=== PATIENT | male | born 1950 | race Caucasian/White ===

== ENCOUNTER 2017-02-15 12:12 | Inpatient (IN) | payer OTHER, MEDICARE ==
[~2017-02-15] VITALS: Ht 170.2 cm; Wt 57.0 kg
[2017-02-15] VITALS (12 sets, daily range): BP systolic 80–125; BP diastolic 54–68; PULSE 83–133; RESP 18; TEMP 97.1–98.6; O2SAT 95–96
[~2017-02-15 12:12] MED LIST: ASPI325T PO; OXYC-360 PO
[2017-02-15] MEDS ORDERED: METO50TA PO (12:40)
[2017-02-15] MEDS ORDERED: AMLO2.5C PO (12:40)
[2017-02-15] MEDS ORDERED: ALBU.5I NEB (12:40)
[2017-02-15] MEDS ORDERED: PRAV20TA2 PO (12:40)
[2017-02-15] MEDS ORDERED: ALBU6.7H INH (12:40)
[2017-02-15] MEDS ORDERED: ASPI325T PO (12:40)
[2017-02-15 12:51] LABS: AUTOMATED NEUTROPHIL # 12.9 TH/MM3 (1.8-7.7); BASOPHIL # 0.2 TH/MM3 (0-0.2); BASOPHIL % 1.3 % (0.0-2.0); EOSINOPHIL % 0.1 % (0.0-4.0); HEMATOCRIT 38.5 % (39.0-51.0); LYMPH % 1.2 % (9.0-44.0); LYMPHOCYTE # 0.2 TH/MM3 (1.0-4.8); MEAN CELL VOLUME 86.7 FL (80.0-100.0); MEAN CORPUSCULAR HEMOGLOBIN 29.1 PG (27.0-34.0); MEAN CORPUSCULAR HGB CONC 33.5 % (32.0-36.0); MONO % 1.8 % (0.0-8.0); NEUT % 95.6 % (16.0-70.0); PLATELET COUNT 311 TH/MM3 (150-450); RED BLOOD COUNT 4.44 MIL/MM3 (4.50-5.90); RED CELL DISTRIBUTION WIDTH 17.2 % (11.6-17.2); WHITE BLOOD COUNT 13.5 TH/MM3 (4.0-11.0)
[2017-02-15 13:00] LABS: HEMO FLAGS DIFF FINAL
[2017-02-15] MEDS ORDERED: SODIUM CHLOR 0.9% 1000 ML INJ 1,000 ML IV ONE ×2 (13:00→17:00)
[2017-02-15 13:10] LABS: ALKALINE PHOSPHATASE 112 U/L (45-117); ALT (GPT) 45 U/L (12-78); ANION GAP 16 MEQ/L (5-15); AST (GOT) 55 U/L (15-37); BICARBONATE 17.9 MEQ/L (21.0-32.0); BLOOD UREA NITROGEN 28 MG/DL (7-18); CHLORIDE 88 MEQ/L (98-107); GLOMERULAR FILTRATION RATE 51 ML/MIN (>89); TOTAL BILIRUBIN ADULT 0.7 MG/DL (0.2-1.0)
[2017-02-15 13:11] LABS: POTASSIUM 4.8 MEQ/L (3.5-5.1)
[2017-02-15 13:12] LABS: SODIUM (NA) 122 MEQ/L (136-145)
--- NOTE | 2017-02-15 13:16 | PD ---
HPI Chief Complaint: GI Complaint Time Seen by Provider: 12:42 Travel History International Travel<30 days: No Contact w/Intl Traveler<30days: No Traveled to known affect area: No History of Present Illness HPI 66-year-old male complains of low back pain and right hip pain, general malaise and weakness and confusion. Patient states that he has nasal congestion for past month and a half. Patient states that he has chronic cough from COPD. Patient states the cough is intermittent and nonproductive. Patient denies any headache. Patient denies any neck pain. Patient denies any chest pain or shortness of breath. Patient denies abdominal pain. Patient complains of aching pain and low back area and right hip area. Patient states that he fell a few days ago and has persistent low back and right hip pain since then. Patient did not hit his head or had loss of consciousness during the fall. Patient states that he had generalized malaise and weakness especially lower extremity for the past week. Patient's family member states that patient seemed to be confused today. PFSH Past Medical History Hx Anticoagulant Therapy: Yes (ASA 325MG DAILY) Arthritis: Yes Cancer: No Cardiovascular Problems: Yes (pvd) High Cholesterol: Yes COPD: Yes Diminished Hearing: No Endocrine: No Genitourinary: No Hypertension: Yes Musculoskeletal: Yes Neurologic: No Psychiatric: No Reproductive: No Respiratory: No Immunizations Current: Yes Influenza Vaccination: No ?: Not Social History Alcohol Use: Yes (BEER) Tobacco Use: No Substance Use: No Allergies-Medications (Allergen,Severity, Reaction): Coded Allergies: No Known Allergies (Verified , 02/15/17) Reported Meds & Prescriptions Reported Meds & Active Scripts Active Reported Aspirin 325 Mg Tab 325 Mg PO DAILY Albuterol Neb (Albuterol Sulfate) 2.5 Mg/0.5 Ml Neb 2.5 Mg NEB BID Note: The Albuterol Sulfate Inhalation Solution is concentrated and must be diluted. Read complete instructions carefully before using. Proventil Hfa 6.7 GM Inh (Albuterol Sulfate) 90 Mcg/Act Aer 1 Puff INH Q4H PRN Amlodipine-Benazepril 2.5-10 Mg Cap 1 Cap PO DAILY Metoprolol Tartrate 50 Mg Tab 50 Mg PO DAILY Pravastatin 20 Mg Tab 20 Mg PO HS Review of Systems General / Constitutional: No: Fever Eyes: No: Visual changes HENT: No: Headaches Cardiovascular: No: Chest Pain or Discomfort Respiratory: Positive: Cough, No: Shortness of Breath Gastrointestinal: No: Abdominal Pain Genitourinary: No: Dysuria Musculoskeletal: No: Pain Skin: No Rash Neurologic: No: Weakness Psychiatric: No: Depression Endocrine: No: Polydipsia Hematologic/Lymphatic: No: Easy Bruising Physical Exam Narrative GENERAL: Well-nourished, well-developed patient. SKIN: Focused skin assessment warm/dry. HEAD: Normocephalic. EYES: No scleral icterus. No injection or drainage. NECK: Supple, trachea midline. No JVD or lymphadenopathy. CARDIOVASCULAR: Regular rate and rhythm without murmurs, gallops, or rubs. RESPIRATORY: Breath sounds equal bilaterally. No accessory muscle use. GASTROINTESTINAL: Abdomen soft, non-tender, nondistended. MUSCULOSKELETAL: No cyanosis, or edema. BACK: Mild tenderness on palpation of the lumbar area, without obvious deformity. No CVA tenderness. Neurologic exam: Patient's awake and alert. Patient oriented 3. Patient moves all extremities well. No obvious focal neurological deficit. Data Data Last Documented VS Vital Signs Date Time Temp Pulse Resp B/P Pulse Ox O2 Delivery O2 Flow Rate FiO2 02/15/17 16:02 112 18 114/67 96 Room Air 02/15/17 12:47 98.6 Orders Complete Blood Count With Diff (02/15/17 12:26) Comprehensive Metabolic Panel (02/15/17 12:26) Lactic Acid Sepsis Protocol (02/15/17 12:26) Blood Culture (02/15/17 12:26) Iv Access Insert/Monitor (02/15/17 12:26) Oxygen Administration (02/15/17 12:26) Oximetry (02/15/17 12:26) Sodium Chlor 0.9% 1000 Ml Inj (Ns 1000 M (02/15/17 13:00) Ct Lumb Spine W/O Contrast (02/15/17 13:02) Hip, Uni(Ap&Lat) W Ap Pelvis (02/15/17 13:02) Ct Brain W/O Iv Contrast(Rout) (02/15/17 13:37) Urinalysis - C+S If Indicated (02/15/17 15:51) Vancomycin Inj (Vancomycin Inj) (02/15/17 16:00) Piperacil-Tazo 3.375 Gm Premix (Zosyn 3. (02/15/17 16:00) Sodium Chlor 0.9% 1000 Ml Inj (Ns 1000 M (02/15/17 16:00) Urine Culture (02/15/17 16:00) Ns (Bolus) Inj (02/15/17 17:00) Labs Laboratory Tests Test 02/15/17 02/15/17 02/15/17 12:40 15:42 16:00 White Blood Count 13.5 TH/MM3 Red Blood Count 4.44 MIL/MM3 Hemoglobin 12.9 GM/DL Hematocrit 38.5 % Mean Corpuscular Volume 86.7 FL Mean Corpuscular Hemoglobin 29.1 PG Mean Corpuscular Hemoglobin 33.5 % Concent Red Cell Distribution Width 17.2 % Platelet Count 311 TH/MM3 Mean Platelet Volume 6.9 FL Neutrophils (%) (Auto) 95.6 % Lymphocytes (%) (Auto) 1.2 % Monocytes (%) (Auto) 1.8 % Eosinophils (%) (Auto) 0.1 % Basophils (%) (Auto) 1.3 % Neutrophils # (Auto) 12.9 TH/MM3 Lymphocytes # (Auto) 0.2 TH/MM3 Monocytes # (Auto) 0.2 TH/MM3 Eosinophils # (Auto) 0.0 TH/MM3 Basophils # (Auto) 0.2 TH/MM3 CBC Comment DIFF FINAL Differential Comment Sodium Level 122 MEQ/L Potassium Level 4.8 MEQ/L Chloride Level 88 MEQ/L Carbon Dioxide Level 17.9 MEQ/L Anion Gap 16 MEQ/L Blood Urea Nitrogen 28 MG/DL Creatinine 1.40 MG/DL Estimat Glomerular Filtration 51 ML/MIN Rate Random Glucose 93 MG/DL Lactic Acid Level 3.3 mmol/L 1.8 mmol/L Calcium Level 8.6 MG/DL Total Bilirubin 0.7 MG/DL Aspartate Amino Transf 55 U/L (AST/SGOT) Alanine Aminotransferase 45 U/L (ALT/SGPT) Alkaline Phosphatase 112 U/L Total Protein 7.0 GM/DL Albumin 2.4 GM/DL Urine Collection Type CLEAN CATCH Urine Color YELLOW Urine Turbidity MOD Urine pH 6.5 Urine Specific [place] 1.006 Urine Protein NEG mg/dL Urine Glucose (UA) NEG mg/dL Urine Ketones TRACE mg/dL Urine Occult Blood SMALL Urine Nitrite NEG Urine Bilirubin NEG Urine Leukocyte Esterase LARGE Urine RBC 10-14 /hpf Urine WBC 15-19 /hpf Urine Squamous Epithelial 0-5 /hpf Cells Urine Bacteria MANY /hpf Microscopic Urinalysis Comment CULTURE INDICATED Urine Collection Time 16:00 [facility] Medical Decision Making Medical Screen Exam Complete: Yes Emergency Medical Condition: Yes Interpretation(s) 1333 PM. WBC 13.3. Hemoglobin 12.9. Hematocrit 38.5. 95 neutrophil. Sodium 122. Chloride 88. Bicarbonate 17.9. BUN 28. Creatinine 1.4. Lactic acid 3.3. 1546 PM. Last Impressions Head CT 02/15/17 1337 Signed Impressions: Service Date/Time: January 13:41 - CONCLUSION: 1. Small left maxillary sinus air-fluid level indicating possible acute sinusitis. 2. Mild diffuse atrophy. 3. No acute intracranial findings. Nacho Park MD Lumbar Spine CT 02/15/17 1302 Signed Impressions: Service Date/Time: January 13:08 - CONCLUSION: 1. Acute to subacute compression fracture the T12 vertebral body. No bony retropulsion. No resulting central canal narrowing. 2. Severe right hydronephrosis and large right-sided renal calculi partially visualized. 3. Multilevel degenerative findings. Minimal central canal narrowing L4-5. 4. Left sided L5 pars interarticularis defect. Nacho Park MD Hip and Pelvis X-Ray 02/15/17 1302 Signed Impressions: Service Date/Time: January 13:19 - CONCLUSION: No evidence of fracture. Nacho Park MD Differential Diagnosis Differential diagnosis including dehydration, left to light imbalance, pneumonia , UTI, sepsis, TIA, CVA, IL, contusion, fracture. Narrative Course 66-year-old male with generalized malaise and weakness poor appetite, shaky, confused, low back pain and right hip pain. Status post fall a few days ago. Normal saline solution 1 L IV bolus. Vancomycin 1 g IV. Zosyn 3.375 g IV given. Normal saline solution 1 L IV bolus. Normal saline solution 1 25 cc an hour. Diagnosis Primary Impression: Sepsis Qualified Code: A41.9 - Sepsis, due to unspecified organism Additional Impressions: Fracture of thoracic spine Qualified Code: S22.089A - Closed fracture of twelfth thoracic vertebra, unspecified fracture morphology, initial encounter Hyponatremia Sinusitis Qualified Code: J01.00 - Acute non-recurrent maxillary sinusitis Nephrolithiasis UTI (urinary tract infection) Qualified Code: N30.00 - Acute cystitis without hematuria Admitting Information Admitting Physician Requests: Admit Emigdio Cohen MD Feb 15, 2017 13:16
--- NOTE | 2017-02-15 14:15 | RADHPO ---
EXAM DATE/TIME: 02/15/2017 13:41 [facility] COMPARISON: No previous studies available for comparison. INDICATIONS : Cephalgia. Sinus pain. RADIATION DOSE: 63.52 CTDIvol (mGy) MEDICAL HISTORY : Hypertension. SURGICAL HISTORY : None. ENCOUNTER: Initial ACUITY: 1 day PAIN SCALE: 2/10 LOCATION: cranial TECHNIQUE: Multiple contiguous axial images were obtained of the head. Using automated exposure control and adj ustment of the mA and/or kV according to patient size, radiation dose was kept as low as reasonably a chievable to obtain optimal diagnostic quality images. FINDINGS: CEREBRUM: Ventricles, sulci, and cisterns are mildly prominent for age. No evidence of midline shift, mass les ion, hemorrhage or acute infarction. No extra-axial fluid collections are seen. POSTERIOR FOSSA: The cerebellum and brainstem are intact. The 4th ventricle is midline. The cerebellopontine angle i s unremarkable. EXTRACRANIAL: Small air-fluid level in the left maxillary sinus. SKULL: The calvaria is intact. No evidence of skull fracture. CONCLUSION: 1. Small left maxillary sinus air-fluid level indicating possible acute sinusitis. 2. Mild diffuse atrophy. 3. No acute intracranial findings. Nacho Park MD on February 15, 2017 at 14:12 Board Certified Radiologist. This report was verified electronically.
--- NOTE | 2017-02-15 14:35 | RADHPO ---
EXAM DATE/TIME: 02/15/2017 13:08 [facility] COMPARISON: No previous studies available for comparison. INDICATIONS : Trauma. Fell 3 days ago. Right low back pain. RADIATION DOSE: 14.89 CTDIvol (mGy) MEDICAL HISTORY : Hypertension. SURGICAL HISTORY : None. ENCOUNTER: Initial ACUITY: 3 days PAIN SCALE: 7/10 LOCATION: Right low back TECHNIQUE: Volumetric scanning of the lumbar spine was performed. Multiplanar reconstructions in the sagittal, coronal and oblique axial planes were performed. Using automated exposure control and adjustment of the mA and/or kV according to patient size, radiation dose was kept as low as reasonably achievable t o obtain optimal diagnostic quality images. FINDINGS: VERTEBRAE: There is fracture of the superior aspect of the T12 vertebral body with mild superior endplate concav ity, 20% decreased height, and horizontal linear sclerosis 3 mm below the superior endplate. No evide nce of bony retropulsion. No resulting central canal narrowing. Appearance favors an acute to subacut e fracture. Left-sided pars interarticularis defect of L5 and sclerosis on the right in the region of the pars interarticularis at L5. ALIGNMENT: No evidence of subluxation. Severe right hydronephrosis and large calculi in the proximal right renal collecting system partially visualized. Aortic bypass graft is identified. Evidence of chronic sigmoid colon diverticular diseas e. T12-L1: Bilateral facet arthrosis. No evidence of focal disc protrusion. Central canal normal diameter. Neura l foraminal diameters within normal limits. L1-L2: Bilateral facet arthrosis. No evidence of focal disc protrusion. Central canal normal diameter. Neura l foraminal diameters within normal limits. L2-L3: Broad-based disc bulge and facet arthrosis. No evidence of focal disc protrusion. Central canal rhonda l diameter. Neural foraminal diameters within normal limits. L3-L4: Broad-based disc bulge and facet arthrosis. No evidence of focal disc protrusion. Central canal rhonda l diameter. Neural foraminal diameters within normal limits. L4-L5: Broad-based disc bulge and facet arthrosis. Mild left greater than right neural foraminal narrowing. Minimal central canal narrowing. L5-S1: Broad-based disc osteophyte complex and bilateral facet arthrosis. Mild bilateral neural foraminal na rrowing. CONCLUSION: 1. Acute to subacute compression fracture the T12 vertebral body. No bony retropulsion. No resulting central canal narrowing. 2. Severe right hydronephrosis and large right-sided renal calculi partially visualized. 3. Multilevel degenerative findings. Minimal central canal narrowing L4-5. 4. Left sided L5 pars interarticularis defect. Nacho Park MD on February 15, 2017 at 14:26 Board Certified Radiologist. This report was verified electronically.
[2017-02-15 14:47] LABS: LACTIC ACID GHOST NOT REPORTABLE
--- NOTE | 2017-02-15 14:53 | RADHPO ---
EXAM DATE/TIME: 02/15/2017 13:19 [facility] COMPARISON: No previous studies available for comparison. INDICATIONS : Right hip pain; fall 3 days ago. MEDICAL HISTORY : Arthritis. SURGICAL HISTORY : None. ENCOUNTER: Initial ACUITY: 3 days PAIN SCORE: 7/10 LOCATION: Right hip FINDINGS: 3 views of the right hip and pelvis. Bone alignment within normal limits. No evidence of fracture. M inimal osteophyte formation of the right hip. Diffuse arterial calcification. CONCLUSION: No evidence of fracture. Nacho Park MD on February 15, 2017 at 14:49 Board Certified Radiologist. This report was verified electronically.
[2017-02-15] MEDS ORDERED: PIPERACIL-TAZO 3.375 GM PREMIX 50 ML IV ONE (16:00)
[2017-02-15] MEDS ORDERED: SODIUM CHLOR 0.9% 1000 ML INJ 1,000 ML IV SCH ×2 (16:00→17:00)
[2017-02-15] MEDS ORDERED: VANCOMYCIN INJ 1,000 MG in SODIUM CHLOR 0.9% 250 ML INJ 250 ML IV ONE (16:00)
[2017-02-15 16:13] LABS: BLOOD, URINE SMALL (NEG); GLUCOSE,URINE NEG (NEG); KETONE, URINE TRACE mg/dL (NEG); NITRITE,URINE NEG (NEG); PH, URINE 6.5 (5.0-8.5)
[2017-02-15 16:22] LABS: METHOD OF COLLECTION CLEAN CATCH; URINE COLOR YELLOW (YELLW/STRAW)
[2017-02-15 16:23] LABS: BACTERIA, URINE MANY /hpf; SQUAMOUS EPITHELIAL CELL URINE 0-5 /hpf (0-5); WBC, URINE 15-19 /hpf (0-5)
[2017-02-15 16:24] LABS: COMMENT (UR) CULTURE INDICATED; CULTURE IF INDICATED CULTURE INDICATED
--- NOTE | 2017-02-15 17:21 | RADHPO ---
EXAM DATE/TIME: 02/15/2017 17:09 [facility] COMPARISON: No previous studies available for comparison. INDICATIONS : Cough. MEDICAL HISTORY : Heart disease SURGICAL HISTORY : Coronary artery stent. ENCOUNTER: Initial ACUITY: 1 day PAIN SCORE: 2/10 LOCATION: Bilateral chest FINDINGS: Single AP view of the chest. Moderate left hemidiaphragm elevation The lungs are clear. Cardiomediast inal silhouette within normal limits. No evidence of pleural effusion or pneumothorax. CONCLUSION: 1. Moderate left hemidiaphragm elevation. 2. No other acute cardiopulmonary disease identified. Nacho Park MD on February 15, 2017 at 17:18 Board Certified Radiologist. This report was verified electronically.
--- NOTE | 2017-02-15 17:55 | RADHPO ---
EXAM DATE/TIME: 02/15/2017 17:18 [facility] COMPARISON: CTA RUNOFF W 3D RECON, February 01, 2011, 9:27. INDICATIONS : Right lower back pain. ORAL CONTRAST: No oral contrast ingested. RADIATION DOSE: 6.39 CTDIvol (mGy) MEDICAL HISTORY : None SURGICAL HISTORY : None. ENCOUNTER: Initial ACUITY: 3 days PAIN SCALE: 7/10 LOCATION: Right lower back TECHNIQUE: Volumetric scanning of the abdomen and pelvis was performed. Using automated exposure control and ad justment of the mA and/or kV according to patient size, radiation dose was kept as low as reasonably achievable to obtain optimal diagnostic quality images. FINDINGS: LOWER LUNGS: Mild atelectasis of the lung bases. LIVER: Homogeneous density without lesion. There is no dilation of the biliary tree. No calcified gallston es. SPLEEN: Normal size without lesion. PANCREAS: Within normal limits. KIDNEYS: Multiple irregular shaped calculi in the right renal pelvis and proximal ureter and the renal pelvis the abnormality measures in aggregate 3 cm x 1.6 cm. At the ureteropelvic junction measures 1.5 x 1.1 cm in aggregate. Hounsfield unit measurements are proximally 200-300. The moderate to severe right h ydronephrosis. 3 cm cortical cyst in the medial right upper pole. 2 cm round hypodensity in the later al midpole, nonspecific. Mid to distal right ureter are within normal limits. No calculi identified i n the left kidney. Left ureter are within normal limits. ADRENAL GLANDS: Within normal limits. VASCULAR: Diffuse aortic calcification. Aortobifem grafts noted.. BOWEL/MESENTERY: Diffuse thickening of the proximal to mid sigmoid colon with numerous diverticula indicating chronic diverticular disease. No evidence of acute diverticulitis. ABDOMINAL WALL: Within normal limits. RETROPERITONEUM: There is no lymphadenopathy. BLADDER: Numerous small bladder calculi at the dependent portion of the bladder. Superior nonspecific focal bl adder wall thickening measuring 1.2 cm in thickness and 5 cm in medial to lateral dimension. 1.5 cm c alculus is seen in the dependent superior portion of the urinary bladder and the region of wall thick ening. REPRODUCTIVE: Within normal limits. INGUINAL: There is no lymphadenopathy or hernia. MUSCULOSKELETAL: Degenerative findings of the lumbar spine. CONCLUSION: 1. Large calculi in the right renal pelvis and proximal ureter. 2. Moderate to severe right hydronephrosis. 3. Nonspecific superior urinary bladder wall thickening. Malignancy is in the differential diagnosis. 4. Multiple bladder calculi. 5. Chronic sigmoid colon diverticular disease. Nacho Park MD on February 15, 2017 at 17:44 Board Certified Radiologist. This report was verified electronically.
[2017-02-15] MEDS ORDERED: NALOXONE HCL 0.4 MG/ML AMP IV PRN (19:15)
[2017-02-15] MEDS ORDERED: ONDANSETRON HCL 4 MG/2 ML VIAL IVP PRN (19:15)
[2017-02-15] MEDS ORDERED: MAGNESIUM HYDROXIDE SUSP 30 ML CUP PO PRN (19:15)
[2017-02-15] MEDS ORDERED: RESP: ALBUTEROL 2.5 MG/IPRATROPIUM 0.5 MG NEB (PRN) NEB (19:15)
[2017-02-15] MEDS ORDERED: ACETAMINOPHEN 325 MG TAB PO PRN (19:15)
[2017-02-15] MEDS ORDERED: SODIUM CHLORIDE 0.9% FLUSH 10 ML FLUSH IV FLUSH PRN (19:15)
[2017-02-15] MEDS: SODIUM CHLOR 0.9% 1000 ML INJ 1,000 ML IV SCH (20:19)
[2017-02-15] MEDS: MORPHINE SULFATE 4 MG/ML INJ IV PUSH PRN (20:30)
[2017-02-15] MEDS: SODIUM CHLORIDE 0.9% FLUSH 10 ML FLUSH IV FLUSH SCH (20:30)
[2017-02-15] MEDS: PRAVASTATIN SOD 20 MG TAB PO SCH (20:48)
--- NOTE | 2017-02-15 23:05 | HHI.HP ---
[facility]ician Kev Mitchell MD Admission Diagnosis UTI, HYDRONEPHROSIS Diagnoses: Chief Complaint: Left hip pain Travel History International Travel<30 Days: No Contact w/Intl Traveler <30 Da: No Traveled to Known Affected Are: No Sepsis Criteria SIRS Criteria (2 or more): Heart rate over 90, WBC > 60848, < 4000 or > 10% bands Sepsis Criteria (SIRS+source): Infect source susp/known Severe Sepsis (+one): Lactate >2 History of Present Illness 66 y/o male with a history of HTN, HLD, PVD and COPD presented to the ED with complains of severe right hip pain after suffering a fall on Sunday. Patient states he tripped over his dog in the bathroom and feel between the toilet and sink. At the time he was unable to get up so he asked his son for help. Once he got up he was able to walk around, the pain did not get better and her tried to get into his Dr but was able to. He states the pain is aching and mostly only in his right hip, no associated symptoms noted. Patient denies any fever, chill, nausea, vomiting or dysuria. Although he does not have pain with urination he states he has noticed he is urinating less often. Review of Systems Constitutional: DENIES: Fever, Chills Respiratory: DENIES: Cough, Sputum production, Shortness of breath Cardiovascular: DENIES: Chest pain, Lower Extremity Edema Gastrointestinal: DENIES: Constipation, Diarrhea, Nausea, Vomiting Genitourinary: DENIES: Hematuria, Dysuria Musculoskeletal: COMPLAINS OF: Joint pain, DENIES: Neck pain Integumentary: DENIES: Rash Hematologic/lymphatic: DENIES: Lymphadenopathy Immunologic/allergic: DENIES: Urticaria Neurologic: DENIES: Headache Past Family Social History Past Medical History HTN HLD PVD COPD Past Surgical History Bilateral femoral bypass Reported Medications Reported Meds & Active Scripts Active Reported Aspirin 325 Mg Tab 325 Mg PO DAILY Albuterol Neb (Albuterol Sulfate) 2.5 Mg/0.5 Ml Neb 2.5 Mg NEB BID Note: The Albuterol Sulfate Inhalation Solution is concentrated and must be diluted. Read complete instructions carefully before using. Proventil Hfa 6.7 GM Inh (Albuterol Sulfate) 90 Mcg/Act Aer 1 Puff INH Q4H PRN Amlodipine-Benazepril 2.5-10 Mg Cap 1 Cap PO DAILY Metoprolol Tartrate 50 Mg Tab 50 Mg PO DAILY Pravastatin 20 Mg Tab 20 Mg PO HS Allergies: Coded Allergies: No Known Allergies (Verified , 02/15/17) Active Ordered Medications Current Medications Medications (Trade) Dose Ordered Sig/Evelyne Route Start Time Stop Time Status Last Admin Piperacillin Sod/ Tazobactam Sod 50 ml @ 100 mls/hr Q6H IV 02/16/17 00:00 (NS 1000 ml Inj) 1,000 ml @ 100 mls/hr Q10H IV 02/15/17 19:07 02/15/17 20:19 (NS Flush) 2 ml UNSCH PRN IV FLUSH 02/15/17 19:15 (NS Flush) 2 ml BID IV FLUSH 02/15/17 21:00 (Tylenol) 650 mg Q4H PRN PO 02/15/17 19:15 (Zofran Inj) 4 mg Q6H PRN IVP 02/15/17 19:15 (Milk Of Magnesia Liq) 30 ml Q12H PRN PO 02/15/17 19:15 (Narcan Inj) 0.4 mg UNSCH PRN IV 02/15/17 19:15 (Aspirin) 325 mg DAILY PO 02/16/17 09:00 (Pravachol) 20 mg HS PO 02/15/17 21:00 02/15/17 20:48 (Morphine Inj) 2 mg Q3H PRN IV PUSH 02/15/17 20:15 02/15/17 20:30 Family History Mom: Lung cancer Dad: age 32 struck by lightening Sister: Lupus Social History Tobacco use: Quit many years ago Alcohol use: 4-5 beers a day Illicit drug use: Denies Physical Exam Vital Signs Vital Signs Date Time Temp Pulse Resp B/P Pulse Ox O2 Delivery O2 Flow Rate FiO2 02/15/17 21:34 97.1 87 18 125/65 96 02/15/17 20:45 86 18 114/64 95 02/15/17 20:30 84 18 109/66 95 Room Air 3/30/17 19:00 97.9 90 18 114/63 95 Room Air 02/15/17 19:00 18 02/15/17 17:36 98.5 93 18 111/54 95 Room Air 02/15/17 16:02 112 18 114/67 96 Room Air 02/15/17 14:13 105 18 107/64 96 Room Air 02/15/17 13:34 113 18 103/63 96 Room Air 02/15/17 12:48 120 18 80/55 96 Room Air 02/15/17 12:47 98.6 122 18 85/68 96 Room Air 02/15/17 12:45 98 Room Air 02/15/17 12:19 98.6 133 18 81/56 96 Physical Exam GENERAL: This is a well-nourished, well-developed patient, in no apparent distress. SKIN: No rashes, ecchymoses or lesions. Cool and dry. HEAD: Atraumatic. Normocephalic. EYES: Pupils equal round and reactive. No injection or drainage. ENT: Nose without bleeding, purulent drainage or septal hematoma. Airway patent. NECK: Trachea midline. No JVD or lymphadenopathy. Supple, nontender, no meningeal signs. CARDIOVASCULAR: Regular rate and rhythm without murmurs, gallops, or rubs. RESPIRATORY: Clear to auscultation. Breath sounds equal bilaterally. No wheezes , rales, or rhonchi. GASTROINTESTINAL: Abdomen soft, non-tender, nondistended. No hepato-splenomegaly , or palpable masses. No guarding. MUSCULOSKELETAL: Extremities without clubbing, cyanosis, or edema. No joint tenderness, effusion, or edema noted. No calf tenderness. NEUROLOGICAL: Awake and alert. Motor and sensory grossly within normal limits. Normal speech. Laboratory Laboratory Tests Test 02/15/17 02/15/17 02/15/17 12:40 15:42 16:00 White Blood Count 13.5 Red Blood Count 4.44 Hemoglobin 12.9 Hematocrit 38.5 Mean Corpuscular Volume 86.7 Mean Corpuscular Hemoglobin 29.1 Mean Corpuscular Hemoglobin 33.5 Concent Red Cell Distribution Width 17.2 Platelet Count 311 Mean Platelet Volume 6.9 Neutrophils (%) (Auto) 95.6 Lymphocytes (%) (Auto) 1.2 Monocytes (%) (Auto) 1.8 Eosinophils (%) (Auto) 0.1 Basophils (%) (Auto) 1.3 Neutrophils # (Auto) 12.9 Lymphocytes # (Auto) 0.2 Monocytes # (Auto) 0.2 Eosinophils # (Auto) 0.0 Basophils # (Auto) 0.2 CBC Comment DIFF FINAL Differential Comment Sodium Level 122 Potassium Level 4.8 Chloride Level 88 Carbon Dioxide Level 17.9 Anion Gap 16 Blood Urea Nitrogen 28 Creatinine 1.40 Estimat Glomerular Filtration 51 Rate Random Glucose 93 Lactic Acid Level 3.3 1.8 Calcium Level 8.6 Total Bilirubin 0.7 Aspartate Amino Transf 55 (AST/SGOT) Alanine Aminotransferase 45 (ALT/SGPT) Alkaline Phosphatase 112 Total Protein 7.0 Albumin 2.4 Urine Collection Type CLEAN CATCH Urine Color YELLOW Urine Turbidity MOD Urine pH 6.5 Urine Specific [place] 1.006 Urine Protein NEG Urine Glucose (UA) NEG Urine Ketones TRACE Urine Occult Blood SMALL Urine Nitrite NEG Urine Bilirubin NEG Urine Leukocyte Esterase LARGE Urine RBC 10-14 Urine WBC 15-19 Urine Squamous Epithelial 0-5 Cells Urine Bacteria MANY Microscopic Urinalysis Comment CULTURE INDICATED Urine Collection Time 16:00 Date/Time Procedure Status Source Growth 02/15/17 16:00 Urine Culture Received Urine Clean Catch Pending 02/15/17 13:00 Aerobic Blood Culture Received Blood Peripheral Pending 02/15/17 13:00 Anaerobic Blood Culture Received Blood Peripheral Pending Result Diagram: 02/15/17 1240 02/15/17 1240 Imaging Last Impressions Chest X-Ray 02/15/171658 Signed Impressions: Service Date/Time: January 17:09 - CONCLUSION: 1. Moderate left hemidiaphragm elevation. 2. No other acute cardiopulmonary disease identified. Nacho Park MD Abdomen/Pelvis CT 02/15/179 Signed Impressions: Service Date/Time: January 17:18 - CONCLUSION: 1. Large calculi in the right renal pelvis and proximal ureter. 2. Moderate to severe right hydronephrosis. 3. Nonspecific superior urinary bladder wall thickening. Malignancy is in the differential diagnosis. 4. Multiple bladder calculi. 5. Chronic sigmoid colon diverticular disease. Nacho Park MD Head CT 02/15/17 1337 Signed Impressions: Service Date/Time: January 13:41 - CONCLUSION: 1. Small left maxillary sinus air-fluid level indicating possible acute sinusitis. 2. Mild diffuse atrophy. 3. No acute intracranial findings. Nacho Park MD Lumbar Spine CT 02/15/17 1302 Signed Impressions: Service Date/Time: January 13:08 - CONCLUSION: 1. Acute to subacute compression fracture the T12 vertebral body. No bony retropulsion. No resulting central canal narrowing. 2. Severe right hydronephrosis and large right-sided renal calculi partially visualized. 3. Multilevel degenerative findings. Minimal central canal narrowing L4-5. 4. Left sided L5 pars interarticularis defect. Nacho Park MD Hip and Pelvis X-Ray 02/15/17 1302 Signed Impressions: Service Date/Time: January 13:19 - CONCLUSION: No evidence of fracture. Nacho Park MD Assessment and Plan Problem List: (1) UTI (urinary tract infection) ICD Code: N39.0 Status: Acute (2) Hydronephrosis ICD Code: N13.30 Status: Acute (3) Nephrolithiasis ICD Code: N20.0 Status: Acute (4) Hyponatremia ICD Code: E87.1 Status: Acute (5) Fracture of thoracic spine ICD Code: S22.009A Status: Acute (6) HLD (hyperlipidemia) ICD Code: E78.5 Status: Chronic (7) HTN (hypertension) ICD Code: I10 Status: Chronic Assessment and Plan 66 y/o male with a history of HTN, HLD, PVD and COPD presented to the ED with complains of severe right hip pain after suffering a fall on Sunday. UTI/Sepsis per hospital criteria WBC 51734, HR 112, lactic 3.3- repeat after fluid 1.8 UA positive large leukocyte esterase -Urine culture and blood cultures pending -Zosyn IV Nephrolithiasis/hydronephrosis/ Acute Kidney injury Images: Abdominal CT shows Large calculi in the right renal pelvis and proximal ureter. Moderate to severe right hydronephrosis. Nonspecific superior urinary bladder wall thickening. Malignancy is in the differential diagnosis. 4. Multiple bladder calculi. Labs: creatine 1.4, baseline .6 -Supportive IVF -Pain management with IV Morphine -Consult Urology for recommendations -Avoid nephrotoxin medications -Trend Creatine Hyponatremia Labs: Na 122 -Cont IVF -BMP in AM and trend Thoracic spine fx, T12 Images: Lumbar Spine CT shows an acute to subacute compression fracture the T12 vertebral body. No bony retropulsion. No resulting central canal narrowing. -Consult neurosurgery for recommendations -Pain management with IV morphine Hyperlipidemia, chronic: cont home medication pravastatin HTN, chronic: Hypotension on admission, will hold BP medications for now, Cont to monitor vitals Dvt prophylaxes: Scds Written by Sanam Osullivan, acting as scribe for Dr. Ferraro on 02/15/17 at 2350 All or portions of this note were transcribed by scribe [Sanam Osullivan]. I, Dr. Vera Ferraro personally performed the history, physical exam, and medical decision making; and confirmed the accuracy of the information in the transcribed note. Authenticated by Dr. Vera Ferraro on 02/15/17 at 2350 Discussed Condition With Patient and RN Physician Certification 2 Midnight Certification Type: Admission for Inpatient Services Order for Inpatient Services The services are ordered in accordance with Medicare regulations or non- Medicare payer requirements, as applicable. In the case of services not specified as inpatient-only, they are appropriately provided as inpatient services in accordance with the 2-midnight benchmark. Estimated LOS (days): 2 days is the estimated time the patient will need to remain in the hospital, assuming treatment plan goals are met and no additional complications. Post-Hospital Plan: Home Problem Qualifiers (1) UTI (urinary tract infection): Qualified Code: N30.00 - Acute cystitis without hematuria (2) Fracture of thoracic spine: Qualified Code: S22.089A - Closed fracture of twelfth thoracic vertebra, unspecified fracture morphology, initial encounter Sanam Osullivan Feb 15, 2017 23:05 Vera Ferraro MD Feb 16, 2017 08:18
[2017-02-16] MEDS: PIPERACIL-TAZO 3.375 GM PREMIX 50 ML IV SCH ×5 (00:35→23:31)
--- NOTE | 2017-02-16 04:48 | PD.CONS ---
[facility] Service Neurosurg Consult Requested By Dr Vizcarra Reason for Consult Compression fracture Primary Care Physician Kev Mitchell MD History of Present Illness tHIS IS A 66 y/o male with a history of HTN, HLD, PVD and COPD WHO presented to the [place] emergency department with complains of severe right hip pain after suffering a fall on Sunday.Apparetly he tripped over his dog in the bathroom and feel between the toilet and sink. He was unable to get up so he asked his son for help. Once he got up he was able to walk around. He describes the pain as aching and mostly only in his right hip, no associated symptoms noted. Patient denies any fever, chill, nausea, vomiting or dysuria. He has noticed he is urinating less often. CT of the lumbar spine show a compression fracture. A neurosurgical consultation was requested Review of Systems Constitutional: DENIES: Fever, Chills Respiratory: DENIES: Cough, Sputum production, Shortness of breath Cardiovascular: DENIES: Chest pain, Lower Extremity Edema Gastrointestinal: DENIES: Constipation, Diarrhea, Nausea, Vomiting Genitourinary: DENIES: Hematuria, Dysuria Musculoskeletal: COMPLAINS OF: Joint pain, DENIES: Neck pain Integumentary: DENIES: Rash Hematologic/lymphatic: DENIES: Lymphadenopathy Immunologic/allergic: DENIES: Urticaria Neurologic: DENIES: Headache Past Family Social History Allergies: Coded Allergies: No Known Allergies (Verified , 02/15/17) Past Medical History HTN HLD PVD COPD Past Surgical History Bilateral femoral bypass Reported Medications Aspirin 325 Mg Tab 325 Mg PO DAILY Albuterol Neb (Albuterol Sulfate) 2.5 Mg/0.5 Ml Neb 2.5 Mg NEB BID Note: The Albuterol Sulfate Inhalation Solution is concentrated and must be diluted. Read complete instructions carefully before using. Proventil Hfa 6.7 GM Inh (Albuterol Sulfate) 90 Mcg/Act Aer 1 Puff INH Q4H PRN Amlodipine-Benazepril 2.5-10 Mg Cap 1 Cap PO DAILY Metoprolol Tartrate 50 Mg Tab 50 Mg PO DAILY Pravastatin 20 Mg Tab 20 Mg PO HS Active Ordered Medications Current Medications Medications (Trade) Dose Ordered Sig/Evelyne Route Start Time Stop Time Status Last Admin Piperacillin Sod/ Tazobactam Sod 50 ml @ 100 mls/hr Q6H IV 02/16/17 00:00 (NS 1000 ml Inj) 1,000 ml @ 100 mls/hr Q10H IV 02/15/17 19:07 02/15/17 20:19 (NS Flush) 2 ml UNSCH PRN IV FLUSH 02/15/17 19:15 (NS Flush) 2 ml BID IV FLUSH 02/15/17 21:00 (Tylenol) 650 mg Q4H PRN PO 02/15/17 19:15 (Zofran Inj) 4 mg Q6H PRN IVP 02/15/17 19:15 (Milk Of Magngonzalez Liq) 30 ml Q12H PRN PO 02/15/17 19:15 (Narcan Inj) 0.4 mg UNSCH PRN IV 02/15/17 19:15 (Aspirin) 325 mg DAILY PO 02/16/17 09:00 (Pravachol) 20 mg HS PO 02/15/17 21:00 02/15/17 20:48 (Morphine Inj) 2 mg Q3H PRN IV PUSH 02/15/17 20:15 02/15/17 20:30 Family History Mom: Lung cancer Dad: age 32 struck by lightening Sister: Lupus Social History Tobacco use: Quit many years ago Alcohol use: 4-5 beers a day Illicit drug use: Denies Physical Exam Vital Signs Vital Signs Date Time Temp Pulse Resp B/P Pulse Ox O2 Delivery O2 Flow Rate FiO2 02/15/17 22:30 83 02/15/17 21:34 97.1 87 18 125/65 96 02/15/17 20:45 86 18 114/64 95 02/15/17 20:30 84 18 109/66 95 Room Air 02/15/17 19:00 97.9 90 18 114/63 95 Room Air 02/15/17 19:00 18 02/15/17 17:36 98.5 93 18 111/54 95 Room Air 02/15/17 16:02 112 18 114/67 96 Room Air 02/15/17 14:13 105 18 107/64 96 Room Air 02/15/17 13:34 113 18 103/63 96 Room Air 02/15/17 12:48 120 18 80/55 96 Room Air 02/15/17 12:47 98.6 122 18 85/68 96 Room Air 02/15/17 12:45 98 Room Air 02/15/17 12:19 98.6 133 18 81/56 96 Physical Exam Mr Lehman is alert, awake and oriented to time, place and person. Speech is fluent. Higher cognitive functions are normal. Cranial nerve examination demonstrates the pupils to be equal, round, and reactive to light. Extra-ocular movements are intact. Facial motor and sensory function are normal and symmetrical. Gross hearing is intact, bilaterally. The uvula is midline and elevates symmetrically with the soft palate. Sternocleidomastoid and trapezius muscles have normal and symmetrical strength. Other cranial nerves are intact. Neck is soft and supple. Cervical spine has a full range of motion in anterior flexion, extension, lateral bending, and rotation without pain. There is no tenderness to palpation to the spinous processes or paraspinal muscles. Muscle testing reveals normal bulk and tone overall without rigidity, spasticity , fasciculations, or atrophy. Muscle strength is 5/5 in all muscle groups of both upper extremities including deltoid, biceps, triceps, brachioradialis, wrist extension and perfumer. In the lower extremities, strength is 5/5 in both iliopsoas, quadriceps, hamstrings, plantar flexion, dorsiflexion, and extensor hallicus longus. Sensory examination is intact to light touch and sharp/dull discrimination in both the upper and lower extremities, symmetrically. Deep tendon reflexes are 2+ and symmetrical in the biceps, triceps, and brachioradialis, bilaterally, in the upper extremities. In the lower extremities , the patellar and Achilles are 2+, bilaterally. There is a bilateral plantar flexion response. Hoffmanns sign is negative. There is no clonus or other abnormal reflexes noted. Cerebellar examination is intact to [id number] test, rapid rhythmic alternating motion. There is no dysmetria, dysdiadochokinesia, truncal ataxia, or tremor. Laboratory Laboratory Tests Test 02/15/17 02/15/17 02/15/17 12:40 15:42 16:00 White Blood Count 13.5 Red Blood Count 4.44 Hemoglobin 12.9 Hematocrit 38.5 Mean Corpuscular Volume 86.7 Mean Corpuscular Hemoglobin 29.1 Mean Corpuscular Hemoglobin 33.5 Concent Red Cell Distribution Width 17.2 Platelet Count 311 Mean Platelet Volume 6.9 Neutrophils (%) (Auto) 95.6 Lymphocytes (%) (Auto) 1.2 Monocytes (%) (Auto) 1.8 Eosinophils (%) (Auto) 0.1 Basophils (%) (Auto) 1.3 Neutrophils # (Auto) 12.9 Lymphocytes # (Auto) 0.2 Monocytes # (Auto) 0.2 Eosinophils # (Auto) 0.0 Basophils # (Auto) 0.2 CBC Comment DIFF FINAL Differential Comment Sodium Level 122 Potassium Level 4.8 Chloride Level 88 Carbon Dioxide Level 17.9 Anion Gap 16 Blood Urea Nitrogen 28 Creatinine 1.40 Estimat Glomerular Filtration 51 Rate Random Glucose 93 Lactic Acid Level 3.3 1.8 Calcium Level 8.6 Total Bilirubin 0.7 Aspartate Amino Transf 55 (AST/SGOT) Alanine Aminotransferase 45 (ALT/SGPT) Alkaline Phosphatase 112 Total Protein 7.0 Albumin 2.4 Urine Collection Type CLEAN CATCH Urine Color YELLOW Urine Turbidity MOD Urine pH 6.5 Urine Specific [place] 1.006 Urine Protein NEG Urine Glucose (UA) NEG Urine Ketones TRACE Urine Occult Blood SMALL Urine Nitrite NEG Urine Bilirubin NEG Urine Leukocyte Esterase LARGE Urine RBC 10-14 Urine WBC 15-19 Urine Squamous Epithelial 0-5 Cells Urine Bacteria MANY Microscopic Urinalysis Comment CULTURE INDICATED Urine Collection Time 16:00 Date/Time Procedure Status Source Growth 02/15/17 16:00 Urine Culture Received Urine Clean Catch Pending 02/15/17 13:00 Aerobic Blood Culture Received Blood Peripheral Pending 02/15/17 13:00 Anaerobic Blood Culture Received Blood Peripheral Pending Result Diagram: 02/15/17 1240 02/15/17 1240 Imaging Last Impressions Chest X-Ray 02/15/171658 Signed Impressions: Service Date/Time: January 17:09 - CONCLUSION: 1. Moderate left hemidiaphragm elevation. 2. No other acute cardiopulmonary disease identified. Nacho Park MD Abdomen/Pelvis CT 02/15/171658 Signed Impressions: Service Date/Time: January 17:18 - CONCLUSION: 1. Large calculi in the right renal pelvis and proximal ureter. 2. Moderate to severe right hydronephrosis. 3. Nonspecific superior urinary bladder wall thickening. Malignancy is in the differential diagnosis. 4. Multiple bladder calculi. 5. Chronic sigmoid colon diverticular disease. Nacho Park MD Head CT 02/15/17 1337 Signed Impressions: Service Date/Time: January 13:41 - CONCLUSION: 1. Small left maxillary sinus air-fluid level indicating possible acute sinusitis. 2. Mild diffuse atrophy. 3. No acute intracranial findings. Nacho Park MD Lumbar Spine CT 02/15/17 1302 Signed Impressions: Service Date/Time: January 13:08 - CONCLUSION: 1. Acute to subacute compression fracture the T12 vertebral body. No bony retropulsion. No resulting central canal narrowing. 2. Severe right hydronephrosis and large right-sided renal calculi partially visualized. 3. Multilevel degenerative findings. Minimal central canal narrowing L4-5. 4. Left sided L5 pars interarticularis defect. Nacho Park MD Hip and Pelvis X-Ray 02/15/17 1302 Signed Impressions: Service Date/Time: January 13:19 - CONCLUSION: No evidence of fracture. Nacho Park MD Assessment and Plan Assessment and Plan (1) UTI (urinary tract infection) ICD Code: N39.0 Status: Acute (2) Hydronephrosis ICD Code: N13.30 Status: Acute (3) Nephrolithiasis ICD Code: N20.0 Status: Acute (4) Hyponatremia ICD Code: E87.1 Status: Acute (5) Fracture of thoracic spine ICD Code: S22.009A Status: Acute (6) HLD (hyperlipidemia) ICD Code: E78.5 Status: Chronic (7) HTN (hypertension) ICD Code: I10 Status: Chronic Assessment and Plan 66 y/o male with a history of HTN, HLD, PVD and COPD presented to the ED with complains of severe right hip pain after suffering a fall on Sunday. Attending Statement I have reviewed his clinical and further studies. neuro checks in a serial fashion. Recommend MRI of the thoracic spine. Thoracic spine fx, T12. I have discussed with him the alternatives of treatment, including the possibility of a kyphoplasty versus conservative management with a TLSO brace. He is requesting conservative treatment of his pain is not so severe. Respiratory. pulmonary toilette, nasotracheal suction, and breathing treatments with nebulizers. PT and OT eval Hyponatremia. NaCl, BMP in AM and trend Nutrition. Oral diet, renal Renal. Nephrolithiasis/hydronephrosis/ Acute Kidney injury Abdominal CT shows Large calculi in the right renal pelvis and proximal ureter. Moderate to severe right hydronephrosis. Nonspecific superior urinary bladder wall thickening. Malignancy is in the differential diagnosis. 4. Multiple bladder calculi. Hyperlipidemia, chronic: cont home medication pravastatin HTN, chronic: Hypotension on admission, will hold BP medications for now, Cont to monitor vitals Endocrine. Monitor serial Acu checks and SSI for tight control ID UA positive large leukocyte esterase -Urine culture and blood cultures pending -Zosyn IV Protonix for stress ulcer prophylaxis Berry hose and SCD's for DVT prophylaxis Jose Dubois MD Feb 16, 2017 04:47
[2017-02-16] MEDS: SODIUM CHLOR 0.9% 1000 ML INJ 1,000 ML IV SCH ×2 (05:07→15:00)
[2017-02-16 08:00] VITALS: BP 106/57; PULSE 86; RESP 16; TEMP 97.1; O2SAT 93
[2017-02-16] MEDS: SODIUM CHLORIDE 0.9% FLUSH 10 ML FLUSH IV FLUSH SCH ×2 (08:14→20:26)
[2017-02-16] MEDS: MORPHINE SULFATE 4 MG/ML INJ IV PUSH PRN ×4 (08:14→23:36)
[2017-02-16] MEDS: ASPIRIN 325 MG TAB PO SCH (08:14)
--- NOTE | 2017-02-16 09:12 | PD.CONS ---
HPI Service Urology Consult Requested By Primary Care Physician Kev Mitchell MD Diagnosis: (1) UTI (urinary tract infection) ICD Code: N39.0 (2) Hydronephrosis ICD Code: N13.30 (3) Nephrolithiasis ICD Code: N20.0 (4) Hyponatremia ICD Code: E87.1 (5) Fracture of thoracic spine ICD Code: S22.009A (6) HLD (hyperlipidemia) ICD Code: E78.5 (7) HTN (hypertension) ICD Code: I10 History of Present Illness 66 year-old gentleman with no prior history renal calculi who presented to the emergency room after sustaining a fall 3 days ago complaining of right hip pain. Workup included a CT scan which demonstrated a large right renal calculus as well as a proximal right ureteral calculus causing moderate hydronephrosis. Other urologic findings included bladder wall thickening and multiple small bladder calculi. Patient also was noted to have a compression fracture of T12 and neurosurgery is presently involved in this patient's care. At the time of consultation the patient denied any significant right flank pain. He denies hematuria. Review of Systems Constitutional: DENIES: Fever, Chills Gastrointestinal: DENIES: Abdominal pain Genitourinary: DENIES: Hematuria, Dysuria Musculoskeletal: DENIES: Back pain Except as stated in HPI: all other systems reviewed are Neg Past Family Social History Past Medical History COPD Hypertension Hyperlipidemia Peripheral vascular disease Past Surgical History Status post bilateral femoral bypass surgery Reported Medications Refer to EMR Allergies: Coded Allergies: No Known Allergies (Verified , 02/15/17) Active Ordered Medications Refer to EMR Family History No family history urologic disease Social History Former smoker who quit many years ago Drinks 4-5 beers per day Denies history IV drug abuse Physical Exam Vital Signs Date Time Temp Pulse Resp B/P Pulse Ox O2 Delivery O2 Flow Rate FiO2 02/16/17 08:19 18 02/16/17 08:00 97.1 86 16 106/57 93 02/15/17 22:30 83 02/15/17 21:34 97.1 87 18 125/65 96 02/15/17 20:45 86 18 114/64 95 02/15/17 20:30 84 18 109/66 95 Room Air 02/15/17 19:00 97.9 90 18 114/63 95 Room Air 02/15/17 19:00 18 02/15/17 17:36 98.5 93 18 111/54 95 Room Air 02/15/17 16:02 112 18 114/67 96 Room Air 02/15/17 14:13 105 18 107/64 96 Room Air 02/15/17 13:34 113 18 103/63 96 Room Air 02/15/17 12:48 120 18 80/55 96 Room Air 02/15/17 12:47 98.6 122 18 85/68 96 Room Air 02/15/17 12:45 98 Room Air 02/15/17 12:19 98.6 133 18 81/56 96 Physical Exam GENERAL: This is a well-nourished, well-developed patient, in no apparent distress. SKIN: No rashes, ecchymoses or lesions. Cool and dry. HEAD: Atraumatic. Normocephalic. No temporal or scalp tenderness. EYES: Pupils equal round and reactive. Extraocular motions intact. No scleral icterus. No injection or drainage. ENT: Nose without bleeding, purulent drainage or septal hematoma. Throat without erythema, tonsillar hypertrophy or exudate. Uvula midline. Airway patent. NECK: Trachea midline. No JVD or lymphadenopathy. Supple, nontender, no meningeal signs. CARDIOVASCULAR: Regular rate and rhythm without murmurs, gallops, or rubs. RESPIRATORY: Clear to auscultation. Breath sounds equal bilaterally. No wheezes , rales, or rhonchi. GASTROINTESTINAL: Abdomen soft, non-tender, nondistended. No hepato-splenomegaly , or palpable masses. No guarding. GENITOURINARY: No CVAT MUSCULOSKELETAL: Extremities without clubbing, cyanosis, or edema. No joint tenderness, effusion, or edema noted. No calf tenderness. Negative Homans sign bilaterally. NEUROLOGICAL: Awake and alert. Cranial nerves II through XII intact. Motor and sensory grossly within normal limits. Five out of 5 muscle strength in all muscle groups. Normal speech. Lab results reviewed: Yes Laboratory Tests Test 02/15/17 02/15/17 02/15/17 12:40 15:42 16:00 White Blood Count 13.5 Red Blood Count 4.44 Hemoglobin 12.9 Hematocrit 38.5 Mean Corpuscular Volume 86.7 Mean Corpuscular Hemoglobin 29.1 Mean Corpuscular Hemoglobin 33.5 Concent Red Cell Distribution Width 17.2 Platelet Count 311 Mean Platelet Volume 6.9 Neutrophils (%) (Auto) 95.6 Lymphocytes (%) (Auto) 1.2 Monocytes (%) (Auto) 1.8 Eosinophils (%) (Auto) 0.1 Basophils (%) (Auto) 1.3 Neutrophils # (Auto) 12.9 Lymphocytes # (Auto) 0.2 Monocytes # (Auto) 0.2 Eosinophils # (Auto) 0.0 Basophils # (Auto) 0.2 CBC Comment DIFF FINAL Differential Comment Sodium Level 122 Potassium Level 4.8 Chloride Level 88 Carbon Dioxide Level 17.9 Anion Gap 16 Blood Urea Nitrogen 28 Creatinine 1.40 Estimat Glomerular Filtration 51 Rate Random Glucose 93 Lactic Acid Level 3.3 1.8 Calcium Level 8.6 Total Bilirubin 0.7 Aspartate Amino Transf 55 (AST/SGOT) Alanine Aminotransferase 45 (ALT/SGPT) Alkaline Phosphatase 112 Total Protein 7.0 Albumin 2.4 Urine Collection Type CLEAN CATCH Urine Color YELLOW Urine Turbidity MOD Urine pH 6.5 Urine Specific [place] 1.006 Urine Protein NEG Urine Glucose (UA) NEG Urine Ketones TRACE Urine Occult Blood SMALL Urine Nitrite NEG Urine Bilirubin NEG Urine Leukocyte Esterase LARGE Urine RBC 10-14 Urine WBC 15-19 Urine Squamous Epithelial 0-5 Cells Urine Bacteria MANY Microscopic Urinalysis Comment CULTURE INDICATED Urine Collection Time 16:00 Date/Time Procedure Status Source Growth 02/15/17 16:00 Urine Culture Received Urine Clean Catch Pending 02/15/17 13:00 Aerobic Blood Culture Received Blood Peripheral Pending 02/15/17 13:00 Anaerobic Blood Culture Received Blood Peripheral Pending Result Diagram: 02/15/17 1240 02/15/17 1240 Personally reviewed images: Yes Imaging Last Impressions Chest X-Ray 02/15/171658 Signed Impressions: Service Date/Time: January 17:09 - CONCLUSION: 1. Moderate left hemidiaphragm elevation. 2. No other acute cardiopulmonary disease identified. Nacho Park MD Abdomen/Pelvis CT 02/15/171658 Signed Impressions: Service Date/Time: January 17:18 - CONCLUSION: 1. Large calculi in the right renal pelvis and proximal ureter. 2. Moderate to severe right hydronephrosis. 3. Nonspecific superior urinary bladder wall thickening. Malignancy is in the differential diagnosis. 4. Multiple bladder calculi. 5. Chronic sigmoid colon diverticular disease. Nacho Park MD Head CT 02/15/17 1337 Signed Impressions: Service Date/Time: January 13:41 - CONCLUSION: 1. Small left maxillary sinus air-fluid level indicating possible acute sinusitis. 2. Mild diffuse atrophy. 3. No acute intracranial findings. Nacho Park MD Lumbar Spine CT 02/15/17 1302 Signed Impressions: Service Date/Time: January 13:08 - CONCLUSION: 1. Acute to subacute compression fracture the T12 vertebral body. No bony retropulsion. No resulting central canal narrowing. 2. Severe right hydronephrosis and large right-sided renal calculi partially visualized. 3. Multilevel degenerative findings. Minimal central canal narrowing L4-5. 4. Left sided L5 pars interarticularis defect. Nacho Park MD Hip and Pelvis X-Ray 02/15/17 1302 Signed Impressions: Service Date/Time: January 13:19 - CONCLUSION: No evidence of fracture. Nacho Park MD Assessment and Plan Assessment and Plan IMPRESSION: Obstructing right renal and proximal ureteral calcului PLAN: #1 Keep pt npo #2 Cysto, right rpg and right ureteral stent placement today #3 Subsequent elective outpatient ESWL: ADDENDUM (11:10am): Discussed care with anesthesia and decided to postpone the urologic procedures as the patient is markedly hyponatremic. Will reschedule the urologic procedures for some time early next week once his overall medical condition is stabilized and has normalization of the serum sodium. Problem Qualifiers (1) UTI (urinary tract infection): Qualified Code: N30.00 - Acute cystitis without hematuria (2) Fracture of thoracic spine: Qualified Code: S22.089A - Closed fracture of twelfth thoracic vertebra, unspecified fracture morphology, initial encounter Arun Herman MD Feb 16, 2017 09:12
--- NOTE | 2017-02-16 09:52 | HHI.PR ---
Subjective Remarks This is a pleasant 66 y/o male with Hypertension, Hyperlipidemia, PAD, COPD, who came to ER with Right hip pain after fall was a Mechanical fall, alcoholism, he has CT compression fracture on T12 Neurosurgery specialist gave recommendations the patient will go today for Cystoscopy and Ureteral stent placement and outpatient ESWL, at this time stable in his bedroom seen in the presence of nurse miss Arias. No nausea, vomit or diarrhea. Objective Vital Signs Date Time Temp Pulse Resp B/P Pulse Ox O2 Delivery O2 Flow Rate FiO2 02/16/17 08:19 18 02/16/17 08:00 97.1 86 16 106/57 93 02/15/17 22:30 83 02/15/17 21:34 97.1 87 18 125/65 96 02/15/17 20:45 86 18 114/64 95 02/15/17 20:30 84 18 109/66 95 Room Air 02/15/17 19:00 97.9 90 18 114/63 95 Room Air 02/15/17 19:00 18 02/15/17 17:36 98.5 93 18 111/54 95 Room Air 02/15/17 16:02 112 18 114/67 96 Room Air 02/15/17 14:13 105 18 107/64 96 Room Air 02/15/17 13:34 113 18 103/63 96 Room Air 02/15/17 12:48 120 18 80/55 96 Room Air 02/15/17 12:47 98.6 122 18 85/68 96 Room Air 02/15/17 12:45 98 Room Air 02/15/17 12:19 98.6 133 18 81/56 96 I/O 02/15/17 02/15/17 02/15/17 02/16/17 02/16/17 02/16/17 07:00 15:00 23:00 07:00 15:00 23:00 Intake Total 1000 ml 1000 ml 830 ml Output Total 525 ml Balance 1000 ml 475 ml 830 ml Intake Oral 240 ml IV Total 1000 ml 1000 ml 590 ml Output Urine Total 525 ml # Voids 2 # Bowel Movements 1 Result Diagram: 02/15/17 1240 02/15/17 1240 Imaging Last Impressions Chest X-Ray 02/15/17 0083 Signed Impressions: Service Date/Time: January 17:09 - CONCLUSION: 1. Moderate left hemidiaphragm elevation. 2. No other acute cardiopulmonary disease identified. Nacoh Park MD Abdomen/Pelvis CT 02/15/17 1659 Signed Impressions: Service Date/Time: January 17:18 - CONCLUSION: 1. Large calculi in the right renal pelvis and proximal ureter. 2. Moderate to severe right hydronephrosis. 3. Nonspecific superior urinary bladder wall thickening. Malignancy is in the differential diagnosis. 4. Multiple bladder calculi. 5. Chronic sigmoid colon diverticular disease. Nacho Park MD Head CT 02/15/17 1337 Signed Impressions: Service Date/Time: January 13:41 - CONCLUSION: 1. Small left maxillary sinus air-fluid level indicating possible acute sinusitis. 2. Mild diffuse atrophy. 3. No acute intracranial findings. Nacho Park MD Lumbar Spine CT 02/15/17 1302 Signed Impressions: Service Date/Time: January 13:08 - CONCLUSION: 1. Acute to subacute compression fracture the T12 vertebral body. No bony retropulsion. No resulting central canal narrowing. 2. Severe right hydronephrosis and large right-sided renal calculi partially visualized. 3. Multilevel degenerative findings. Minimal central canal narrowing L4-5. 4. Left sided L5 pars interarticularis defect. Nacho Park MD Hip and Pelvis X-Ray 02/15/17 1302 Signed Impressions: Service Date/Time: January 13:19 - CONCLUSION: No evidence of fracture. Nacho Park MD Procedures No procedures performed. Other Results Laboratory Tests Test 02/15/17 02/15/17 02/15/17 12:40 15:42 16:00 White Blood Count 13.5 TH/MM3 Red Blood Count 4.44 MIL/MM3 Hemoglobin 12.9 GM/DL Hematocrit 38.5 % Mean Corpuscular Volume 86.7 FL Mean Corpuscular Hemoglobin 29.1 PG Mean Corpuscular Hemoglobin 33.5 % Concent Red Cell Distribution Width 17.2 % Platelet Count 311 TH/MM3 Mean Platelet Volume 6.9 FL Neutrophils (%) (Auto) 95.6 % Lymphocytes (%) (Auto) 1.2 % Monocytes (%) (Auto) 1.8 % Eosinophils (%) (Auto) 0.1 % Basophils (%) (Auto) 1.3 % Neutrophils # (Auto) 12.9 TH/MM3 Lymphocytes # (Auto) 0.2 TH/MM3 Monocytes # (Auto) 0.2 TH/MM3 Eosinophils # (Auto) 0.0 TH/MM3 Basophils # (Auto) 0.2 TH/MM3 CBC Comment DIFF FINAL Differential Comment Sodium Level 122 MEQ/L Potassium Level 4.8 MEQ/L Chloride Level 88 MEQ/L Carbon Dioxide Level 17.9 MEQ/L Anion Gap 16 MEQ/L Blood Urea Nitrogen 28 MG/DL Creatinine 1.40 MG/DL Estimat Glomerular Filtration 51 ML/MIN Rate Random Glucose 93 MG/DL Calcium Level 8.6 MG/DL Total Bilirubin 0.7 MG/DL Aspartate Amino Transf 55 U/L (AST/SGOT) Alanine Aminotransferase 45 U/L (ALT/SGPT) Alkaline Phosphatase 112 U/L Total Protein 7.0 GM/DL Albumin 2.4 GM/DL Lactic Acid Level 1.8 mmol/L Urine Collection Type CLEAN CATCH Urine Color YELLOW Urine Turbidity MOD Urine pH 6.5 Urine Specific [place] 1.006 Urine Protein NEG mg/dL Urine Glucose (UA) NEG mg/dL Urine Ketones TRACE mg/dL Urine Occult Blood SMALL Urine Nitrite NEG Urine Bilirubin NEG Urine Leukocyte Esterase LARGE Urine RBC 10-14 /hpf Urine WBC 15-19 /hpf Urine Squamous Epithelial 0-5 /hpf Cells Urine Bacteria MANY /hpf Microscopic Urinalysis Comment CULTURE INDICATED Urine Collection Time 16:00 Objective Remarks GENERAL: Well-developed patient, in no apparent distress. SKIN: No rashes, ecchymoses or lesions. Cool and dry. HEAD: Atraumatic. Normocephalic. EYES: Pupils equal round and reactive. No injection or drainage. ENT: Nose without bleeding, purulent drainage or septal hematoma. Airway patent. NECK: Trachea midline. No JVD or lymphadenopathy. Supple, nontender, no meningeal signs. CARDIOVASCULAR: Regular rate and rhythm without murmurs, gallops, or rubs. RESPIRATORY: Clear to auscultation. Breath sounds equal bilaterally. No wheezes , rales, or rhonchi. GASTROINTESTINAL: Abdomen soft, non-tender, nondistended. No hepato-splenomegaly , or palpable masses. No guarding. MUSCULOSKELETAL: Extremities without clubbing, cyanosis, or edema. No joint tenderness, effusion, or edema noted. No calf tenderness. NEUROLOGICAL: Awake and alert. Motor and sensory grossly within normal limits. Normal speech. Medications and IVs Current Medications Medications (Trade) Dose Ordered Sig/Evelyne Route Start Time Stop Time Status Last Admin Piperacillin Sod/ Tazobactam Sod 50 ml @ 100 mls/hr Q6H IV 02/16/17 00:00 02/16/17 06:22 (NS 1000 ml Inj) 1,000 ml @ 100 mls/hr Q10H IV 02/15/17 19:07 02/16/17 05:07 (NS Flush) 2 ml UNSCH PRN IV FLUSH 02/15/17 19:15 (NS Flush) 2 ml BID IV FLUSH 02/15/17 21:00 02/16/17 08:14 (Tylenol) 650 mg Q4H PRN PO 02/15/17 19:15 (Zofran Inj) 4 mg Q6H PRN IVP 02/15/17 19:15 (Milk Of Magngonzalez Liq) 30 ml Q12H PRN PO 02/15/17 19:15 (Narcan Inj) 0.4 mg UNSCH PRN IV 02/15/17 19:15 (Aspirin) 325 mg DAILY PO 02/16/17 09:00 (Pravachol) 20 mg HS PO 02/15/17 21:00 02/15/17 20:48 (Morphine Inj) 2 mg Q3H PRN IV PUSH 02/15/17 20:15 02/16/17 08:14 A/P Problem List: (1) UTI (urinary tract infection) ICD Code: N39.0 (2) Fracture of thoracic spine ICD Code: S22.009A (3) HTN (hypertension) ICD Code: I10 (4) HLD (hyperlipidemia) ICD Code: E78.5 Assessment and Plan 1. UTI on Zosyn, Urology specialist following, with Diagnosis of Obstructing right renal and proximal ureteral calculi, Cystoscopy ureteral stent, elective outpatient ESWL. 2. Hypertension controlled. 3. Hyperlipidemia continue Home medicines 4. PAD by history 5. COPD started on Bronchodilator, Mucolytic and incentive spirometry. 6. Nephrolithiasis/Hydronephrosis/acute renal injury CT abdomen showing Large calculi, Hydronephrosis, Urinary bladder thickening, Urology specialist following, 7. Hyponatremia on IV fluids, Improving, today 130 8. Thoracic spine fracture T12, Neurosurgery specialist following, recommended MRI of thoracic spine, PT and OT, 9. Hyperkalemia asked for EKG, Kayexalate. following. Discussed with patient and nurse Miss Arias in the room. Dvt prophylaxes: Scds Discharge Planning Once cleared by specialists. Problem Qualifiers (1) UTI (urinary tract infection): Qualified Code: N30.00 - Acute cystitis without hematuria (2) Fracture of thoracic spine: Qualified Code: S22.089A - Closed fracture of twelfth thoracic vertebra, unspecified fracture morphology, initial encounter Tal Arreaga MD Feb 16, 2017 09:52
[2017-02-16 12:00] VITALS: BP 118/72; PULSE 87; RESP 18; TEMP 97.1; O2SAT 97
[2017-02-16 12:17] LABS: AUTOMATED NEUTROPHIL # 11.3 TH/MM3 (1.8-7.7); BASOPHIL % 0.1 % (0.0-2.0); EOSINOPHIL # 0.1 TH/MM3 (0-0.4); EOSINOPHIL % 0.5 % (0.0-4.0); HEMATOCRIT 32.5 % (39.0-51.0); LYMPH % 4.4 % (9.0-44.0); LYMPHOCYTE # 0.6 TH/MM3 (1.0-4.8); MEAN CELL VOLUME 87.6 FL (80.0-100.0); MEAN CORPUSCULAR HEMOGLOBIN 29.7 PG (27.0-34.0); MEAN CORPUSCULAR HGB CONC 33.8 % (32.0-36.0); MONO % 7.1 % (0.0-8.0); NEUT % 87.9 % (16.0-70.0); PLATELET COUNT 260 TH/MM3 (150-450); RED BLOOD COUNT 3.71 MIL/MM3 (4.50-5.90); RED CELL DISTRIBUTION WIDTH 18.4 % (11.6-17.2); WHITE BLOOD COUNT 12.8 TH/MM3 (4.0-11.0)
[2017-02-16 12:26] LABS: HEMO FLAGS AUTO DIFF
[2017-02-16 12:36] LABS: BICARBONATE 19.4 MEQ/L (21.0-32.0)
[2017-02-16 12:41] LABS: POTASSIUM 6.1 MEQ/L (3.5-5.1)
[2017-02-16 14:28] LABS: BANDS 14 % (0-6); BASOPHILS 1 % (0-2); METAMYELOCYTES 1 % (0-1); NEUTROPHIL # MANUAL DIFF 11.9 TH/MM3 (1.8-7.7); PLATELET ESTIMATE SMEAR NORMAL (NORMAL); PLATELET MORPHOLOGY NORMAL (NORMAL); POLYS (SEG NEUTROPHILS) 78 % (16-70); WBC DIFF SAMPLE 100
[2017-02-16 14:29] LABS: HELMET CELLS OCC (NORMAL); KERATOCYTES OCC (NORMAL); SCAN/DIFF FINAL DIFF MANUAL
[2017-02-16] MEDS ORDERED: SODIUM POLYSTYRENE SULFONATE SUSP 15 GM/60 ML CUP PO ONE (14:45)
[2017-02-16 16:00] VITALS: BP 138/67; PULSE 87; RESP 17; TEMP 97.4; O2SAT 97
[2017-02-16] MEDS: RESP: ALBUTEROL 2.5 MG/IPRATROPIUM 0.5 MG NEB (SCH) NEB ×2 (16:00→19:12)
--- NOTE | 2017-02-16 16:55 | EKG ---
Date Performed: 02/16/2017 Time Performed: 09:56:56 PTAGE: 66 years EKG: Sinus rhythm WITH OCCASIONAL SUPRAVENTRICULAR PREMATURE COMPLEXES LOW QRS VOLTAGE IN EXTREMITY LEADS POSSIBLE RIG HT VENTRICULAR CONDUCTION DELAY SEPTAL MYOCARDIAL INFARCTION , PROBABLY OLD INFERIOR MYOCARDIAL INFAR CTION , PROBABLY OLD ABNORMAL ECG Compared to prior tracing no significant change PREVIOUS TRACING : 02/13/2011 11.37 DOCTOR: Sayra Calderón Interpretating Date/Time 02/16/2017 16:54:55
[2017-02-16 20:00] VITALS: BP 137/65; PULSE 100; PULSE 99; RESP 22; TEMP 97.3; O2SAT 95
[2017-02-16] MEDS: PRAVASTATIN SOD 20 MG TAB PO SCH (20:26)
[2017-02-16] MEDS: guaiFENesin E.R. 600 MG TAB PO SCH (20:27)
[2017-02-17] VITALS (9 sets, daily range): BP systolic 126–156; BP diastolic 59–99; PULSE 78–105; RESP 16–22; TEMP 97.4–100; O2SAT 90–96
[2017-02-17] MEDS: RESP: ALBUTEROL 2.5 MG/IPRATROPIUM 0.5 MG NEB (SCH) NEB ×7 (00:04→23:44)
[2017-02-17] MEDS: PIPERACIL-TAZO 3.375 GM PREMIX 50 ML IV SCH ×5 (06:00→23:49)
[2017-02-17 06:09] LABS: BICARBONATE 19.7 MEQ/L (21.0-32.0)
[2017-02-17] MEDS: SODIUM CHLORIDE 0.9% FLUSH 10 ML FLUSH IV FLUSH SCH ×2 (09:00→20:55)
[2017-02-17] MEDS: guaiFENesin E.R. 600 MG TAB PO SCH ×2 (10:42→20:55)
[2017-02-17] MEDS: MORPHINE SULFATE 4 MG/ML INJ IV PUSH PRN ×3 (10:42→22:09)
[2017-02-17] MEDS: ASPIRIN 325 MG TAB PO SCH (10:43)
--- NOTE | 2017-02-17 11:59 | HHI.NSPN ---
History Chief Complaint: Right hip pain. back pain. Interval History This IS A 66 y/o male with a history of HTN, HLD, PVD and COPD WHO presented to the [place] emergency department with complains of severe right hip pain after suffering a fall on Sunday.Apparetly he tripped over his dog in the bathroom and feel between the toilet and sink. He was unable to get up so he asked his son for help. Once he got up he was able to walk around. He describes the pain as aching and mostly only in his right hip, no associated symptoms noted. Patient denies any fever, chill, nausea, vomiting or dysuria. He has noticed he is urinating less often. CT of the lumbar spine show a compression fracture. A neurosurgical consultation was requested. 02/17/17: Pt resting comfortably in bed. Has low back discomfort but mostly complains of right hip pain. He states he wants to continue with conservative treatment. His back pain is not worsening. No radiation into the chest or abdomen. No weakness in LEs. Review of Systems General: Negative for: fever, chills, insomnia Respiratory: Negative for: shortness of breath, cough, sputum Cardiovascular: Negative for: chest pain Gastrointestinal: Negative for: nausea, vomitting, diarrhea, constipation Exam Results Vital Signs Date Time Temp Pulse Resp B/P Pulse Ox O2 Delivery O2 Flow Rate FiO2 02/17/17 08:00 98.3 78 19 137/66 95 02/15/17 20:30 Room Air Intake and Output 02/16/17 02/16/17 02/17/17 08:00 16:00 00:00 Intake Total 830 ml 1445 ml 801 ml Balance 830 ml 1445 ml 801 ml Physical Examination Resp: CTA bilaterally Heart: NSR no murmurs Abd: Soft positive bs Skin: No cyanosis or erythema Muscle: Moves all 4 extremities. Pt states he is ambulating. Neuro: Pt awake and alert. Follows commands well. Speech clear and appropriate. Sensation intact in LEs. Lab, Micro, Other Results Last Impressions Chest X-Ray 02/15/17 2644 Signed Impressions: Service Date/Time: January 17:09 - CONCLUSION: 1. Moderate left hemidiaphragm elevation. 2. No other acute cardiopulmonary disease identified. Nacho Park MD Abdomen/Pelvis CT 02/15/17 1659 Signed Impressions: Service Date/Time: January 17:18 - CONCLUSION: 1. Large calculi in the right renal pelvis and proximal ureter. 2. Moderate to severe right hydronephrosis. 3. Nonspecific superior urinary bladder wall thickening. Malignancy is in the differential diagnosis. 4. Multiple bladder calculi. 5. Chronic sigmoid colon diverticular disease. Nacho Park MD Head CT 02/15/17 1337 Signed Impressions: Service Date/Time: January 13:41 - CONCLUSION: 1. Small left maxillary sinus air-fluid level indicating possible acute sinusitis. 2. Mild diffuse atrophy. 3. No acute intracranial findings. Nacho Park MD Lumbar Spine CT 02/15/17 1302 Signed Impressions: Service Date/Time: January 13:08 - CONCLUSION: 1. Acute to subacute compression fracture the T12 vertebral body. No bony retropulsion. No resulting central canal narrowing. 2. Severe right hydronephrosis and large right-sided renal calculi partially visualized. 3. Multilevel degenerative findings. Minimal central canal narrowing L4-5. 4. Left sided L5 pars interarticularis defect. Nacho Park MD Hip and Pelvis X-Ray 02/15/17 1302 Signed Impressions: Service Date/Time: January 13:19 - CONCLUSION: No evidence of fracture. Nacho Park MD Laboratory Tests Test 02/16/17 02/17/17 12:02 04:37 White Blood Count 12.8 TH/MM3 Red Blood Count 3.71 MIL/MM3 Hemoglobin 11.0 GM/DL Hematocrit 32.5 % Mean Corpuscular Volume 87.6 FL Mean Corpuscular Hemoglobin 29.7 PG Mean Corpuscular Hemoglobin 33.8 % Concent Red Cell Distribution Width 18.4 % Platelet Count 260 TH/MM3 Mean Platelet Volume 7.5 FL Neutrophils (%) (Auto) 87.9 % Lymphocytes (%) (Auto) 4.4 % Monocytes (%) (Auto) 7.1 % Eosinophils (%) (Auto) 0.5 % Basophils (%) (Auto) 0.1 % Neutrophils # (Auto) 11.3 TH/MM3 Lymphocytes # (Auto) 0.6 TH/MM3 Monocytes # (Auto) 0.9 TH/MM3 Eosinophils # (Auto) 0.1 TH/MM3 Basophils # (Auto) 0.0 TH/MM3 CBC Comment AUTO DIFF Differential Total Cells 100 Counted Neutrophils % (Manual) 78 % Band Neutrophils % 14 % Lymphocytes % 3 % Monocytes % 3 % Basophils % 1 % Neutrophils # (Manual) 11.9 TH/MM3 Metamyelocytes 1 % Differential Comment FINAL DIFF MANUAL Platelet Estimate NORMAL Platelet Morphology Comment NORMAL Helmet Cells OCC Keratocytes OCC Sodium Level 130 MEQ/L 131 MEQ/L Potassium Level 6.1 MEQ/L 3.0 MEQ/L Chloride Level 100 MEQ/L 100 MEQ/L Carbon Dioxide Level 19.4 MEQ/L 19.7 MEQ/L Anion Gap 11 MEQ/L 11 MEQ/L Blood Urea Nitrogen 21 MG/DL 14 MG/DL Creatinine 1.09 MG/DL 0.99 MG/DL Estimat Glomerular Filtration 67 ML/MIN 75 ML/MIN Rate Random Glucose 105 MG/DL 101 MG/DL Calcium Level 7.3 MG/DL 7.9 MG/DL Protein Corrected Calcium 8.0 MG/DL Total Protein 5.8 GM/DL 02/16/17 02/16/17 02/17/17 15:00 23:00 07:00 Intake Total 1445 ml 801 ml 736 ml Balance 1445 ml 801 ml 736 ml Intake Oral 960 ml 240 ml IV Total 485 ml 561 ml 736 ml # Voids 4 1 # Bowel Movements 2 0 Medical Decision Making Impression and Plan A: 66 y/o M with T12 compression fracture P: Pt has elected conservative management Continue with PT Continue with medical management Maxwell Watson Feb 17, 2017 11:59
--- NOTE | 2017-02-17 13:47 | HHI.PR ---
Subjective Remarks This is a pleasant 66 y/o male with Hypertension, Hyperlipidemia, PAD, COPD, who came to ER with Right hip pain after fall was a Mechanical fall, alcoholism, he has CT compression fracture on T12 Neurosurgery specialist gave recommendations the patient will go today for Cystoscopy and Ureteral stent placement and outpatient ESWL. 02/17 Seen in his bedroom in the presence of his , Mrs. Sim appreciated, he has Hematuria small amount of blood when voiding, all questions explained, discussed with Nurse. No nausea, vomit or diarrhea. Objective Vital Signs Date Time Temp Pulse Resp B/P Pulse Ox O2 Delivery O2 Flow Rate FiO2 02/17/17 12:00 98.2 92 18 131/99 95 02/17/17 08:00 98.3 78 19 137/66 95 02/17/17 04:00 97.4 87 22 149/77 96 02/17/17 00:00 100.0 97 22 126/60 95 02/16/17 20:00 100 02/16/17 20:00 97.3 99 22 137/65 95 02/16/17 18:33 17 02/16/17 16:00 97.4 87 17 138/67 97 I/O 02/16/17 02/16/17 02/16/17 02/17/17 02/17/17 02/17/17 07:00 15:00 23:00 07:00 15:00 23:00 Intake Total 830 ml 1445 ml 801 ml 736 ml 120 ml Output Total 0 ml Balance 830 ml 1445 ml 801 ml 736 ml 120 ml Intake Oral 240 ml 960 ml 240 ml 120 ml IV Total 590 ml 485 ml 561 ml 736 ml Output Urine Total 0 ml # Voids 4 1 # Bowel Movements 2 0 Result Diagram: 02/16/17 1202 02/17/17 0437 Imaging Last Impressions Chest X-Ray 02/15/171658 Signed Impressions: Service Date/Time: January 17:09 - CONCLUSION: 1. Moderate left hemidiaphragm elevation. 2. No other acute cardiopulmonary disease identified. Nacho Park MD Abdomen/Pelvis CT 02/15/171658 Signed Impressions: Service Date/Time: January 17:18 - CONCLUSION: 1. Large calculi in the right renal pelvis and proximal ureter. 2. Moderate to severe right hydronephrosis. 3. Nonspecific superior urinary bladder wall thickening. Malignancy is in the differential diagnosis. 4. Multiple bladder calculi. 5. Chronic sigmoid colon diverticular disease. Nacho Park MD Head CT 02/15/17 1337 Signed Impressions: Service Date/Time: January 13:41 - CONCLUSION: 1. Small left maxillary sinus air-fluid level indicating possible acute sinusitis. 2. Mild diffuse atrophy. 3. No acute intracranial findings. Nacho Park MD Lumbar Spine CT 02/15/17 1302 Signed Impressions: Service Date/Time: January 13:08 - CONCLUSION: 1. Acute to subacute compression fracture the T12 vertebral body. No bony retropulsion. No resulting central canal narrowing. 2. Severe right hydronephrosis and large right-sided renal calculi partially visualized. 3. Multilevel degenerative findings. Minimal central canal narrowing L4-5. 4. Left sided L5 pars interarticularis defect. Nacho Park MD Hip and Pelvis X-Ray 02/15/17 1302 Signed Impressions: Service Date/Time: January 13:19 - CONCLUSION: No evidence of fracture. Nacho Park MD Procedures No procedures performed. Other Results Laboratory Tests Test 02/15/17 02/15/17 02/15/17 02/16/17 12:40 15:42 16:00 12:02 Total Bilirubin 0.7 MG/DL Aspartate Amino Transf 55 U/L (AST/SGOT) Alanine Aminotransferase 45 U/L (ALT/SGPT) Alkaline Phosphatase 112 U/L Albumin 2.4 GM/DL Lactic Acid Level 1.8 mmol/L Urine Collection Type CLEAN CATCH Urine Color YELLOW Urine Turbidity MOD Urine pH 6.5 Urine Specific [place] 1.006 Urine Protein NEG mg/dL Urine Glucose (UA) NEG mg/dL Urine Ketones TRACE mg/dL Urine Occult Blood SMALL Urine Nitrite NEG Urine Bilirubin NEG Urine Leukocyte Esterase LARGE Urine RBC 10-14 /hpf Urine WBC 15-19 /hpf Urine Squamous Epithelial 0-5 /hpf Cells Urine Bacteria MANY /hpf Microscopic Urinalysis Comment CULTURE INDICATED Urine Collection Time 16:00 White Blood Count 12.8 TH/MM3 Red Blood Count 3.71 MIL/MM3 Hemoglobin 11.0 GM/DL Hematocrit 32.5 % Mean Corpuscular Volume 87.6 FL Mean Corpuscular Hemoglobin 29.7 PG Mean Corpuscular Hemoglobin 33.8 % Concent Red Cell Distribution Width 18.4 % Platelet Count 260 TH/MM3 Mean Platelet Volume 7.5 FL Neutrophils (%) (Auto) 87.9 % Lymphocytes (%) (Auto) 4.4 % Monocytes (%) (Auto) 7.1 % Eosinophils (%) (Auto) 0.5 % Basophils (%) (Auto) 0.1 % Neutrophils # (Auto) 11.3 TH/MM3 Lymphocytes # (Auto) 0.6 TH/MM3 Monocytes # (Auto) 0.9 TH/MM3 Eosinophils # (Auto) 0.1 TH/MM3 Basophils # (Auto) 0.0 TH/MM3 CBC Comment AUTO DIFF Differential Total Cells 100 Counted Neutrophils % (Manual) 78 % Band Neutrophils % 14 % Lymphocytes % 3 % Monocytes % 3 % Basophils % 1 % Neutrophils # (Manual) 11.9 TH/MM3 Metamyelocytes 1 % Differential Comment FINAL DIFF MANUAL Platelet Estimate NORMAL Platelet Morphology Comment NORMAL Helmet Cells OCC Keratocytes OCC Protein Corrected Calcium 8.0 MG/DL Total Protein 5.8 GM/DL Test 02/17/17 04:37 Sodium Level 131 MEQ/L Potassium Level 3.0 MEQ/L Chloride Level 100 MEQ/L Carbon Dioxide Level 19.7 MEQ/L Anion Gap 11 MEQ/L Blood Urea Nitrogen 14 MG/DL Creatinine 0.99 MG/DL Estimat Glomerular Filtration 75 ML/MIN Rate Random Glucose 101 MG/DL Calcium Level 7.9 MG/DL Objective Remarks GENERAL: Well-developed patient, in no apparent distress. SKIN: No rashes, ecchymoses or lesions. Cool and dry. HEAD: Atraumatic. Normocephalic. EYES: Pupils equal round and reactive. No injection or drainage. ENT: Nose without bleeding, purulent drainage or septal hematoma. Airway patent. NECK: Trachea midline. No JVD or lymphadenopathy. Supple, nontender, no meningeal signs. CARDIOVASCULAR: Regular rate and rhythm without murmurs, gallops, or rubs. RESPIRATORY: Clear to auscultation. Breath sounds equal bilaterally. No wheezes , rales, or rhonchi. GASTROINTESTINAL: Abdomen soft, non-tender, nondistended. No hepato-splenomegaly , or palpable masses. No guarding. MUSCULOSKELETAL: Extremities without clubbing, cyanosis, or edema. No joint tenderness, effusion, or edema noted. No calf tenderness. NEUROLOGICAL: Awake and alert. Motor and sensory grossly within normal limits. Normal speech. Medications and IVs Current Medications Medications (Trade) Dose Ordered Sig/Evelyne Route Start Time Stop Time Status Last Admin Piperacillin Sod/ Tazobactam Sod 50 ml @ 100 mls/hr Q6H IV 02/16/17 00:00 02/16/17 23:31 (NS 1000 ml Inj) 1,000 ml @ 100 mls/hr Q10H IV 02/15/17 19:07 02/16/17 15:00 (NS Flush) 2 ml UNSCH PRN IV FLUSH 02/15/17 19:15 (NS Flush) 2 ml BID IV FLUSH 02/15/17 21:00 02/16/17 20:26 (Tylenol) 650 mg Q4H PRN PO 02/15/17 19:15 02/17/17 01:14 (Zofran Inj) 4 mg Q6H PRN IVP 02/15/17 19:15 (Milk Of Anna Liq) 30 ml Q12H PRN PO 02/15/17 19:15 (Narcan Inj) 0.4 mg UNSCH PRN IV 02/15/17 19:15 (Aspirin) 325 mg DAILY PO 02/16/17 09:00 02/17/17 10:43 (Pravachol) 20 mg HS PO 02/15/17 21:00 02/16/17 20:26 (Morphine Inj) 2 mg Q3H PRN IV PUSH 02/15/17 20:15 02/17/17 10:42 (Mucinex Er) 600 mg BID PO 02/16/17 21:00 02/17/17 10:42 A/P Problem List: (1) UTI (urinary tract infection) ICD Code: N39.0 (2) Fracture of thoracic spine ICD Code: S22.009A (3) HTN (hypertension) ICD Code: I10 (4) HLD (hyperlipidemia) ICD Code: E78.5 Assessment and Plan 1. UTI on Zosyn, Urology specialist following, with Diagnosis of Obstructing right renal and proximal ureteral calculi, Cystoscopy ureteral stent, elective outpatient ESWL. not done yesterday due to Hyponatremia today 131. 2. Hypertension controlled. 3. Hyperlipidemia continue Home medicines 4. PAD by history 5. COPD started on Bronchodilator, Mucolytic and incentive spirometry. 6. Nephrolithiasis/Hydronephrosis/acute renal injury CT abdomen showing Large calculi, Hydronephrosis, Urinary bladder thickening, Urology specialist following. 7. Hyponatremia on IV fluids, Improving, today 131, this could be [place] his states he drinks Beer. 8. Thoracic spine fracture T12, Neurosurgery specialist following, recommended MRI of thoracic spine, PT and OT, 9. Hyperkalemia treated yesterday with Kayexalate and today Potassium level 3 asked for new level of potassium and will follow and replaced as needed. 10. leukocytosis Improving. follow in am tomorrow. Discussed with patient and nurse Miss Sim also with his Mrs. Sim in the room all questions answered to the best of my abilities. Follow in am with BMP, CBC, magnesium and Phosphorus. Dvt prophylaxes: SCDs. Discharge Planning Once cleared by specialists. Problem Qualifiers (1) UTI (urinary tract infection): Qualified Code: N30.00 - Acute cystitis without hematuria (2) Fracture of thoracic spine: Qualified Code: S22.089A - Closed fracture of twelfth thoracic vertebra, unspecified fracture morphology, initial encounter Tal Arreaga MD Feb 17, 2017 13:46
[2017-02-17] MEDS: PANTOPRAZOLE SOD 40 MG DELAYED RELEASE TAB PO SCH (16:38)
[2017-02-17] MEDS: SUCRALFATE 1 GM TAB PO SCH ×2 (16:38→20:55)
[2017-02-17] MEDS: PRAVASTATIN SOD 20 MG TAB PO SCH (20:55)
[2017-02-17] MEDS: SODIUM CHLOR 0.9% 1000 ML INJ 1,000 ML IV SCH (21:07)
[2017-02-18] VITALS (9 sets, daily range): BP systolic 124–149; BP diastolic 65–73; PULSE 80–105; RESP 17–19; TEMP 97.7–99; O2SAT 91–96
[2017-02-18] MEDS: SODIUM CHLOR 0.9% 1000 ML INJ 1,000 ML IV SCH (02:22)
[2017-02-18] MEDS: MORPHINE SULFATE 4 MG/ML INJ IV PUSH PRN ×7 (02:22→23:54)
[2017-02-18] MEDS: RESP: ALBUTEROL 2.5 MG/IPRATROPIUM 0.5 MG NEB (SCH) NEB ×5 (04:06→19:26)
[2017-02-18 05:16] LABS: AUTOMATED NEUTROPHIL # 7.4 TH/MM3 (1.8-7.7); BASOPHIL # 0.1 TH/MM3 (0-0.2); BASOPHIL % 0.5 % (0.0-2.0); EOSINOPHIL # 0.1 TH/MM3 (0-0.4); EOSINOPHIL % 1.1 % (0.0-4.0); HEMATOCRIT 28.3 % (39.0-51.0); LYMPH % 7.8 % (9.0-44.0); LYMPHOCYTE # 0.7 TH/MM3 (1.0-4.8); MEAN CELL VOLUME 87.4 FL (80.0-100.0); MEAN CORPUSCULAR HEMOGLOBIN 28.6 PG (27.0-34.0); MEAN CORPUSCULAR HGB CONC 32.8 % (32.0-36.0); MONO % 10.8 % (0.0-8.0); NEUT % 79.8 % (16.0-70.0); PLATELET COUNT 246 TH/MM3 (150-450); RED BLOOD COUNT 3.24 MIL/MM3 (4.50-5.90); RED CELL DISTRIBUTION WIDTH 17.8 % (11.6-17.2); WHITE BLOOD COUNT 9.2 TH/MM3 (4.0-11.0)
[2017-02-18 05:27] LABS: HEMO FLAGS AUTO DIFF
[2017-02-18] MEDS: PIPERACIL-TAZO 3.375 GM PREMIX 50 ML IV SCH ×3 (05:29→23:53)
[2017-02-18] MEDS: SUCRALFATE 1 GM TAB PO SCH ×4 (05:29→20:09)
[2017-02-18 06:01] LABS: BASOPHILS 1 % (0-2); EOSINOPHILS 2 % (0-4); NEUTROPHIL # MANUAL DIFF 7.5 TH/MM3 (1.8-7.7); POLYS (SEG NEUTROPHILS) 80 % (16-70); PROMYELOCYTES 1 % (0-0); WBC DIFF SAMPLE 100
[2017-02-18 06:02] LABS: OVALOCYTES 1+ (NORMAL); PLATELET ESTIMATE SMEAR NORMAL (NORMAL); PLATELET MORPHOLOGY NORMAL (NORMAL); SCAN/DIFF FINAL DIFF MANUAL; TARGET CELLS 1+ (NORMAL)
[2017-02-18 06:22] LABS: BICARBONATE 22.2 MEQ/L (21.0-32.0); MAGNESIUM 1.8 MG/DL (1.5-2.5)
[2017-02-18 06:53] LABS: CALCIUM-PROTEIN CORRECTED 8.5 MG/DL (8.5-10.1)
[2017-02-18] MEDS: SODIUM CHLORIDE 0.9% FLUSH 10 ML FLUSH IV FLUSH SCH ×2 (09:00→20:09)
--- NOTE | 2017-02-18 09:21 | HHI.PR ---
Subjective Remarks This is a pleasant 66 y/o male with Hypertension, Hyperlipidemia, PAD, COPD, who came to ER with Right hip pain after fall was a Mechanical fall, alcoholism, he has CT compression fracture on T12 Neurosurgery specialist gave recommendations the patient will go today for Cystoscopy and Ureteral stent placement and outpatient ESWL. 02/17 Seen in his bedroom in the presence of his , Mrs. Sim appreciated, he has Hematuria small amount of blood when voiding, all questions explained. 02/18 stable in his bedroom, discussed with nurse Miss Vergara elected conservative management for T12 Fracture, he will have Cystoscopy for tomorrow. No Nausea, vomit or diarrhea. Objective Vital Signs Date Time Temp Pulse Resp B/P Pulse Ox O2 Delivery O2 Flow Rate FiO2 02/18/17 08:00 98.6 104 19 145/73 93 02/18/17 07:48 95 Nasal Cannula 2.00 02/18/17 04:16 98.8 80 18 124/65 91 02/18/17 04:07 91 Nasal Cannula 2.00 02/17/17 23:56 99.1 80 16 130/59 94 02/17/17 23:47 90 Nasal Cannula 3.00 02/17/17 20:19 99.0 78 21 156/70 94 02/17/17 20:00 105 02/17/17 20:00 91 Nasal Cannula 2.00 02/17/17 16:00 97.7 85 19 133/85 95 02/17/17 12:00 98.2 92 18 131/99 95 I/O 02/17/17 02/17/17 02/17/17 02/18/17 02/18/17 02/18/17 07:00 15:00 23:00 07:00 15:00 23:00 Intake Total 736 ml 120 ml 1010 ml 1058 ml Output Total 0 ml 800 ml 500 ml Balance 736 ml 120 ml 210 ml 558 ml Intake Oral 120 ml 450 ml 380 ml IV Total 736 ml 560 ml 678 ml Output Urine Total 0 ml 800 ml 500 ml Result Diagram: 02/18/17 0415 02/18/17 0415 Imaging Last Impressions Chest X-Ray 02/15/17 1828 Signed Impressions: Service Date/Time: January 17:09 - CONCLUSION: 1. Moderate left hemidiaphragm elevation. 2. No other acute cardiopulmonary disease identified. Nacho Park MD Abdomen/Pelvis CT 02/15/17 1659 Signed Impressions: Service Date/Time: January 17:18 - CONCLUSION: 1. Large calculi in the right renal pelvis and proximal ureter. 2. Moderate to severe right hydronephrosis. 3. Nonspecific superior urinary bladder wall thickening. Malignancy is in the differential diagnosis. 4. Multiple bladder calculi. 5. Chronic sigmoid colon diverticular disease. Nacho Park MD Head CT 02/15/17 1337 Signed Impressions: Service Date/Time: January 13:41 - CONCLUSION: 1. Small left maxillary sinus air-fluid level indicating possible acute sinusitis. 2. Mild diffuse atrophy. 3. No acute intracranial findings. Nacho Park MD Lumbar Spine CT 02/15/17 1302 Signed Impressions: Service Date/Time: January 13:08 - CONCLUSION: 1. Acute to subacute compression fracture the T12 vertebral body. No bony retropulsion. No resulting central canal narrowing. 2. Severe right hydronephrosis and large right-sided renal calculi partially visualized. 3. Multilevel degenerative findings. Minimal central canal narrowing L4-5. 4. Left sided L5 pars interarticularis defect. Nacho Park MD Hip and Pelvis X-Ray 02/15/17 1302 Signed Impressions: Service Date/Time: January 13:19 - CONCLUSION: No evidence of fracture. Nacho Park MD Procedures No procedures performed. Other Results Laboratory Tests Test 02/15/17 02/15/17 02/15/17 02/16/17 12:40 15:42 16:00 12:02 Total Bilirubin 0.7 MG/DL Aspartate Amino Transf 55 U/L (AST/SGOT) Alanine Aminotransferase 45 U/L (ALT/SGPT) Alkaline Phosphatase 112 U/L Albumin 2.4 GM/DL Lactic Acid Level 1.8 mmol/L Urine Collection Type CLEAN CATCH Urine Color YELLOW Urine Turbidity MOD Urine pH 6.5 Urine Specific [place] 1.006 Urine Protein NEG mg/dL Urine Glucose (UA) NEG mg/dL Urine Ketones TRACE mg/dL Urine Occult Blood SMALL Urine Nitrite NEG Urine Bilirubin NEG Urine Leukocyte Esterase LARGE Urine RBC 10-14 /hpf Urine WBC 15-19 /hpf Urine Squamous Epithelial 0-5 /hpf Cells Urine Bacteria MANY /hpf Microscopic Urinalysis Comment CULTURE INDICATED Urine Collection Time 16:00 Band Neutrophils % 14 % Metamyelocytes 1 % Helmet Cells OCC Keratocytes OCC Test 02/18/17 04:15 White Blood Count 9.2 TH/MM3 Red Blood Count 3.24 MIL/MM3 Hemoglobin 9.3 GM/DL Hematocrit 28.3 % Mean Corpuscular Volume 87.4 FL Mean Corpuscular Hemoglobin 28.6 PG Mean Corpuscular Hemoglobin 32.8 % Concent Red Cell Distribution Width 17.8 % Platelet Count 246 TH/MM3 Mean Platelet Volume 7.1 FL Neutrophils (%) (Auto) 79.8 % Lymphocytes (%) (Auto) 7.8 % Monocytes (%) (Auto) 10.8 % Eosinophils (%) (Auto) 1.1 % Basophils (%) (Auto) 0.5 % Neutrophils # (Auto) 7.4 TH/MM3 Lymphocytes # (Auto) 0.7 TH/MM3 Monocytes # (Auto) 1.0 TH/MM3 Eosinophils # (Auto) 0.1 TH/MM3 Basophils # (Auto) 0.1 TH/MM3 CBC Comment AUTO DIFF Differential Total Cells 100 Counted Neutrophils % (Manual) 80 % Lymphocytes % 13 % Monocytes % 3 % Eosinophils % 2 % Basophils % 1 % Neutrophils # (Manual) 7.5 TH/MM3 Promyelocytes 1 % Differential Comment FINAL DIFF MANUAL Platelet Estimate NORMAL Platelet Morphology Comment NORMAL Target Cells 1+ Ovalocytes 1+ Sodium Level 132 MEQ/L Potassium Level 3.0 MEQ/L Chloride Level 99 MEQ/L Carbon Dioxide Level 22.2 MEQ/L Anion Gap 11 MEQ/L Blood Urea Nitrogen 9 MG/DL Creatinine 0.93 MG/DL Estimat Glomerular Filtration 81 ML/MIN Rate Random Glucose 81 MG/DL Calcium Level 7.3 MG/DL Protein Corrected Calcium 8.5 MG/DL Phosphorus Level 3.0 MG/DL Magnesium Level 1.8 MG/DL Total Protein 5.0 GM/DL Objective Remarks GENERAL: Well-developed patient, in no apparent distress. SKIN: No rashes, ecchymoses or lesions. Cool and dry. HEAD: Atraumatic. Normocephalic. EYES: Pupils equal round and reactive. No injection or drainage. ENT: Nose without bleeding, purulent drainage or septal hematoma. Airway patent. NECK: Trachea midline. No JVD or lymphadenopathy. Supple, nontender, no meningeal signs. CARDIOVASCULAR: Regular rate and rhythm without murmurs, gallops, or rubs. RESPIRATORY: Clear to auscultation. Breath sounds equal bilaterally. No wheezes , rales, or rhonchi. GASTROINTESTINAL: Abdomen soft, non-tender, nondistended. No hepato-splenomegaly , or palpable masses. No guarding. MUSCULOSKELETAL: Extremities without clubbing, cyanosis, or edema. No joint tenderness, effusion, or edema noted. No calf tenderness. NEUROLOGICAL: Awake and alert. Motor and sensory grossly within normal limits. Normal speech. Medications and IVs Current Medications Medications (Trade) Dose Ordered Sig/Evelyne Route Start Time Stop Time Status Last Admin Piperacillin Sod/ Tazobactam Sod 50 ml @ 100 mls/hr Q6H IV 02/16/17 00:00 02/18/17 05:29 (NS 1000 ml Inj) 1,000 ml @ 100 mls/hr Q10H IV 02/15/17 19:07 02/18/17 02:22 (NS Flush) 2 ml UNSCH PRN IV FLUSH 02/15/17 19:15 (NS Flush) 2 ml BID IV FLUSH 02/15/17 21:00 02/17/17 20:55 (Tylenol) 650 mg Q4H PRN PO 02/15/17 19:15 02/17/17 01:14 (Zofran Inj) 4 mg Q6H PRN IVP 02/15/17 19:15 (Milk Of Magnesia Liq) 30 ml Q12H PRN PO 02/15/17 19:15 (Narcan Inj) 0.4 mg UNSCH PRN IV 02/15/17 19:15 (Aspirin) 325 mg DAILY PO 02/16/17 09:00 02/17/17 10:43 (Pravachol) 20 mg HS PO 02/15/17 21:00 02/17/17 20:55 (Morphine Inj) 2 mg Q3H PRN IV PUSH 02/15/17 20:15 02/18/17 05:29 (Mucinex Er) 600 mg BID PO 02/16/17 21:00 02/17/17 20:55 (Protonix) 40 mg DAILY PO 02/17/17 14:45 02/17/17 16:38 (Carafate) 1 gm ACHS PO 02/17/17 16:00 02/18/17 05:29 A/P Problem List: (1) UTI (urinary tract infection) ICD Code: N39.0 (2) Fracture of thoracic spine ICD Code: S22.009A (3) HTN (hypertension) ICD Code: I10 (4) HLD (hyperlipidemia) ICD Code: E78.5 Assessment and Plan 1. UTI on Zosyn, Urology specialist following, with Diagnosis of Obstructing right renal and proximal ureteral calculi, Cystoscopy ureteral stent, elective outpatient ESWL. not done yesterday due to Hyponatremia today 131. afebrile. 2. Hypertension controlled. 3. Hyperlipidemia continue Home medicines 4. PAD by history 5. COPD started on Bronchodilator, Mucolytic and incentive spirometry. 6. Nephrolithiasis/Hydronephrosis/acute renal injury CT abdomen showing Large calculi, Hydronephrosis, Urinary bladder thickening, recommended for cystoscopy tomorrow. 7. Hyponatremia on IV fluids, Improving, today 132, this could be [place] his states he drinks Beer. 8. Thoracic spine fracture T12, seen by Neurosurgery recommended conservative management. 9. Hypokalemia and Hypomagnesemia replaced. 10. leukocytosis Improving. follow in am tomorrow. Discussed with patient and nurse he will have Cystoscopy tomorrow. Dvt prophylaxes: SCDs. Discharge Planning Expected after Cystoscopy performed. Problem Qualifiers (1) UTI (urinary tract infection): Qualified Code: N30.00 - Acute cystitis without hematuria (2) Fracture of thoracic spine: Qualified Code: S22.089A - Closed fracture of twelfth thoracic vertebra, unspecified fracture morphology, initial encounter Tal Arreaga MD Feb 18, 2017 09:21 Qualified Code: S22.089A - Closed fracture of twelfth thoracic vertebra, unspecified fracture morphology, initial encounter Tal Arreaga MD Feb 18, 2017 09:21
[2017-02-18] MEDS ORDERED: POTASSIUM CHLORIDE 20 MEQ CONTROLLED RELEASE TAB PO ONE (10:00)
[2017-02-18] MEDS: ASPIRIN 325 MG TAB PO SCH (10:16)
[2017-02-18] MEDS: PANTOPRAZOLE SOD 40 MG DELAYED RELEASE TAB PO SCH (10:17)
[2017-02-18] MEDS: guaiFENesin E.R. 600 MG TAB PO SCH ×2 (10:17→20:09)
[2017-02-18] MEDS: MAGNESIUM SULFATE 1 GM PREMIX 100 ML IV SCH ×2 (10:18→12:29)
[2017-02-18] MEDS: PRAVASTATIN SOD 20 MG TAB PO SCH (20:09)
--- NOTE | 2017-02-18 21:35 | EKG ---
Date Performed: 02/16/2017 Time Performed: 14:57:06 PTAGE: 66 years EKG: Sinus rhythm WITH OCCASIONAL SUPRAVENTRICULAR PREMATURE COMPLEXES LOW QRS VOLTAGE IN EXTREMITY LEADS POSSIBLE RIG HT VENTRICULAR CONDUCTION DELAY LEFT ANTERIOR FASCICULAR BLOCK PROBABLE SEPTAL MYOCARDIAL INFARCTION , PROBABLY OLD INFERIOR MYOCARDIAL INFARCTION , PROBABLY OLD ABNORMAL ECG PREVIOUS TRACING : 02/16/2017 09.56 DOCTOR: Timothy Lynch Interpretating Date/Time 02/18/2017 21:32:09
[2017-02-19] VITALS (9 sets, daily range): BP systolic 133–159; BP diastolic 62–88; PULSE 90–122; RESP 16–21; TEMP 95.2–98.3; O2SAT 90–97
[2017-02-19] MEDS: RESP: ALBUTEROL 2.5 MG/IPRATROPIUM 0.5 MG NEB (SCH) NEB ×6 (00:19→19:18)
[2017-02-19] MEDS: SODIUM CHLOR 0.9% 1000 ML INJ 1,000 ML IV SCH ×3 (02:31→23:07)
[2017-02-19] MEDS: PIPERACIL-TAZO 3.375 GM PREMIX 50 ML IV SCH ×5 (05:25→23:43)
[2017-02-19] MEDS: MORPHINE SULFATE 4 MG/ML INJ IV PUSH PRN ×4 (05:26→20:54)
[2017-02-19] MEDS: SUCRALFATE 1 GM TAB PO SCH ×4 (06:02→20:49)
[2017-02-19] MEDS: SODIUM CHLORIDE 0.9% FLUSH 10 ML FLUSH IV FLUSH SCH ×2 (08:44→20:48)
[2017-02-19] MEDS: PANTOPRAZOLE SOD 40 MG DELAYED RELEASE TAB PO SCH (08:47)
[2017-02-19] MEDS: guaiFENesin E.R. 600 MG TAB PO SCH ×2 (08:47→20:49)
[2017-02-19] MEDS: ASPIRIN 325 MG TAB PO SCH (08:48)
[2017-02-19] MEDS ORDERED: ONDANSETRON HCL 4 MG/2 ML VIAL IV PUSH ONE (12:00)
[2017-02-19] MEDS ORDERED: PROPOFOL 200 MG/20 ML AMP IV ONE (12:00)
[2017-02-19] MEDS ORDERED: MIDAZOLAM HCL 2 MG/2 ML VIAL ONE (12:54)
[2017-02-19] MEDS ORDERED: ACETAMINOPHEN 1000 MG/100 ML VIAL IV ONE (12:54)
[2017-02-19] MEDS ORDERED: FAMOTIDINE 20 MG/2 ML VIAL ONE (12:54)
[2017-02-19] MEDS ORDERED: IOHEXOL 350 MG/ML 10 ML VIAL (for RAD DIAG) ONE (13:34)
--- NOTE | 2017-02-19 14:04 | PD.OP ---
Operative Report Date of Surgery: Feb 19, 2017 Preoperative Diagnosis: (1) Renal calculus, right (2) Ureteral calculus, right Postoperative Diagnosis: (1) Renal calculus, right (2) Ureteral calculus, right Procedure: Cystoscopy, right retrograde pyelogram and right ureteral stent placement Anesthesia: General Surgeon: Arun Herman Canoe Maker(s): None Operation and Findings: Indication for procedure: Case of a pleasant 66 year old gentleman with right hydronephrosis secondary to a large right renal and proximal ureteral calculus. Patient presents now for cystoscopy, right retrograde pyelogram and right ureteral stent placement. Procedure in detail: Patient was brought to the operating suite and placed supine on the cystoscopy table. He was then placed under general anesthesia. He was then placed in the dorsal lithotomy position and prepped and draped in normal sterile fashion. After an appropriate timeout was undertaken and proceeded with cystoscopic evaluation utilizing the rigid cystoscope with a 20 Greek sheath and 30 lens. The urethra was patent without stricture formation , the prostatic urethra was nonobstructing for the passive cystoscope within the urinary bladder revealed both right and left ureteral orifice used to be in correct anatomic position. There was no drainage noted on the right and there was clear reflux noted on the left side. I then proceeded to advance a 6 Greek open-ended ureteral catheter several centimeters up the right ureter and a right retrograde pyelogram was performed. Patient was noted to have right hydronephrosis with an obstructing renal or proximal ureteral calculus similar to what was seen on CT scanning. I then advanced a sensor 0.35 wire through the open-ended catheter up into the right renal pelvis and the right open-ended ureteral catheter was further advanced up into the right renal pelvis and the wire was withdrawn. There was purulent drainage then coming from the open- ended catheter and a sample sent off for culture. The sensor wire was reintroduced and then the open-ended catheter was exchanged for a 6 Greek 24 cm buttermaker helper double-J stent. The stent was passed on the both cystoscopic and fluoroscopic guidance without difficulty. Once the stent was in proper position the trailing string was removed. An 18 Greek 10 cc Arnold catheter was next placed and connected to gravity drainage. The patient tolerated the procedures without complications. Transferred to the PACU in satisfactory condition. Arun Herman MD Feb 19, 2017 14:04
[2017-02-19] MEDS ORDERED: POTASSIUM CHLORIDE 10 MEQ CONTROLLED RELEASE TAB PO ONE (15:00)
--- NOTE | 2017-02-19 15:06 | HHI.PR ---
Subjective Remarks This is a pleasant 66 y/o male with Hypertension, Hyperlipidemia, PAD, COPD, who came to ER with Right hip pain after fall was a Mechanical fall, alcoholism, he has CT compression fracture on T12 Neurosurgery specialist gave recommendations the patient will go today for Cystoscopy and Ureteral stent placement and outpatient ESWL. 02/17 Seen in his bedroom in the presence of his , Mrs. Sim appreciated, he has Hematuria small amount of blood when voiding, all questions explained. 02/18 stable in his bedroom, discussed with nurse Miss Vergara elected conservative management for T12 Fracture. 02/19 Seen in his bedroom in the presence of his , no nausea, vomit or diarrhea, will go home as soon as recommended so by Urology specialist. no pain. with diagnosis of Renal Calculus on the right, and Ureteral Calculus on Right status post Cystoscopy, Right retrograde Pyelogram and right ureteral stent placement. by Doctor Arun Herman Objective Vital Signs Date Time Temp Pulse Resp B/P Pulse Ox O2 Delivery O2 Flow Rate FiO2 02/19/17 12:06 Nasal Cannula 2 02/19/17 09:15 93 Nasal Cannula 3.00 02/19/17 08:00 98.3 122 18 159/88 90 02/19/17 04:10 97.4 98 21 133/62 92 02/19/17 03:16 90 Nasal Cannula 3.00 02/19/17 00:19 92 Nasal Cannula 3.00 02/19/17 00:14 96.5 91 18 141/67 92 02/18/17 20:37 99.0 100 18 149/70 96 02/18/17 20:30 104 02/18/17 16:00 97.8 102 17 125/68 95 02/18/17 15:29 94 Nasal Cannula 2.00 I/O 02/18/17 02/18/17 02/18/17 02/19/17 02/19/17 02/19/17 07:00 15:00 23:00 07:00 15:00 23:00 Intake Total 1058 ml 240 ml 760 ml 800 ml 0 ml Output Total 500 ml 350 ml 800 ml 800 ml Balance 558 ml -110 ml -40 ml 0 ml 0 ml Intake Oral 380 ml 240 ml 360 ml 0 ml IV Total 678 ml 400 ml 800 ml Output Urine Total 500 ml 350 ml 800 ml 800 ml # Voids 1 # Bowel Movements 0 0 Result Diagram: 02/18/17 0415 02/18/17 1530 Imaging Last Impressions Chest X-Ray 02/15/17 1659 Signed Impressions: Service Date/Time: January 17:09 - CONCLUSION: 1. Moderate left hemidiaphragm elevation. 2. No other acute cardiopulmonary disease identified. Nacho Park MD Abdomen/Pelvis CT 02/15/17 1659 Signed Impressions: Service Date/Time: January 17:18 - CONCLUSION: 1. Large calculi in the right renal pelvis and proximal ureter. 2. Moderate to severe right hydronephrosis. 3. Nonspecific superior urinary bladder wall thickening. Malignancy is in the differential diagnosis. 4. Multiple bladder calculi. 5. Chronic sigmoid colon diverticular disease. Nacho Park MD Head CT 02/15/17 1337 Signed Impressions: Service Date/Time: January 13:41 - CONCLUSION: 1. Small left maxillary sinus air-fluid level indicating possible acute sinusitis. 2. Mild diffuse atrophy. 3. No acute intracranial findings. Nacho Park MD Lumbar Spine CT 02/15/17 1302 Signed Impressions: Service Date/Time: January 13:08 - CONCLUSION: 1. Acute to subacute compression fracture the T12 vertebral body. No bony retropulsion. No resulting central canal narrowing. 2. Severe right hydronephrosis and large right-sided renal calculi partially visualized. 3. Multilevel degenerative findings. Minimal central canal narrowing L4-5. 4. Left sided L5 pars interarticularis defect. Nacho Park MD Hip and Pelvis X-Ray 02/15/17 1302 Signed Impressions: Service Date/Time: January 13:19 - CONCLUSION: No evidence of fracture. Nacho Park MD Procedures with diagnosis of Renal Calculus on the right, and Ureteral Calculus on Right status post Cystoscopy, Right retrograde Pyelogram and right ureteral stent placement. by Doctor Arun Herman Other Results Laboratory Tests Test 02/15/17 02/15/17 02/15/17 02/16/17 12:40 15:42 16:00 12:02 Total Bilirubin 0.7 MG/DL Aspartate Amino Transf 55 U/L (AST/SGOT) Alanine Aminotransferase 45 U/L (ALT/SGPT) Alkaline Phosphatase 112 U/L Albumin 2.4 GM/DL Lactic Acid Level 1.8 mmol/L Urine Collection Type CLEAN CATCH Urine Color YELLOW Urine Turbidity MOD Urine pH 6.5 Urine Specific [place] 1.006 Urine Protein NEG mg/dL Urine Glucose (UA) NEG mg/dL Urine Ketones TRACE mg/dL Urine Occult Blood SMALL Urine Nitrite NEG Urine Bilirubin NEG Urine Leukocyte Esterase LARGE Urine RBC 10-14 /hpf Urine WBC 15-19 /hpf Urine Squamous Epithelial 0-5 /hpf Cells Urine Bacteria MANY /hpf Microscopic Urinalysis Comment CULTURE INDICATED Urine Collection Time 16:00 Band Neutrophils % 14 % Metamyelocytes 1 % Helmet Cells OCC Keratocytes OCC Test 02/18/17 02/18/17 04:15 15:30 White Blood Count 9.2 TH/MM3 Red Blood Count 3.24 MIL/MM3 Hemoglobin 9.3 GM/DL Hematocrit 28.3 % Mean Corpuscular Volume 87.4 FL Mean Corpuscular Hemoglobin 28.6 PG Mean Corpuscular Hemoglobin 32.8 % Concent Red Cell Distribution Width 17.8 % Platelet Count 246 TH/MM3 Mean Platelet Volume 7.1 FL Neutrophils (%) (Auto) 79.8 % Lymphocytes (%) (Auto) 7.8 % Monocytes (%) (Auto) 10.8 % Eosinophils (%) (Auto) 1.1 % Basophils (%) (Auto) 0.5 % Neutrophils # (Auto) 7.4 TH/MM3 Lymphocytes # (Auto) 0.7 TH/MM3 Monocytes # (Auto) 1.0 TH/MM3 Eosinophils # (Auto) 0.1 TH/MM3 Basophils # (Auto) 0.1 TH/MM3 CBC Comment AUTO DIFF Differential Total Cells 100 Counted Neutrophils % (Manual) 80 % Lymphocytes % 13 % Monocytes % 3 % Eosinophils % 2 % Basophils % 1 % Neutrophils # (Manual) 7.5 TH/MM3 Promyelocytes 1 % Differential Comment FINAL DIFF MANUAL Platelet Estimate NORMAL Platelet Morphology Comment NORMAL Target Cells 1+ Ovalocytes 1+ Sodium Level 132 MEQ/L Chloride Level 99 MEQ/L Carbon Dioxide Level 22.2 MEQ/L Anion Gap 11 MEQ/L Blood Urea Nitrogen 9 MG/DL Creatinine 0.93 MG/DL Estimat Glomerular Filtration 81 ML/MIN Rate Random Glucose 81 MG/DL Calcium Level 7.3 MG/DL Protein Corrected Calcium 8.5 MG/DL Phosphorus Level 3.0 MG/DL Magnesium Level 1.8 MG/DL Total Protein 5.0 GM/DL Potassium Level 3.5 MEQ/L Objective Remarks GENERAL: Well-developed patient, in no apparent distress. SKIN: No rashes, ecchymoses or lesions. Cool and dry. HEAD: Atraumatic. Normocephalic. EYES: Pupils equal round and reactive. No injection or drainage. ENT: Nose without bleeding, purulent drainage or septal hematoma. Airway patent. NECK: Trachea midline. No JVD or lymphadenopathy. Supple, nontender, no meningeal signs. CARDIOVASCULAR: Regular rate and rhythm without murmurs, gallops, or rubs. RESPIRATORY: Clear to auscultation. Breath sounds equal bilaterally. No wheezes , rales, or rhonchi. GASTROINTESTINAL: Abdomen soft, non-tender, nondistended. No hepato-splenomegaly , or palpable masses. No guarding. MUSCULOSKELETAL: Extremities without clubbing, cyanosis, or edema. No joint tenderness, effusion, or edema noted. No calf tenderness. NEUROLOGICAL: Awake and alert. Motor and sensory grossly within normal limits. Normal speech. Medications and IVs Current Medications Medications (Trade) Dose Ordered Sig/Evelyne Route Start Time Stop Time Status Last Admin Piperacillin Sod/ Tazobactam Sod 50 ml @ 100 mls/hr Q6H IV 02/16/17 00:00 02/19/17 13:26 (NS 1000 ml Inj) 1,000 ml @ 100 mls/hr Q10H IV 02/15/17 19:07 02/18/17 02:22 (NS Flush) 2 ml UNSCH PRN IV FLUSH 02/15/17 19:15 (NS Flush) 2 ml BID IV FLUSH 02/15/17 21:00 02/18/17 09:00 (Tylenol) 650 mg Q4H PRN PO 02/15/17 19:15 02/17/17 01:14 (Zofran Inj) 4 mg Q6H PRN IVP 02/15/17 19:15 (Milk Of Magnesia Liq) 30 ml Q12H PRN PO 02/15/17 19:15 (Narcan Inj) 0.4 mg UNSCH PRN IV 02/15/17 19:15 (Aspirin) 325 mg DAILY PO 02/16/17 09:00 02/19/17 08:48 (Pravachol) 20 mg HS PO 02/15/17 21:00 02/18/17 20:09 (Morphine Inj) 2 mg Q3H PRN IV PUSH 02/15/17 20:15 02/19/17 09:05 (Mucinex Er) 600 mg BID PO 02/16/17 21:00 02/19/17 08:47 (Protonix) 40 mg DAILY PO 02/17/17 14:45 02/19/17 08:47 (Carafate) 1 gm ACHS PO 02/17/17 16:00 02/19/17 08:47 A/P Problem List: (1) UTI (urinary tract infection) ICD Code: N39.0 (2) Fracture of thoracic spine ICD Code: S22.009A (3) HTN (hypertension) ICD Code: I10 (4) HLD (hyperlipidemia) ICD Code: E78.5 Assessment and Plan 1. UTI on Zosyn, Urology specialist following, with Diagnosis of Obstructing right renal and proximal ureteral calculi, Cystoscopy ureteral stent, elective outpatient ESWL. not done yesterday due to Hyponatremia today 131. afebrile. 2. Hypertension controlled. 3. Hyperlipidemia continue Home medicines 4. PAD by history 5. COPD started on Bronchodilator, Mucolytic and incentive spirometry. 6. Nephrolithiasis/Hydronephrosis/acute renal injury CT abdomen showing Large calculi, Hydronephrosis, Urinary bladder thickening, with diagnosis of Renal Calculus on the right, and Ureteral Calculus on Right, status post Cystoscopy, Right retrograde Pyelogram and right ureteral stent placement. by Doctor Arun Herman 7. Hyponatremia on IV fluids, Improving, today 132, this could be [place] his states he drinks Beer. 8. Thoracic spine fracture T12, seen by Neurosurgery recommended conservative management. 9. Hypokalemia and Hypomagnesemia replaced. 10. leukocytosis Improving. Discussed with patient and nurse in the room Dvt prophylaxes: SCDs. Discharge Planning Expected for later today or in am tomorrow. Problem Qualifiers (1) UTI (urinary tract infection): Qualified Code: N30.00 - Acute cystitis without hematuria (2) Fracture of thoracic spine: Qualified Code: S22.089A - Closed fracture of twelfth thoracic vertebra, unspecified fracture morphology, initial encounter Tal Arreaga MD Feb 19, 2017 15:06
[2017-02-19] MEDS: PRAVASTATIN SOD 20 MG TAB PO SCH (20:49)
--- NOTE | 2017-02-19 21:21 | HHI.NSPN ---
Note Status Status: Progress Note Interval History Diagnosis lumbar fracture Interval History 66 y/o male with a history of HTN, HLD, PVD and COPD WHO presented to the [place] emergency department with complains of severe right hip pain after suffering a fall on Sunday.Apparetly he tripped over his dog in the bathroom and feel between the toilet and sink. He was unable to get up so he asked his son for help. Once he got up he was able to walk around. He describes the pain as aching and mostly only in his right hip, no associated symptoms noted. Patient denies any fever, chill, nausea, vomiting or dysuria. He has noticed he is urinating less often. CT of the lumbar spine show a compression fracture. A neurosurgical consultation was requested 02/19 pain well controlled, Wants conservative treatment Labs, Micro, & Vital Signs Results Date Time Temp Pulse Resp B/P Pulse Ox O2 Delivery O2 Flow Rate FiO2 02/19/17 19:19 96 Nasal Cannula 3.00 02/19/17 16:00 95.2 90 16 146/69 93 02/19/17 14:50 98.0 86 15 122/70 94 Nasal Cannula 3 02/19/17 14:45 80 15 131/71 94 Nasal Cannula 3 02/19/17 14:30 88 15 102/60 94 Nasal Cannula 3 02/19/17 14:14 98.8 75 15 108/63 93 Nasal Cannula 3 02/19/17 12:06 Nasal Cannula 2 02/19/17 09:15 93 Nasal Cannula 3.00 02/19/17 08:00 98.3 122 18 159/88 90 02/19/17 04:10 97.4 98 21 133/62 92 02/19/17 03:16 90 Nasal Cannula 3.00 02/19/17 00:19 92 Nasal Cannula 3.00 02/19/17 00:14 96.5 91 18 141/67 92 02/19/17 07:00 Intake Total 1800 ml Output Total 1950 ml Balance -150 ml Constitutional Vital Signs Date Time Temp Pulse Resp B/P Pulse Ox O2 Delivery O2 Flow Rate FiO2 02/19/17 19:19 96 Nasal Cannula 3.00 02/19/17 16:00 95.2 90 16 146/69 93 02/19/17 14:50 98.0 86 15 122/70 94 Nasal Cannula 3 02/19/17 14:45 80 15 131/71 94 Nasal Cannula 3 02/19/17 14:30 88 15 102/60 94 Nasal Cannula 3 02/19/17 14:14 98.8 75 15 108/63 93 Nasal Cannula 3 02/19/17 12:06 Nasal Cannula 2 02/19/17 09:15 93 Nasal Cannula 3.00 02/19/17 08:00 98.3 122 18 159/88 90 02/19/17 04:10 97.4 98 21 133/62 92 02/19/17 03:16 90 Nasal Cannula 3.00 02/19/17 00:19 92 Nasal Cannula 3.00 02/19/17 00:14 96.5 91 18 141/67 92 02/19/17 07:00 Intake Total 1800 ml Output Total 1950 ml Balance -150 ml Review of Systems/Exam Exam Mr Lehman is alert, awake and oriented to time, place and person. Speech is fluent. Higher cognitive functions are normal. Cranial nerve examination demonstrates the pupils to be equal, round, and reactive to light. Extra-ocular movements are intact. Facial motor and sensory function are normal and symmetrical. Gross hearing is intact, bilaterally. The uvula is midline and elevates symmetrically with the soft palate. Sternocleidomastoid and trapezius muscles have normal and symmetrical strength. Other cranial nerves are intact. Neck is soft and supple. Cervical spine has a full range of motion in anterior flexion, extension, lateral bending, and rotation without pain. There is no tenderness to palpation to the spinous processes or paraspinal muscles. Muscle testing reveals normal bulk and tone overall without rigidity, spasticity , fasciculations, or atrophy. Muscle strength is 5/5 in all muscle groups of both upper extremities including deltoid, biceps, triceps, brachioradialis, wrist extension and neighborhood coordinator. In the lower extremities, strength is 5/5 in both iliopsoas, quadriceps, hamstrings, plantar flexion, dorsiflexion, and extensor hallicus longus. Sensory examination is intact to light touch and sharp/dull discrimination in both the upper and lower extremities, symmetrically. Deep tendon reflexes are 2+ and symmetrical in the biceps, triceps, and brachioradialis, bilaterally, in the upper extremities. In the lower extremities , the patellar and Achilles are 2+, bilaterally. There is a bilateral plantar flexion response. Hoffmanns sign is negative. There is no clonus or other abnormal reflexes noted. Cerebellar examination is intact to [id number] test, rapid rhythmic alternating motion. There is no dysmetria, dysdiadochokinesia, truncal ataxia Medications Current Medications Current Medications Sodium Chloride 1,000 ml @ 999 mls/hr BOLUS ONCE IV Last administered on 02/15 13:05; Start 02/15/17 at 13:00; Stop 02/15/17 at 14:00; Status DC Vancomycin HCl 1000 mg/Sodium Chloride 250 ml @ 250 mls/hr ONCE ONCE IV Last administered on 02/15/17 16:00; Start 02/15/17 at 16:00; Stop 02/15/17 at 16:59 ; Status DC Piperacillin Sod/ Tazobactam Sod 50 ml @ 100 mls/hr ONCE ONCE IV Last administered on 02/15/17 17:35; Start 02/15/17 at 16:00; Stop 02/15/17 at 16:29 ; Status DC Sodium Chloride 1,000 ml @ 125 mls/hr Q8H IV Last administered on 02/15/17 16 :10; Start 02/15/17 at 16:00; Stop 02/15/17 at 19:12; Status DC Sodium Chloride 1,000 ml @ 999 mls/hr BOLUS ONCE IV Last administered on 02/15 17:10; Start 02/15/17 at 17:00; Stop 02/15/17 at 18:00; Status DC Sodium Chloride 1,000 ml @ 125 mls/hr Q8H IV ; Start 02/15/17 at 17:00; Stop at 19:12; Status DC Piperacillin Sod/ Tazobactam Sod 50 ml @ 100 mls/hr Q6H IV Last administered on 02/19/17 18:06; Start 02/16/17 at 00:00 Sodium Chloride (NS 1000 ml Inj) 1,000 ml @ 100 mls/hr Q10H IV Last administered on 02/19/17 15:29; Start 02/15/17 at 19:07 Sodium Chloride (NS Flush) 2 ml UNSCH PRN IV FLUSH FLUSH AFTER USING IV ACCESS ; Start 02/15/17 at 19:15 Sodium Chloride (NS Flush) 2 ml BID IV FLUSH Last administered on 02/19/17 20: 48; Start 02/15/17 at 21:00 Acetaminophen (Tylenol) 650 mg Q4H PRN PO TEMP > 100.4 Last administered on 02/17 01:14; Start 02/15/17 at 19:15 Ondansetron HCl (Zofran Inj) 4 mg Q6H PRN IVP NAUSEA OR VOMITING; Start at 19:15 Magnesium Hydroxide (Milk Of Magnesia Liq) 30 ml Q12H PRN PO CONSTIPATION; Start 02/15/17 at 19:15 Naloxone HCl (Narcan Inj) 0.4 mg UNSCH PRN IV SEE LABEL COMMENTS; Start at 19:15 Aspirin (Aspirin) 325 mg DAILY PO Last administered on 02/19/17 08:48; Start at 09:00 Pravastatin Sodium (Pravachol) 20 mg HS PO Last administered on 02/19/17 20:49 ; Start 02/15/17 at 21:00 Albuterol/ Ipratropium (Duoneb Neb) 1 ampule Q6HR NEB PRN NEB dyspnea Last administered on 02/15/17 21:55; Start 02/15/17 at 19:15; Stop 02/16/17 at 14:44 ; Status DC Morphine Sulfate (Morphine Inj) 2 mg Q3H PRN IV PUSH pain >5 Last administered on 02/19/17 20:54; Start 02/15/17 at 20:15 Sodium Polystyrene Sulfonate (Kayexalate Liq) 15 gm ONCE ONCE PO Last administered on 02/16/17 14:59; Start 02/16/17 at 14:45; Stop 02/16/17 at 14:46 ; Status DC Albuterol/ Ipratropium (Duoneb Neb) 1 ampule Q4HR NEB NEB Last administered on 02/19/17 19:18; Start 02/16/17 at 16:00 Guaifenesin (Mucinex Er) 600 mg BID PO Last administered on 02/19/17 20:49; Start 02/16/17 at 21:00 Pantoprazole Sodium (Protonix) 40 mg DAILY PO Last administered on 02/19/17 08: 47; Start 02/17/17 at 14:45 Sucralfate 1 gm 1 gm ACHS PO Last administered on 02/19/17 20:49; Start at 16:00 Magnesium Sulfate/ Dextrose (Magnesium Sulfate 1 Gm Premix) 100 ml @ 100 mls/ hr Q1H IV Last administered on 02/18/17 12:29; Start 02/18/17 at 10:00; Stop 02/18/17 at 11:59; Status DC Potassium Chloride (KCl) 40 meq ONCE ONCE PO Last administered on 02/18/17 10: 17; Start 02/18/17 at 10:00; Stop 02/18/17 at 10:01; Status DC Acetaminophen (Ofirmev Inj) 1,000 mg STK-MED ONCE IV ; Start 02/19/17 at 12:54; Stop 02/19/17 at 12:55; Status DC Midazolam HCl (Versed Inj) 2 mg STK-MED ONCE .ROUTE ; Start 02/19/17 at 12:54; Stop 02/19/17 at 12:55; Status DC Fentanyl Citrate (fentaNYL INJ) 100 mcg STK-MED ONCE .ROUTE ; Start 02/19/17 at 12:54; Stop 02/19/17 at 12:55; Status DC Famotidine (Pepcid Inj) 20 mg STK-MED ONCE .ROUTE ; Start 02/19/17 at 12:54; Stop 02/19/17 at 12:55; Status DC Iohexol (Omnipaque 350 Inj) 50 ml STK-MED ONCE .XX Last administered on 13:34; Start 02/19/17 at 13:34; Stop 02/19/17 at 13:47; Status DC Potassium Chloride (KCl) 30 meq ONCE ONCE PO Last administered on 02/19/17 15: 26; Start 02/19/17 at 15:00; Stop 02/19/17 at 15:01; Status DC Medical Decision Making MDM Remarks Last Impressions Chest X-Ray 02/15/17 [id number] Signed Impressions: Service Date/Time: January 17:09 - CONCLUSION: 1. Moderate left hemidiaphragm elevation. 2. No other acute cardiopulmonary disease identified. Nacho Park MD Abdomen/Pelvis CT 02/15/17 1659 Signed Impressions: Service Date/Time: January 17:18 - CONCLUSION: 1. Large calculi in the right renal pelvis and proximal ureter. 2. Moderate to severe right hydronephrosis. 3. Nonspecific superior urinary bladder wall thickening. Malignancy is in the differential diagnosis. 4. Multiple bladder calculi. 5. Chronic sigmoid colon diverticular disease. Nacho Park MD Head CT 02/15/17 1337 Signed Impressions: Service Date/Time: January 13:41 - CONCLUSION: 1. Small left maxillary sinus air-fluid level indicating possible acute sinusitis. 2. Mild diffuse atrophy. 3. No acute intracranial findings. Nacho Park MD Lumbar Spine CT 02/15/17 1302 Signed Impressions: Service Date/Time: January 13:08 - CONCLUSION: 1. Acute to subacute compression fracture the T12 vertebral body. No bony retropulsion. No resulting central canal narrowing. 2. Severe right hydronephrosis and large right-sided renal calculi partially visualized. 3. Multilevel degenerative findings. Minimal central canal narrowing L4-5. 4. Left sided L5 pars interarticularis defect. Nacho Park MD Hip and Pelvis X-Ray 02/15/17 1302 Signed Impressions: Service Date/Time: January 13:19 - CONCLUSION: No evidence of fracture. Nacho Park MD Plan Plan Remarks 66 y/o male with a history of HTN, HLD, PVD and COPD presented to the ED with complains of severe right hip pain after suffering a fall on Sunday. (1) UTI (urinary tract infection) ICD Code: N39.0 Status: Acute (2) Hydronephrosis ICD Code: N13.30 Status: Acute (3) Nephrolithiasis ICD Code: N20.0 Status: Acute (4) Hyponatremia ICD Code: E87.1 Status: Acute (5) Fracture of thoracic spine ICD Code: S22.009A Status: Acute (6) HLD (hyperlipidemia) ICD Code: E78.5 Status: Chronic (7) HTN (hypertension) ICD Code: I10 Attending Statement I have reviewed his clinical and further studies. neuro checks in a serial fashion. Recommend MRI of the thoracic spine. Thoracic spine fx, T12. I have discussed with him the alternatives of treatment, including the possibility of a kyphoplasty versus conservative management with a TLSO brace. He is requesting conservative treatment of his pain is not so severe. Respiratory. pulmonary toilette, nasotracheal suction, and breathing treatments with nebulizers. PT and OT eval Hyponatremia. NaCl, BMP in AM and trend Nutrition. Oral diet, renal Renal. Nephrolithiasis/hydronephrosis/ Acute Kidney injury Abdominal CT shows Large calculi in the right renal pelvis and proximal ureter. Moderate to severe right hydronephrosis. Nonspecific superior urinary bladder wall thickening. Malignancy is in the differential diagnosis. 4. Multiple bladder calculi. Hyperlipidemia, chronic: cont home medication pravastatin HTN, chronic: Hypotension on admission, will hold BP medications for now, Cont to monitor vitals Endocrine. Monitor serial Acu checks and SSI for tight control ID UA positive large leukocyte esterase -Urine culture and blood cultures pending -Zosyn IV Protonix for stress ulcer prophylaxis Berry cook and SCD's for DVT prophylaxis Jose Dubois MD Feb 19, 2017 21:21
[2017-02-20] MEDS: RESP: ALBUTEROL 2.5 MG/IPRATROPIUM 0.5 MG NEB (SCH) NEB ×4 (00:07→12:26)
[2017-02-20 00:15] VITALS: BP 152/71; PULSE 84; RESP 20; TEMP 96; O2SAT 98
[2017-02-20] MEDS: SUCRALFATE 1 GM TAB PO SCH ×3 (06:45→16:00)
[2017-02-20] MEDS: PIPERACIL-TAZO 3.375 GM PREMIX 50 ML IV SCH ×2 (06:46→12:35)
[2017-02-20] MEDS: MORPHINE SULFATE 4 MG/ML INJ IV PUSH PRN ×2 (06:50→12:35)
[2017-02-20 08:00] VITALS: BP 146/76; PULSE 81; RESP 17; TEMP 95.9; O2SAT 92
[2017-02-20] MEDS: SODIUM CHLORIDE 0.9% FLUSH 10 ML FLUSH IV FLUSH SCH (08:50)
[2017-02-20] MEDS: PANTOPRAZOLE SOD 40 MG DELAYED RELEASE TAB PO SCH (08:51)
[2017-02-20] MEDS: guaiFENesin E.R. 600 MG TAB PO SCH (08:51)
[2017-02-20] MEDS: ASPIRIN 325 MG TAB PO SCH (08:51)
[2017-02-20] MEDS: SODIUM CHLOR 0.9% 1000 ML INJ 1,000 ML IV SCH (08:52)
[2017-02-20 09:15] VITALS: O2SAT 97
[2017-02-20 12:00] VITALS: BP 131/68; PULSE 90; RESP 16; TEMP 95.8; O2SAT 92
--- NOTE | 2017-02-20 12:47 | HHI.PR ---
Subjective Remarks This is a pleasant 66 y/o male with Hypertension, Hyperlipidemia, PAD, COPD, who came to ER with Right hip pain after fall was a Mechanical fall, alcoholism, he has CT compression fracture on T12 Neurosurgery specialist gave recommendations the patient will go today for Cystoscopy and Ureteral stent placement and outpatient ESWL. 02/17 Seen in his bedroom in the presence of his , Mrs. Sim appreciated, he has Hematuria small amount of blood when voiding, all questions explained. 02/18 stable in his bedroom, discussed with nurse Ursula elected conservative management for T12 Fracture. 02/19 Seen in his bedroom, will go home as soon as recommended so by Urology specialist. no pain. with diagnosis of Renal Calculus on the right, and Ureteral Calculus on Right status post Cystoscopy, Right retrograde Pyelogram and right ureteral stent placement. by Doctor Arun Herman 02/20 Seen in his bedroom, no complaint, Arnold cath removed by Urology specialist , okay to discharge Home and follow with PCP and Urology specialist as outpatient. Objective Vital Signs Date Time Temp Pulse Resp B/P Pulse Ox O2 Delivery O2 Flow Rate FiO2 02/20/17 12:00 95.8 90 16 131/68 92 02/20/17 09:15 97 Nasal Cannula 3.00 02/20/17 08:00 95.9 81 17 146/76 92 02/20/17 00:15 96.0 84 20 152/71 98 02/19/17 20:00 96.8 105 20 135/63 97 02/19/17 19:19 96 Nasal Cannula 3.00 02/19/17 16:00 95.2 90 16 146/69 93 02/19/17 14:50 98.0 86 15 122/70 94 Nasal Cannula 3 02/19/17 14:45 80 15 131/71 94 Nasal Cannula 3 02/19/17 14:30 88 15 102/60 94 Nasal Cannula 3 02/19/17 14:14 98.8 75 15 108/63 93 Nasal Cannula 3 I/O 02/19/17 02/19/17 02/19/17 02/20/17 02/20/17 02/20/17 07:00 15:00 23:00 07:00 15:00 23:00 Intake Total 800 ml 1100 ml 360 ml 240 ml Output Total 800 ml 30 ml 300 ml 450 ml Balance 0 ml 1070 ml 60 ml -210 ml Intake Oral 0 ml 360 ml 240 ml IV Total 800 ml 100 ml Other 1000 ml Output Urine Total 800 ml 30 ml 300 ml 450 ml # Voids 1 # Bowel Movements 0 1 1 Result Diagram: 02/18/17 0415 02/18/17 1530 Imaging Last Impressions Chest X-Ray 02/15/17 1659 Signed Impressions: Service Date/Time: January 17:09 - CONCLUSION: 1. Moderate left hemidiaphragm elevation. 2. No other acute cardiopulmonary disease identified. Nacho Park MD Abdomen/Pelvis CT 02/15/17 1659 Signed Impressions: Service Date/Time: January 17:18 - CONCLUSION: 1. Large calculi in the right renal pelvis and proximal ureter. 2. Moderate to severe right hydronephrosis. 3. Nonspecific superior urinary bladder wall thickening. Malignancy is in the differential diagnosis. 4. Multiple bladder calculi. 5. Chronic sigmoid colon diverticular disease. Nacho Park MD Head CT 02/15/17 1337 Signed Impressions: Service Date/Time: January 13:41 - CONCLUSION: 1. Small left maxillary sinus air-fluid level indicating possible acute sinusitis. 2. Mild diffuse atrophy. 3. No acute intracranial findings. Nacho Park MD Lumbar Spine CT 02/15/17 1302 Signed Impressions: Service Date/Time: January 13:08 - CONCLUSION: 1. Acute to subacute compression fracture the T12 vertebral body. No bony retropulsion. No resulting central canal narrowing. 2. Severe right hydronephrosis and large right-sided renal calculi partially visualized. 3. Multilevel degenerative findings. Minimal central canal narrowing L4-5. 4. Left sided L5 pars interarticularis defect. Nacho Park MD Hip and Pelvis X-Ray 02/15/17 1302 Signed Impressions: Service Date/Time: January 13:19 - CONCLUSION: No evidence of fracture. Nacho Park MD Procedures with diagnosis of Renal Calculus on the right, and Ureteral Calculus on Right status post Cystoscopy, Right retrograde Pyelogram and right ureteral stent placement. by Doctor Arun Herman Other Results Laboratory Tests Test 02/15/17 02/16/17 02/18/17 02/18/17 16:00 12:02 04:15 15:30 Urine Collection Type CLEAN CATCH Urine Color YELLOW Urine Turbidity MOD Urine pH 6.5 Urine Specific [place] 1.006 Urine Protein NEG mg/dL Urine Glucose (UA) NEG mg/dL Urine Ketones TRACE mg/dL Urine Occult Blood SMALL Urine Nitrite NEG Urine Bilirubin NEG Urine Leukocyte Esterase LARGE Urine RBC 10-14 /hpf Urine WBC 15-19 /hpf Urine Squamous Epithelial 0-5 /hpf Cells Urine Bacteria MANY /hpf Microscopic Urinalysis Comment CULTURE INDICATED Urine Collection Time 16:00 Band Neutrophils % 14 % Metamyelocytes 1 % Helmet Cells OCC Keratocytes OCC White Blood Count 9.2 TH/MM3 Red Blood Count 3.24 MIL/MM3 Hemoglobin 9.3 GM/DL Hematocrit 28.3 % Mean Corpuscular Volume 87.4 FL Mean Corpuscular Hemoglobin 28.6 PG Mean Corpuscular Hemoglobin 32.8 % Concent Red Cell Distribution Width 17.8 % Platelet Count 246 TH/MM3 Mean Platelet Volume 7.1 FL Neutrophils (%) (Auto) 79.8 % Lymphocytes (%) (Auto) 7.8 % Monocytes (%) (Auto) 10.8 % Eosinophils (%) (Auto) 1.1 % Basophils (%) (Auto) 0.5 % Neutrophils # (Auto) 7.4 TH/MM3 Lymphocytes # (Auto) 0.7 TH/MM3 Monocytes # (Auto) 1.0 TH/MM3 Eosinophils # (Auto) 0.1 TH/MM3 Basophils # (Auto) 0.1 TH/MM3 CBC Comment AUTO DIFF Differential Total Cells 100 Counted Neutrophils % (Manual) 80 % Lymphocytes % 13 % Monocytes % 3 % Eosinophils % 2 % Basophils % 1 % Neutrophils # (Manual) 7.5 TH/MM3 Promyelocytes 1 % Differential Comment FINAL DIFF MANUAL Platelet Estimate NORMAL Platelet Morphology Comment NORMAL Target Cells 1+ Ovalocytes 1+ Sodium Level 132 MEQ/L Chloride Level 99 MEQ/L Carbon Dioxide Level 22.2 MEQ/L Anion Gap 11 MEQ/L Blood Urea Nitrogen 9 MG/DL Creatinine 0.93 MG/DL Estimat Glomerular Filtration 81 ML/MIN Rate Random Glucose 81 MG/DL Calcium Level 7.3 MG/DL Protein Corrected Calcium 8.5 MG/DL Phosphorus Level 3.0 MG/DL Magnesium Level 1.8 MG/DL Total Protein 5.0 GM/DL Potassium Level 3.5 MEQ/L Objective Remarks GENERAL: Well-developed patient, in no apparent distress. SKIN: No rashes, ecchymoses or lesions. Cool and dry. HEAD: Atraumatic. Normocephalic. EYES: Pupils equal round and reactive. No injection or drainage. ENT: Nose without bleeding, purulent drainage or septal hematoma. Airway patent. NECK: Trachea midline. No JVD or lymphadenopathy. Supple, nontender, no meningeal signs. CARDIOVASCULAR: Regular rate and rhythm without murmurs, gallops, or rubs. RESPIRATORY: Clear to auscultation. Breath sounds equal bilaterally. No wheezes , rales, or rhonchi. GASTROINTESTINAL: Abdomen soft, non-tender, nondistended. No hepato-splenomegaly , or palpable masses. No guarding. MUSCULOSKELETAL: Extremities without clubbing, cyanosis, or edema. No joint tenderness, effusion, or edema noted. No calf tenderness. NEUROLOGICAL: Awake and alert. Motor and sensory grossly within normal limits. Normal speech. Medications and IVs Current Medications Medications (Trade) Dose Ordered Sig/Evelyne Route Start Time Stop Time Status Last Admin Piperacillin Sod/ Tazobactam Sod 50 ml @ 100 mls/hr Q6H IV 02/16/17 00:00 02/20/17 12:35 (NS 1000 ml Inj) 1,000 ml @ 100 mls/hr Q10H IV 02/15/17 19:07 02/20/17 08:52 (NS Flush) 2 ml UNSCH PRN IV FLUSH 02/15/17 19:15 (NS Flush) 2 ml BID IV FLUSH 02/15/17 21:00 02/20/17 08:50 (Tylenol) 650 mg Q4H PRN PO 02/15/17 19:15 02/17/17 01:14 (Zofran Inj) 4 mg Q6H PRN IVP 02/15/17 19:15 (Milk Of Magnesia Liq) 30 ml Q12H PRN PO 02/15/17 19:15 (Narcan Inj) 0.4 mg UNSCH PRN IV 02/15/17 19:15 (Aspirin) 325 mg DAILY PO 02/16/17 09:00 02/20/17 08:51 (Pravachol) 20 mg HS PO 02/15/17 21:00 4/3/17 20:49 (Morphine Inj) 2 mg Q3H PRN IV PUSH 02/15/17 20:15 02/20/17 12:35 (Mucinex Er) 600 mg BID PO 02/16/17 21:00 02/20/17 08:51 (Protonix) 40 mg DAILY PO 02/17/17 14:45 02/20/17 08:51 (Carafate) 1 gm ACHS PO 02/17/17 16:00 02/20/17 12:34 A/P Problem List: (1) UTI (urinary tract infection) ICD Code: N39.0 (2) Fracture of thoracic spine ICD Code: S22.009A (3) HTN (hypertension) ICD Code: I10 (4) HLD (hyperlipidemia) ICD Code: E78.5 Assessment and Plan 1. UTI on Zosyn, Urology specialist following, with Diagnosis of Obstructing right renal and proximal ureteral calculi, Cystoscopy ureteral stent, elective outpatient ESWL. not done yesterday due to Hyponatremia today 131. afebrile. Urine culture positive for Gram positive and Gram negative rods probable contaminant he is been on Zosyn since admission on 02/15/17 no further antibiotics at this time. 2. Hypertension controlled. 3. Hyperlipidemia continue Home medicines 4. PAD by history 5. COPD started on Bronchodilator, Mucolytic and incentive spirometry. 6. Nephrolithiasis/Hydronephrosis/acute renal injury CT abdomen showing Large calculi, Hydronephrosis, Urinary bladder thickening, with diagnosis of Renal Calculus on the right, and Ureteral Calculus on Right, status post Cystoscopy, Right retrograde Pyelogram and right ureteral stent placement. by Doctor saniya Denis to discharge and follow as outpatient. 7. Hyponatremia on IV fluids, Improving, today 132, this could be [place] his states he drinks Beer. Stable. 8. Thoracic spine fracture T12, seen by Neurosurgery recommended conservative management. 9. Hypokalemia and Hypomagnesemia replaced. 10. leukocytosis Improved Discussed with patient and nurse in the room Dvt prophylaxes: SCDs. Discharge Planning Discharge Home today. Problem Qualifiers (1) UTI (urinary tract infection): Qualified Code: N30.00 - Acute cystitis without hematuria (2) Fracture of thoracic spine: Qualified Code: S22.089A - Closed fracture of twelfth thoracic vertebra, unspecified fracture morphology, initial encounter Tal Arreaga MD Feb 20, 2017 12:47
[2017-02-20] MEDS ORDERED: MUCI600T PO (13:04)
[2017-02-20] MEDS ORDERED: HYDR-3533 PO (13:04)
[2017-02-20] MEDS ORDERED: CARA1TAB6 PO (13:04)
--- NOTE | 2017-02-20 13:07 | HHI.DS ---
Discharge Summary Admission Date Feb 15, 2017 at 18:08 Discharge Date: Feb 20, 2017 Admitting Diagnosis UTI, HYDRONEPHROSIS (1) UTI (urinary tract infection) ICD Code: N39.0 Diagnosis: Principal (2) Hydronephrosis ICD Code: N13.30 Diagnosis: Principal (3) Nephrolithiasis ICD Code: N20.0 Diagnosis: Principal (4) Hyponatremia ICD Code: E87.1 Diagnosis: Secondary (5) Fracture of thoracic spine ICD Code: S22.009A Diagnosis: Principal (6) HLD (hyperlipidemia) ICD Code: E78.5 Diagnosis: Secondary (7) HTN (hypertension) ICD Code: I10 Diagnosis: Secondary Procedures with diagnosis of Renal Calculus on the right, and Ureteral Calculus on Right status post Cystoscopy, Right retrograde Pyelogram and right ureteral stent placement. by Doctor Arun Herman Brief History - From Admission 66 y/o male with a history of HTN, HLD, PVD and COPD presented to the ED with complains of severe right hip pain after suffering a fall on Sunday. Patient states he tripped over his dog in the bathroom and feel between the toilet and sink. At the time he was unable to get up so he asked his son for help. Once he got up he was able to walk around, the pain did not get better and her tried to get into his Dr but was able to. He states the pain is aching and mostly only in his right hip, no associated symptoms noted. Patient denies any fever, chill, nausea, vomiting or dysuria. Although he does not have pain with urination he states he has noticed he is urinating less often. CBC/BMP: 02/18/17 0415 02/18/17 1530 Significant Findings Laboratory Tests Test 02/17/17 02/18/17 13:45 04:15 Potassium Level 3.0 MEQ/L 3.0 MEQ/L (3.5-5.1) (3.5-5.1) Red Blood Count 3.24 MIL/MM3 (4.50-5.90) Hemoglobin 9.3 GM/DL (13.0-17.0) Hematocrit 28.3 % (39.0-51.0) Red Cell Distribution Width 17.8 % (11.6-17.2) Neutrophils (%) (Auto) 79.8 % (16.0-70.0) Lymphocytes (%) (Auto) 7.8 % (9.0-44.0) Monocytes (%) (Auto) 10.8 % (0.0-8.0) Lymphocytes # (Auto) 0.7 TH/MM3 (1.0-4.8) Monocytes # (Auto) 1.0 TH/MM3 (0-0.9) Neutrophils % (Manual) 80 % (16-70) Promyelocytes 1 % (0-0) Target Cells 1+ (NORMAL) Ovalocytes 1+ (NORMAL) Sodium Level 132 MEQ/L (136-145) Estimat Glomerular Filtration 81 ML/MIN (>89) Rate Calcium Level 7.3 MG/DL (8.5-10.1) Total Protein 5.0 GM/DL (6.4-8.2) Imaging Last Impressions Chest X-Ray 02/15/171658 Signed Impressions: Service Date/Time: January 17:09 - CONCLUSION: 1. Moderate left hemidiaphragm elevation. 2. No other acute cardiopulmonary disease identified. Nacho Park MD Abdomen/Pelvis CT 02/15/171658 Signed Impressions: Service Date/Time: January 17:18 - CONCLUSION: 1. Large calculi in the right renal pelvis and proximal ureter. 2. Moderate to severe right hydronephrosis. 3. Nonspecific superior urinary bladder wall thickening. Malignancy is in the differential diagnosis. 4. Multiple bladder calculi. 5. Chronic sigmoid colon diverticular disease. Nacho Park MD Head CT 02/15/17 1337 Signed Impressions: Service Date/Time: January 13:41 - CONCLUSION: 1. Small left maxillary sinus air-fluid level indicating possible acute sinusitis. 2. Mild diffuse atrophy. 3. No acute intracranial findings. Nacho Park MD Lumbar Spine CT 02/15/17 1302 Signed Impressions: Service Date/Time: January 13:08 - CONCLUSION: 1. Acute to subacute compression fracture the T12 vertebral body. No bony retropulsion. No resulting central canal narrowing. 2. Severe right hydronephrosis and large right-sided renal calculi partially visualized. 3. Multilevel degenerative findings. Minimal central canal narrowing L4-5. 4. Left sided L5 pars interarticularis defect. Nacho Park MD Hip and Pelvis X-Ray 02/15/17 1302 Signed Impressions: Service Date/Time: January 13:19 - CONCLUSION: No evidence of fracture. Nacho Park MD PE at Discharge GENERAL: Well-developed patient, in no apparent distress. SKIN: No rashes, ecchymoses or lesions. Cool and dry. HEAD: Atraumatic. Normocephalic. EYES: Pupils equal round and reactive. No injection or drainage. ENT: Nose without bleeding, purulent drainage or septal hematoma. Airway patent. NECK: Trachea midline. No JVD or lymphadenopathy. Supple, nontender, no meningeal signs. CARDIOVASCULAR: Regular rate and rhythm without murmurs, gallops, or rubs. RESPIRATORY: Clear to auscultation. Breath sounds equal bilaterally. No wheezes , rales, or rhonchi. GASTROINTESTINAL: Abdomen soft, non-tender, nondistended. No hepato-splenomegaly , or palpable masses. No guarding. MUSCULOSKELETAL: Extremities without clubbing, cyanosis, or edema. No joint tenderness, effusion, or edema noted. No calf tenderness. NEUROLOGICAL: Awake and alert. Motor and sensory grossly within normal limits. Normal speech. Hospital Course This is a pleasant 66 y/o male with Hypertension, Hyperlipidemia, PAD, COPD, who came to ER with Right hip pain after fall was a Mechanical fall, alcoholism, he has CT compression fracture on T12 Neurosurgery specialist gave recommendations the patient will go today for Cystoscopy and Ureteral stent placement and outpatient ESWL. 02/17 Seen in his bedroom in the presence of his , Mrs. Sim appreciated, he has Hematuria small amount of blood when voiding, all questions explained. 02/18 stable in his bedroom, discussed with nurse Miss Vergara elected conservative management for T12 Fracture. 02/19 Seen in his bedroom, will go home as soon as recommended so by Urology specialist. no pain. with diagnosis of Renal Calculus on the right, and Ureteral Calculus on Right status post Cystoscopy, Right retrograde Pyelogram and right ureteral stent placement. by Doctor Arun Herman 02/20 Seen in his bedroom, no complaint, Arnold cath removed by Urology specialist , saniya to discharge Home and follow with PCP and Urology specialist as outpatient. Assessment and Plan 1. UTI on Zosyn, Urology specialist following, with Diagnosis of Obstructing right renal and proximal ureteral calculi, Cystoscopy ureteral stent, elective outpatient ESWL. not done yesterday due to Hyponatremia today 131. afebrile. Urine culture positive for Gram positive and Gram negative rods probable contaminant he is been on Zosyn since admission on 02/15/17 no further antibiotics at this time. 2. Hypertension controlled. 3. Hyperlipidemia continue Home medicines 4. PAD by history 5. COPD started on Bronchodilator, Mucolytic and incentive spirometry. 6. Nephrolithiasis/Hydronephrosis/acute renal injury CT abdomen showing Large calculi, Hydronephrosis, Urinary bladder thickening, with diagnosis of Renal Calculus on the right, and Ureteral Calculus on Right, status post Cystoscopy, Right retrograde Pyelogram and right ureteral stent placement. by Doctor Arun Herman, saniya to discharge and follow as outpatient. 7. Hyponatremia on IV fluids, Improving, today 132, this could be [place] his states he drinks Beer. Stable. 8. Thoracic spine fracture T12, seen by Neurosurgery recommended conservative management. 9. Hypokalemia and Hypomagnesemia replaced. 10. leukocytosis Improved Discussed with patient and nurse in the room Dvt prophylaxes: SCDs. Discharge Planning Discharge Home today. Pt Condition on Discharge: Good Discharge Disposition: Discharge Home Discharge Time: > 30 minutes Discharge Instructions DIET: Follow Instructions for: Heart Healthy Diet Speech Therapy-Diet Recommends: Mechanical Soft Activities you can perform: Regular-No Restrictions Tal Arreaga MD Feb 20, 2017 13:07
[2017-02-20 15:55] VITALS: PULSE 75
[2017-04-19] MEDS ORDERED: HYDR-3533 PO (13:54)
[2017-04-19] MEDS ORDERED: CIPR-9 PO (13:54)
== END 2017-02-20 17:24 | disposition home or self-care (01) | DRG 690 ==
LOC: PHED 12:12 → PHEDA 18:08 → N07B 21:21
PROVIDERS: ADMIT Internal Medicine; ATTEND Internal Medicine
PROC: BT1D1ZZ Fluoroscopy of Right Kidney, Ureter and Bladder using Low Osmolar Contrast (ICD-10-PCS; 2017-02-19)
PROC: 0T768DZ Dilation of Right Ureter with Intraluminal Device, Via Natural or Artificial Opening Endoscopic (ICD-10-PCS; principal; 2017-02-19 13:14)
DX: N39.0 Urinary tract infection, site not specified (principal); N17.9 Acute kidney failure, unspecified; S22.089A Unspecified fracture of T11-T12 vertebra, initial encounter for closed fracture; J44.9 Chronic obstructive pulmonary disease, unspecified; E87.1 Hypo-osmolality and hyponatremia; N13.2 Hydronephrosis with renal and ureteral calculous obstruction; W01.0XXA Fall on same level from slipping, tripping and stumbling without subsequent striking against object, initial encounter; Y92.002 Bathroom of unspecified non-institutional (private) residence as the place of occurrence of the external cause; M25.552 Pain in left hip; M25.551 Pain in right hip; I73.9 Peripheral vascular disease, unspecified; I10 Essential (primary) hypertension; E78.5 Hyperlipidemia, unspecified; E87.6 Hypokalemia; E83.42 Hypomagnesemia; E87.5 Hyperkalemia; Z87.891 Personal history of nicotine dependence
CPT/HCPCS: 70450; 71010; 72131; 73502; 74176; 74420; 76937; 80048; 80053; 81001; 83605; 83735; 84100; 84132; 84155; 85007; 85025; 85027; 87040; 87077; 87086; 87186; 93005; 94150; 94640; 94664; 96361; 96365; 96367; C1769; J0131; J2250; J2270; J2405; J2543; J3010; J3370; J3475; J7030; J7050; L0200; L0484; Q9967

== ENCOUNTER → 2017-03-07 | Day surgery (SDC) | payer OTHER ==
[~2017-03-07] VITALS: Ht 170.2 cm; Wt 52.2 kg
[~2017-03-07] MED LIST changes: +ACETAMINOPHEN 1000 MG/100 ML VIAL IV ONE; +ALBU.5I NEB; +ALBU6.7H INH; +AMLO2.5C PO; +ASPI81CH CHEW; +CARA1TAB6 PO; +CHLORHEXIDINE GLUCONATE 2 % 1 PACK (2 CLOTHS) TOPICAL PRN; +CIPR-9 PO; +DIFL200T PO; +FURO40TA PO; +HYDR-3533 PO; +INSULIN HUMAN REGULAR 1,000 UNITS/10 ML VIAL SQ PRN; +LACTATED RINGER'S 1000 ML IV PRN; +LISI-519 PO; +METO50TA PO; +METOPROLOL TARTRATE 25 MG TAB PO PRN; +MIDAZOLAM HCL 2 MG/2 ML VIAL ONE; +MUCI600T PO; -OXYC-360 PO; +OXYGENDME NAS.CANULA; +PANT40TA3 PO; +POVIDONE IODINE 5% (ANTISEPSIS KIT) 4 APPLICATIONS EACH NARE PRN; +PRAV20TA2 PO; +PRED20 PO; +PROPOFOL 200 MG/20 ML AMP IV ONE; +RESP: ALBUTEROL 2.5 MG/3 ML NEB (PRN) ONE; +SODIUM CHLORID 0.9% 500 ML IV PRN; +TAMS5CAP PO; +WALKER WHEELS/F1 MIS; +ceFAZolin 1,000 MG/NS 100 ML IV SCH
[2017-03-07 09:03] VITALS: BP 164/86; PULSE 94; RESP 18; TEMP 98; O2SAT 99
--- NOTE | 2017-03-07 09:13 | RADRPT ---
EXAM DATE/TIME: 03/07/2017 08:31 [facility] COMPARISON: No previous studies available for comparison. INDICATIONS : Pre op kidney surgery MEDICAL HISTORY : None. SURGICAL HISTORY : Right urinary stent ENCOUNTER: Initial ACUITY: 1 day PAIN SCORE: 0/10 LOCATION: Bilateral Abdomen FINDINGS: There is a double-J stent present on the right side in good position. No calcification seen projecte d over either kidney. Dense vascular calcification in the aorta and iliac vessels. No dilated loops of small or large bowel. The visualized lower lungs are clear. CONCLUSION: Double-J stent in place on the right side. Jaxon Jones MD on March 07, 2017 at 9:10 Board Certified Radiologist. This report was verified electronically.
--- NOTE | 2017-03-07 12:34 | PD.OP ---
Operative Report Date of Surgery: Mar 07, 2017 Preoperative Diagnosis: Right UPJ calculus Postoperative Diagnosis: Same Procedure: Right extraportal shockwave lithotripsy Anesthesia: TIVA Surgeon: Mickey Coates Acetylene Torch Operator(s): None Resident Surgeon: None Operation and Findings: 66-year-old male with findings of a right UPJ stone. Patient underwent cystoscopy with right double-J stent placement by Dr. Bowen in the past. He elected to undergo right extraportal shockwave lithotripsy. Risk and benefits were discussed preoperatively and he was willing to proceed. Patient is brought to operating room and therefore myself as Keltonsara Mcgrawdimitri. He was placed on the operating table in the supine position. He received preprocedure antibiotics and TIVA anesthesia was administered. Under ultrasonic guided imaging the stone was identified. ESWL therapy commenced with the patient receiving a total of 2500 shocks with a power level up to 20. Good fragmentation stone was visualized under ultrasound guidance. He tolerated the procedure well and will follow-up in the office in 2 weeks and obtain a CT scan prior. Mickey Coates DO Mar 07, 2017 12:34
[2017-03-07 13:20] VITALS: BP 137/73; PULSE 78; RESP 16; TEMP 97.5; O2SAT 99
== END | disposition home or self-care (01) ==
LOC: HSDC 08:07
PROVIDERS: ATTEND Urology
DX: N20.2 Calculus of kidney with calculus of ureter (principal); I10 Essential (primary) hypertension; J44.9 Chronic obstructive pulmonary disease, unspecified; Z79.82 Long term (current) use of aspirin
CPT/HCPCS: 00873; 50590; 74000; 94664; J0131; J0690; J2250; J3010; J7120; J7613

== ENCOUNTER 2017-04-30 18:28 | Inpatient (IN) | payer OTHER, MEDICARE ==
[~2017-04-30] VITALS: Ht 167.6 cm; Wt 52.0 kg
[~2017-04-30 18:28] MED LIST changes: -ACETAMINOPHEN 1000 MG/100 ML VIAL IV ONE; -ALBU6.7H INH; -ASPI81CH CHEW; -CHLORHEXIDINE GLUCONATE 2 % 1 PACK (2 CLOTHS) TOPICAL PRN; -DIFL200T PO; -FURO40TA PO; -INSULIN HUMAN REGULAR 1,000 UNITS/10 ML VIAL SQ PRN; -LACTATED RINGER'S 1000 ML IV PRN; -LISI-519 PO; -METOPROLOL TARTRATE 25 MG TAB PO PRN; -MIDAZOLAM HCL 2 MG/2 ML VIAL ONE; -OXYGENDME NAS.CANULA; -PANT40TA3 PO; -POVIDONE IODINE 5% (ANTISEPSIS KIT) 4 APPLICATIONS EACH NARE PRN; -PRED20 PO; -PROPOFOL 200 MG/20 ML AMP IV ONE; -RESP: ALBUTEROL 2.5 MG/3 ML NEB (PRN) ONE; -SODIUM CHLORID 0.9% 500 ML IV PRN; -TAMS5CAP PO; -WALKER WHEELS/F1 MIS; -ceFAZolin 1,000 MG/NS 100 ML IV SCH
[2017-04-30 18:30] VITALS: BP 117/63; PULSE 99; RESP 24; TEMP 97.3; O2SAT 99
--- NOTE | 2017-04-30 18:36 | PD ---
Physical Exam Date Seen by Provider: Apr 30, 2017 Time Seen by Provider: 18:34 Narrative 66 yo male here for evaluation of possible kidney stone pain. Per patient he has a stent in place. Had the stones "broken but nothing came out". Pain is sever /10. Going on for months but more severe since yesterday. Moving to left leg. Dr Herman is urologist. Per patient he was told to come here if not better. He also states he has pain on his chest since last night. On/off. Nothing makes it better. Vitals sign stable. Patient awaiting bed placement. Data Data Last Documented VS Vital Signs Date Time Temp Pulse Resp B/P Pulse Ox O2 Delivery O2 Flow Rate FiO2 04/30/17 18:30 97.3 99 24 117/63 99 Room Air [facility] Medical Record Reviewed: Yes Supervised Visit with JAIR: Js Banerjee Apr 30, 2017 18:36
[2017-04-30] MEDS ORDERED: SODIUM CHLOR 0.9% 1000 ML INJ 1,000 ML IV SCH (20:35)
--- NOTE | 2017-04-30 20:37 | PD ---
HPI Chief Complaint: Flank/Kidney Pain Time Seen by Provider: 20:36 Travel History International Travel<30 days: No Contact w/Intl Traveler<30days: No Traveled to known affect area: No History of Present Illness HPI 66-year-old male with a history of hypertension, hyperlipidemia, COPD, kidney stones presents to the emergency department for evaluation of right flank pain and chest pain. The patient states that he has kidney stones on his right side and had a stent placed by Dr. Herman 3 months ago with following lithotripsy. States that he never saw any stones pass in his urine after these procedures were done. States that he's been seeing him in the office recently for a recurrent urinary tract infection, finished Cipro one week ago. States that over the past 4 days he's had worsening right flank pain and was told to come to the ED if his symptoms ever worsened. States that 2 days ago he had multiple episodes of nonbloody nonbilious emesis with nausea. He's had loss of appetite. He states that since last night he's had lower bilateral chest pain intermittently that he describes as "feeling as though my lungs hurt." He denies any shortness of breath, difficulty breathing, lightheadedness, dizziness , fever, chills, diarrhea, constipation, hematuria. States that he does have burning with urination and cloudy urine which has been present for several weeks. States that he is scheduled to have the stent removed at the end of this month. No other complaints. PFSH Past Medical History Hx Anticoagulant Therapy: Yes (ASPIRIN) Arthritis: Yes Cancer: No Cardiovascular Problems: Yes High Cholesterol: Yes COPD: Yes Diabetes: No Diminished Hearing: No Endocrine: No Genitourinary: No Hepatitis: No Hiatal Hernia: No Hypertension: Yes Immune Disorder: No Musculoskeletal: Yes (PAIN TO BACK & BILAT HIPS, OA) Neurologic: Yes (recent fall with fx spine) Psychiatric: No Reproductive: No Respiratory: Yes (COPD) Immunizations Current: Yes Thyroid Disease: No Past Surgical History Abdominal Surgery: No AICD: No Body Medical Devices: RIGHT KIDNEY STENT Cardiac Surgery: No Ear Surgery: No Endocrine Surgery: No Eye Surgery: No Genitourinary Surgery: Yes (STENT TO RIGHT KIDNEY) Gynecologic Surgery: Yes (stents r side ) Joint Replacement: No Oral Surgery: No Pacemaker: No Thoracic Surgery: No Other Surgery: Yes (VEINS) Social History Alcohol Use: Yes (BEER) Tobacco Use: No Substance Use: No Allergies-Medications (Allergen,Severity, Reaction): Coded Allergies: Codeine (Verified Allergy, Severe, Itching, 04/30/17) Reported Meds & Prescriptions Reported Meds & Active Scripts Active Cipro (Ciprofloxacin HCl) 500 Mg Tab 500 Mg PO BID Lortab (Hydrocodone-Acetaminophen) 5-325 Mg Tab 1 Tab PO Q4H PRN Do not take this medicine if you will drive a car or use a machine, only use it when resting at home. Carafate (Sucralfate) 1 Gm Tab 1 Gm PO ACHS Mucinex ER 12 HR (Guaifenesin) 600 Mg Kaylen 600 Mg PO BID Reported Aspirin 325 Mg Tab 325 Mg PO DAILY Albuterol Neb (Albuterol Sulfate) 2.5 Mg/0.5 Ml Neb 2.5 Mg NEB BID Note: The Albuterol Sulfate Inhalation Solution is concentrated and must be diluted. Read complete instructions carefully before using. Amlodipine-Benazepril 2.5-10 Mg Cap 1 Cap PO DAILY Metoprolol Tartrate 50 Mg Tab 50 Mg PO DAILY Pravastatin 20 Mg Tab 20 Mg PO HS Review of Systems Except as stated in HPI: all other systems reviewed are Neg Physical Exam Narrative GENERAL: Well-nourished and well-developed male patient in no acute distress who is nontoxic appearing. SKIN: Warm and dry. HEAD: Normocephalic and atraumatic. EYES: No injection, drainage, or hyphema noted. PERRLA. EOMI. ENT: No nasal drainage noted. Oropharynx is clear. NECK: Supple and the trachea is midline. CARDIOVASCULAR: Regular rate and rhythm. RESPIRATORY: Breath sounds are equal bilaterally with no accessory muscle use, wheezing, rhonchi, or crackles. GASTROINTESTINAL: Right flank and right mid-lower abdominal tenderness to palpation. Abdomen is soft, non-tender, and nondistended. MUSCULOSKELETAL: No obvious deformities, swelling, cyanosis, or ecchymosis is present throughout the upper and lower extremities. Patient has full range of motion without any signs of neurovascular compromise. NEUROLOGICAL: Awake, alert, and oriented. Normal speech and gait. Cranial nerves are grossly intact. Data Data Last Documented VS Vital Signs Date Time Temp Pulse Resp B/P Pulse Ox O2 Delivery O2 Flow Rate FiO2 04/30/17 22:24 105 22 120/69 98 Room Air 04/30/17 18:30 97.3 Orders Complete Blood Count With Diff (04/30/17 20:35) Comprehensive Metabolic Panel (04/30/17 20:35) Lipase (04/30/17 20:35) Prothrombin Time / Inr (Pt) (04/30/17 20:35) Act Partial Throm Time (Ptt) (04/30/17 20:35) Urinalysis - C+S If Indicated (04/30/17 20:35) Ct Abd/Pel W/O Iv Contrast (04/30/17 20:35) Iv Access Insert/Monitor (04/30/17 20:35) Ecg Monitoring (04/30/17 20:35) Oximetry (04/30/17 20:35) Morphine Inj (Morphine Inj) (04/30/17 20:45) Ondansetron Inj (Zofran Inj) (04/30/17 20:45) Sodium Chlor 0.9% 1000 Ml Inj (Ns 1000 M (04/30/17 20:35) Sodium Chloride 0.9% Flush (Ns Flush) (04/30/17 20:45) Electrocardiogram (04/30/17 20:35) Ckmb (Isoenzyme) Profile (04/30/17 20:35) Troponin I (04/30/17 20:35) Chest, Single Ap (04/30/17 20:35) Vancomycin Inj (Vancomycin Inj) (04/30/17 22:30) Piperacil-Tazo 3.375 Gm Premix (Zosyn 3. (04/30/17 22:30) Sodium Chlor 0.9% 1000 Ml Inj (Ns 1000 M (04/30/17 22:30) Blood Culture (04/30/17 22:27) Lactic Acid (04/30/17 22:27) Aspirin (Aspirin) (04/30/17 22:30) Labs Laboratory Tests Test 04/30/17 21:05 White Blood Count 29.4 TH/MM3 Red Blood Count 4.24 MIL/MM3 Hemoglobin 12.4 GM/DL Hematocrit 38.6 % Mean Corpuscular Volume 91.1 FL Mean Corpuscular Hemoglobin 29.3 PG Mean Corpuscular Hemoglobin 32.2 % Concent Red Cell Distribution Width 15.5 % Platelet Count 594 TH/MM3 Mean Platelet Volume 6.8 FL Neutrophils (%) (Auto) 88.9 % Lymphocytes (%) (Auto) 5.8 % Monocytes (%) (Auto) 4.8 % Eosinophils (%) (Auto) 0.1 % Basophils (%) (Auto) 0.4 % Neutrophils # (Auto) 26.1 TH/MM3 Lymphocytes # (Auto) 1.7 TH/MM3 Monocytes # (Auto) 1.4 TH/MM3 Eosinophils # (Auto) 0.0 TH/MM3 Basophils # (Auto) 0.1 TH/MM3 CBC Comment DIFF FINAL Differential Comment Prothrombin Time 12.8 SEC Prothromb Time International 1.2 RATIO Ratio Activated Partial 28.6 SEC Thromboplast Time MDM Medical Decision Making Medical Screen Exam Complete: Yes Emergency Medical Condition: Yes Differential Diagnosis Kidney stones versus pyelonephritis versus hydronephrosis versus chest wall pain versus pleurisy versus ACS Narrative Course 66-year-old male presents to the emergency department for evaluation of right flank pain and chest pain. Patient is afebrile, vital signs are stable. IV access is obtained, labs were drawn and sent. Patient is placed on cardiac telemetry and pulse oximetry monitoring. Patient is administered IV morphine and Zofran. CBC shows leukocytosis with a white count of 29.4, anemia with a hemoglobin 12.4 , hematocrit 38.6. Coags are unremarkable. Noncontrast abdominal CT shows subacute-appearing right perinephric hematomas. Large heterogeneous stone in the right renal pelvis. Right ureteral stent present. There is moderate to severe hydronephrosis, similar to before. Persistent bladder stone appears to be intramural. There is air in the wall focally adjacent to the stone and also air in the lumen. There could be a colovesicular fistula. Sigmoid diverticulitis presents but no acute inflammatory changes are seen. Atherosclerosis of the abdominal aorta. Mild atelectasis and small effusion of the visualized right lung base. Patient signed out to Dr. Hallman who will assume care of the patient and disposition. Rosie Valero Apr 30, 2017 20:36
[2017-04-30] MEDS ORDERED: SODIUM CHLORIDE 0.9% FLUSH 10 ML FLUSH IV FLUSH PRN (20:45)
[2017-04-30] MEDS ORDERED: ONDANSETRON HCL 4 MG/2 ML VIAL IVP ONE (20:45)
[2017-04-30] MEDS ORDERED: MORPHINE SULFATE 4 MG/ML INJ IV PUSH ONE (20:45)
--- NOTE | 2017-04-30 21:07 | RADRPT ---
EXAM DATE/TIME: 04/30/2017 20:48 [facility] COMPARISON: No previous studies available for comparison. INDICATIONS : Chest pain . MEDICAL HISTORY : kidney stones SURGICAL HISTORY : None. ENCOUNTER: Initial ACUITY: 1 day PAIN SCORE: 4/10 LOCATION: Bilateral upper chest FINDINGS: Faint focal opacity laterally in the right upper lobe. Lungs are otherwise clear. No pleural effusion. No pneumothorax. Left hemidiaphragm elevation again n oted. CONCLUSION: Focal right upper lobe opacity, mass and localized infiltrate both in the differential. CT the chest recommended, preferably with intravenous contrast. Unchanged elevation of the left hemidiaphragm. Hi Kirkpatrick MD on April 30, 2017 at 21:03 Board Certified Radiologist. This report was verified electronically.
[2017-04-30 21:14] VITALS: O2SAT 99
[2017-04-30 21:44] LABS: AUTOMATED NEUTROPHIL # 26.1 TH/MM3 (1.8-7.7); BASOPHIL # 0.1 TH/MM3 (0-0.2); BASOPHIL % 0.4 % (0.0-2.0); EOSINOPHIL % 0.1 % (0.0-4.0); HEMATOCRIT 38.6 % (39.0-51.0); HEMO FLAGS DIFF FINAL; LYMPH % 5.8 % (9.0-44.0); LYMPHOCYTE # 1.7 TH/MM3 (1.0-4.8); MEAN CELL VOLUME 91.1 FL (80.0-100.0); MEAN CORPUSCULAR HEMOGLOBIN 29.3 PG (27.0-34.0); MEAN CORPUSCULAR HGB CONC 32.2 % (32.0-36.0); MONO % 4.8 % (0.0-8.0); NEUT % 88.9 % (16.0-70.0); PLATELET COUNT 594 TH/MM3 (150-450); RED BLOOD COUNT 4.24 MIL/MM3 (4.50-5.90); RED CELL DISTRIBUTION WIDTH 15.5 % (11.6-17.2); WHITE BLOOD COUNT 29.4 TH/MM3 (4.0-11.0)
[2017-04-30 21:53] LABS: APTT (PATIENT) 28.6 SEC (24.3-30.1); INTERNATIONAL NORMALIZED RATIO 1.2 RATIO; PROTHROMBIN TIME - PATIENT 12.8 SEC (9.8-11.6)
--- NOTE | 2017-04-30 22:04 | RADRPT ---
EXAM DATE/TIME: 04/30/2017 21:31 [facility] COMPARISON: CT ABDOMEN & PELVIS W/O CONTRAST, February 15, 2017, 17:18. INDICATIONS : Right flank pain x4-5 days. Recent lithotripsy. ORAL CONTRAST: No oral contrast ingested. RADIATION DOSE: 4.57 CTDIvol (mGy) MEDICAL HISTORY : Cardiovascular disease. Hypertension. Gastroesophageal reflux disease.Renal calculi. SURGICAL HISTORY : Right renal stent. ENCOUNTER: Initial ACUITY: 4 - 6 days PAIN SCALE: 8/10 LOCATION: Right flank TECHNIQUE: Volumetric scanning of the abdomen and pelvis was performed. Using automated exposure control and ad justment of the mA and/or kV according to patient size, radiation dose was kept as low as reasonably achievable to obtain optimal diagnostic quality images. FINDINGS: Large, irregular and heterogeneous stone again seen in the right renal pelvis, measures at least 3.6 cm in size. A right ureteral stent is present. There is moderate to severe right hydronephrosis, fair ly similar to the prior study. However, subacute appearing hemorrhage seen in throat is fascial with 2 main foci present, one measuring 3.9 x 5.4 x 0.3 cm and the other more posteriorly measuring 3.9 x 4.9 x 6.3 cm. These are primarily of the mid zone to lower pole regions. 14 mm stone superiorly of the urinary bladder again noted, appears to be intramural. There is now a f ew bubbles of gas adjacent to it. There is mild, fairly circumferential bladder wall thickening. No obstruction or acute inflammatory changes are seen of the gastrointestinal tract. There is sigmoid colon diverticulosis. Dense atherosclerotic plaque again seen of the abdominal aorta. Consolidation and a small pleural effusion seen in the right lung base. CONCLUSION: 1. Subacute appearing right perinephric hematomas. Please see above. 2. Large heterogeneous stone in the right renal pelvis. Right ureteral stent present. There is modera te to severe hydronephrosis, similar to before. 3. Persistent bladder stone, appears to be intramural. There is air in the wall focally adjacent to t he stone and also air in the lumen. There could be a colovesical fistula. Sigmoid colon diverticulosi s present but no acute inflammatory changes are seen. 4. Atherosclerosis of the abdominal aorta. 5. Mild atelectasis and small effusion of the visualized right lung base. Hi Kirkpatrick MD on April 30, 2017 at 21:55 Board Certified Radiologist. This report was verified electronically.
[2017-04-30 22:24] VITALS: BP 120/69; PULSE 105; RESP 22; O2SAT 98
[2017-04-30] MEDS ORDERED: ASPIRIN 325 MG TAB PO ONE (22:30)
[2017-04-30] MEDS ORDERED: SODIUM CHLOR 0.9% 1000 ML INJ 1,000 ML IV ONE (22:30)
[2017-04-30] MEDS ORDERED: PIPERACIL-TAZO 3.375 GM PREMIX 50 ML IV ONE (22:30)
[2017-04-30] MEDS ORDERED: VANCOMYCIN INJ 1,500 MG in SODIUM CHLORID 0.9% 500 ML INJ 500 ML IV ONE (22:30)
[2017-04-30 22:48] LABS: ANION GAP 18 MEQ/L (5-15)
[2017-04-30 22:56] LABS: ALKALINE PHOSPHATASE 183 U/L (45-117); ALT (GPT) 41 U/L (12-78); AST (GOT) 56 U/L (15-37); BICARBONATE 14.5 MEQ/L (21.0-32.0); BLOOD UREA NITROGEN 8 MG/DL (7-18); CHLORIDE 91 MEQ/L (98-107); GLOMERULAR FILTRATION RATE 146 ML/MIN (>89); POTASSIUM 4.8 MEQ/L (3.5-5.1); TOTAL BILIRUBIN ADULT 0.4 MG/DL (0.2-1.0)
[2017-04-30 23:01] LABS: CREATINE KINASE 84 U/L (39-308)
[2017-04-30 23:03] LABS: SODIUM (NA) 123 MEQ/L (136-145)
[2017-04-30 23:15] VITALS: BP 111/60; PULSE 106; RESP 18; O2SAT 99
[2017-04-30] MEDS ORDERED: ASPIRIN 81 MG CHEW TAB PO ONE (23:45)
[2017-04-30] MEDS ORDERED: NITROGLYCERIN 0.4 MG SL 25 TABS/BTL SL ONE (23:45)
[2017-05-01] VITALS (16 sets, daily range): BP systolic 93–113; BP diastolic 51–64; PULSE 82–105; RESP 17–25; TEMP 97.6–98.8; O2SAT 91–100
[2017-05-01 00:20] LABS: BACTERIA, URINE MANY /hpf; BLOOD, URINE MOD (NEG); COMMENT (UR) CULTURE INDICATED; CULTURE IF INDICATED CULTURE INDICATED; GLUCOSE,URINE NEG (NEG); KETONE, URINE NEG (NEG); NITRITE,URINE POS (NEG); PH, URINE 5.5 (5.0-8.5); SQUAMOUS EPITHELIAL CELL URINE 1 /hpf (0-5); URINE COLOR YELLOW (YELLW/STRAW)
[2017-05-01] MEDS: SODIUM CHLOR 0.9% 1000 ML INJ 1,000 ML IV SCH ×2 (00:42→12:21)
[2017-05-01] MEDS ORDERED: MISCELLANEOUS NURSING INFORMATION XX SCH (00:45)
[2017-05-01] MEDS ORDERED: Vancomycin Consult Pharmacy 1 EA OTHER SCH (00:45)
[2017-05-01] MEDS ORDERED: CHLORHEXIDINE GLUCONATE 2 % 1 PACK (2 CLOTHS) TOP PRN (00:45)
[2017-05-01] MEDS ORDERED: SODIUM CHLORIDE 0.9% FLUSH 10 ML FLUSH IV FLUSH PRN (00:45)
[2017-05-01] MEDS ORDERED: HEPARIN SODIUM - SQ 10,000 UNITS/ML VIAL SQ SCH (01:00)
--- NOTE | 2017-05-01 01:08 | PD ---
Data Data Last Documented VS Vital Signs Date Time Temp Pulse Resp B/P Pulse Ox O2 Delivery O2 Flow Rate FiO2 04/30/17 23:15 106 18 111/60 99 Room Air 04/30/17 18:30 97.3 Orders Complete Blood Count With Diff (04/30/17 20:35) Comprehensive Metabolic Panel (04/30/17 20:35) Lipase (04/30/17 20:35) Prothrombin Time / Inr (Pt) (04/30/17 20:35) Act Partial Throm Time (Ptt) (04/30/17 20:35) Urinalysis - C+S If Indicated (04/30/17 20:35) Ct Abd/Pel W/O Iv Contrast (04/30/17 20:35) Iv Access Insert/Monitor (04/30/17 20:35) Ecg Monitoring (04/30/17 20:35) Oximetry (04/30/17 20:35) Morphine Inj (Morphine Inj) (04/30/17 20:45) Ondansetron Inj (Zofran Inj) (04/30/17 20:45) Sodium Chlor 0.9% 1000 Ml Inj (Ns 1000 M (04/30/17 20:35) Sodium Chloride 0.9% Flush (Ns Flush) (04/30/17 20:45) Electrocardiogram (04/30/17 20:35) Ckmb (Isoenzyme) Profile (04/30/17 20:35) Troponin I (04/30/17 20:35) Chest, Single Ap (04/30/17 20:35) Vancomycin Inj (Vancomycin Inj) (04/30/17 22:30) Piperacil-Tazo 3.375 Gm Premix (Zosyn 3. (04/30/17 22:30) Sodium Chlor 0.9% 1000 Ml Inj (Ns 1000 M (04/30/17 22:30) Blood Culture (04/30/17 22:27) Lactic Acid (04/30/17 22:27) Aspirin (Aspirin) (04/30/17 22:30) Aspirin Chew (Aspirin Chew) (04/30/17 23:45) Nitroglycerin Sl (Nitrostat Sl) (04/30/17 23:45) Arterial Blood Gas (Abg) (04/30/17 ) Admit Order (Ed Use Only) (04/30/17 23:58) Labs Laboratory Tests Test 04/30/17 04/30/17 04/30/17 21:05 22:10 22:40 Prothrombin Time 12.8 SEC Prothromb Time International 1.2 RATIO Ratio Activated Partial 28.6 SEC Thromboplast Time White Blood Count 29.4 TH/MM3 Red Blood Count 4.24 MIL/MM3 Hemoglobin 12.4 GM/DL Hematocrit 38.6 % Mean Corpuscular Volume 91.1 FL Mean Corpuscular Hemoglobin 29.3 PG Mean Corpuscular Hemoglobin 32.2 % Concent Red Cell Distribution Width 15.5 % Platelet Count 594 TH/MM3 Mean Platelet Volume 6.8 FL Neutrophils (%) (Auto) 88.9 % Lymphocytes (%) (Auto) 5.8 % Monocytes (%) (Auto) 4.8 % Eosinophils (%) (Auto) 0.1 % Basophils (%) (Auto) 0.4 % Neutrophils # (Auto) 26.1 TH/MM3 Lymphocytes # (Auto) 1.7 TH/MM3 Monocytes # (Auto) 1.4 TH/MM3 Eosinophils # (Auto) 0.0 TH/MM3 Basophils # (Auto) 0.1 TH/MM3 CBC Comment DIFF FINAL Differential Comment Sodium Level 123 MEQ/L Potassium Level 4.8 MEQ/L Chloride Level 91 MEQ/L Carbon Dioxide Level 14.5 MEQ/L Anion Gap 18 MEQ/L Blood Urea Nitrogen 8 MG/DL Creatinine 0.56 MG/DL Estimat Glomerular Filtration 146 ML/MIN Rate Random Glucose 75 MG/DL Calcium Level 8.2 MG/DL Total Bilirubin 0.4 MG/DL Aspartate Amino Transf 56 U/L (AST/SGOT) Alanine Aminotransferase 41 U/L (ALT/SGPT) Alkaline Phosphatase 183 U/L Total Creatine Kinase 84 U/L Troponin I 0.06 NG/ML Total Protein 7.4 GM/DL Albumin 1.8 GM/DL Lipase 79 U/L Lactic Acid Level 1.8 mmol/L MDM Medical Record Reviewed: Yes Supervised Visit with JAIR: Yes Narrative Course I, Dr. Hallman, have reviewed the advance practice practitioner's documentation and am in agreement, met with the patient face to face, made the diagnosis, and the medical decision making was done by me. *My assessment and Findings: CBC & BMP Diagram 04/30/17 21:05 04/30/17 22:10 Tn 0.06 Liapse normal Albumin 1.8 Lactic acid 1.8 Anion Gap 18 INR 1.2 UA: UTI present Last 24 hours Impressions Chest X-Ray 04/30/172034 Signed Impressions: Service Date/Time: Sunday, April 30, 2017 20:48 - CONCLUSION: Focal right upper lobe opacity, mass and localized infiltrate both in the differential. CT the chest recommended, preferably with intravenous contrast. Unchanged elevation of the left hemidiaphragm. Hi Kirkpatrick MD Abdomen/Pelvis CT 04/30/172034 Signed Impressions: Service Date/Time: Sunday, April 30, 2017 21:31 - CONCLUSION: 1. Subacute appearing right perinephric hematomas. Please see above. 2. Large heterogeneous stone in the right renal pelvis. Right ureteral stent present. There is moderate to severe hydronephrosis, similar to before. 3. Persistent bladder stone, appears to be intramural. There is air in the wall focally adjacent to the stone and also air in the lumen. There could be a colovesical fistula. Sigmoid colon diverticulosis present but no acute inflammatory changes are seen. 4. Atherosclerosis of the abdominal aorta. 5. Mild atelectasis and small effusion of the visualized right lung base. Hi Kirkpatrick MD Zosyn/Vanco started. Abdomen soft. Pt speaking in full sentences. HR approx 100 with BP 110/80. Marked dyspnea while attempting to stand to urinate. EKG: ST elevations in V2-V3 with TWI in V4-6 concerning for ischemia; d/w cardiology, Dr De Leon, medical management for now. D/w Dr Ewing for urology D/w Dr Jama for CC service Pt will be admitted to meter reading clerk service. Sepsis Criteria SIRS Criteria (2 or more): Heart rate over 90, WBC > 04411, < 4000 or > 10% bands Sepsis Criteria (SIRS+source): Infect source susp/known Severe Sepsis (+one): Organ Dysfunction Waqar Hallman MD May 01, 2017 01:08
[2017-05-01] MEDS ORDERED: RESP: ALBUTEROL 2.5 MG/3 ML NEB (SCH) INH ONE (01:30)
[2017-05-01] MEDS ORDERED: HYDROmorphone HCL PF 1 MG/ML VIAL IV PUSH ONE (01:30)
--- NOTE | 2017-05-01 01:44 | HHI.HP ---
HPI Service Critical Care Medicine Primary Care Physician Kev Mitchell MD Admission Diagnosis Sepsis (PNA, ), NSTEMI, Dyspnea, Acidosis Diagnosis: Travel History International Travel<30 Days: No Contact w/Intl Traveler <30 Da: No Traveled to Known Affected Are: No History of Present Illness 66-year-old male with a history of hypertension, hyperlipidemia, COPD, kidney stones presents to the emergency department for evaluation of right flank pain and chest pain. The patient states that he has kidney stones on his right side and had a stent placed by Dr. Herman 3 months ago with following lithotripsy. Per patient he never saw any stones pass in his urine after these procedures were done. States that he's been seeing him in the office recently for a recurrent urinary tract infection, finished Cipro one week ago. Over the past 4 days he's had worsening right flank pain and was told to come to the ED if his symptoms ever worsened. He also had for last 2 days multiple episodes of nonbloody nonbilious emesis with nausea. He's had loss of appetite. He states that since last night he's had lower bilateral chest pain intermittently that he describes as "feeling as though my lungs hurt." He denies any shortness of breath, difficulty breathing, lightheadedness, dizziness, fever, chills, diarrhea, constipation, hematuria. States that he does have burning with urination and cloudy urine which has been present for several weeks. He is scheduled to have the urinary stent removed at the end of this month. Review of Systems Constitutional: DENIES: Diaphoretic episodes, Fatigue, Fever, Weight gain, Weight loss, Chills, Dizziness, Change in appetite, Night Sweats Endocrine: DENIES: Heat/cold intolerance, Polydipsia, Polyuria, Polyphagia Eyes: DENIES: Blurred vision, Diplopia, Eye inflammation, Eye pain, Vision loss , Photosensitivity, Double Vision Ears, nose, mouth, throat: DENIES: Tinnitus, Hearing loss, Vertigo, Nasal discharge, Oral lesions, Throat pain, Hoarseness, Ear Pain, Running Nose, Epistaxis, Sinus Pain, Toothache, Odynophagia Respiratory: DENIES: Apneas, Cough, Snoring, Wheezing, Hemoptysis, Sputum production, Shortness of breath Cardiovascular: COMPLAINS OF: Chest pain, DENIES: Palpitations, Syncope, Dyspnea on Exertion, PND, Lower Extremity Edema, Orthopnea, Claudication Gastrointestinal: COMPLAINS OF: Anorexia, DENIES: Abdominal pain, Black stools , Bloody stools, Constipation, Diarrhea, Nausea, Vomiting, Difficulty Swallowing Genitourinary: COMPLAINS OF: Sexual dysfunction, Urinary frequency, Urgency, Dysuria, DENIES: Urinary incontinence, Hematuria, Nocturia, Penile Discharge, Testicular Pain, Testicular Swelling Musculoskeletal: DENIES: Joint pain, Muscle aches, Stiffness, Joint Swelling, Back pain, Neck pain Integumentary: DENIES: Abnormal pigmentation, Nail changes, Pruritus, Rash Hematologic/lymphatic: DENIES: Bruising, Lymphadenopathy Immunologic/allergic: DENIES: Eczema, Urticaria Neurologic: DENIES: Abnormal gait, Headache, Localized weakness, Paresthesias, Seizures, Speech Problems, Tremor, Poor Balance Psychiatric: DENIES: Anxiety, Confusion, Mood changes, Depression, Hallucinations, Agitation, Suicidal Ideation, Homicidal Ideation, Delusions Past Family Social History Allergies: Coded Allergies: Codeine (Verified Allergy, Severe, Itching, 04/30/17) Past Medical History HTN HLD PVD COPD Past Surgical History Bilateral femoral bypass Reported Medications Reported Meds & Active Scripts Active Cipro (Ciprofloxacin HCl) 500 Mg Tab 500 Mg PO BID Lortab (Hydrocodone-Acetaminophen) 5-325 Mg Tab 1 Tab PO Q4H PRN Do not take this medicine if you will drive a car or use a machine, only use it when resting at home. Carafate (Sucralfate) 1 Gm Tab 1 Gm PO ACHS Mucinex ER 12 HR (Guaifenesin) 600 Mg Kaylen 600 Mg PO BID Reported Aspirin 325 Mg Tab 325 Mg PO DAILY Albuterol Neb (Albuterol Sulfate) 2.5 Mg/0.5 Ml Neb 2.5 Mg NEB BID Note: The Albuterol Sulfate Inhalation Solution is concentrated and must be diluted. Read complete instructions carefully before using. Amlodipine-Benazepril 2.5-10 Mg Cap 1 Cap PO DAILY Metoprolol Tartrate 50 Mg Tab 50 Mg PO DAILY Pravastatin 20 Mg Tab 20 Mg PO HS Active Ordered Medications Current Medications Medications (Trade) Dose Ordered Sig/Evelyne Route PRN Reason Start Time Stop Time Status Last Admin Dose Admin Sodium Chloride (NS 1000 ml Inj) 1,000 ml @ 75 mls/hr [id number] IV 05/01/17 00:42 05/01/17 00:42 Sodium Chloride (NS Flush) 2 ml UNSCH PRN IV FLUSH FLUSH AFTER USING IV ACCESS 05/01/17 00:45 Sodium Chloride (NS Flush) 2 ml BID IV FLUSH 05/01/17 09:00 Hydrocortisone Sodium Succinate (SoluCORTEF INJ) 50 mg Q6H IV 05/01/17 01:00 05/01/17 02:03 Pantoprazole Sodium 40 mg 40 mg DAILY IV 05/01/17 09:00 Piperacillin Sod/ Tazobactam Sod 100 ml @ 200 mls/hr Q6H IV 05/01/17 05:00 05/01/17 04:17 Pharmacy Profile Note (Vancomycin Consult Pharmacy) 0 ml @ 0 mls/hr UNSCH OTHER 05/01/17 00:45 Miscellaneous Information 1 [id number] XX 05/01/17 00:45 05/01/17 00:45 Chlorhexidine Gluconate (Chlorhexidine 2% Cloth) 3 pack Taper DAILY@04 TOP 05/01/17 04:00 04/27/18 03:59 05/01/17 04:00 Chlorhexidine Gluconate (Chlorhexidine 2% Cloth) 3 pack UNSCH PRN TOP HYGIENIC CARE 05/01/17 00:45 Aspirin (Aspirin) 325 mg DAILY PO 05/01/17 09:00 Acetaminophen/ Hydrocodone Bitart ([place] 5-325 Mg) 1 tab Q4H PRN PO PAIN 05/01/17 01:15 Pravastatin Sodium (Pravachol) 20 mg HS PO 05/01/17 21:00 Family History Noncontributory Social History Tobacco use: Quit many years ago Alcohol use: 4-5 beers a day Illicit drug use: Denies Physical Exam Vital Signs Vital Signs Date Time Temp Pulse Resp B/P Pulse Ox O2 Delivery O2 Flow Rate FiO2 05/01/17 00:57 98 18 100/51 99 Room Air 04/30/17 23:15 106 18 111/60 99 Room Air 04/30/17 22:24 105 22 120/69 98 Room Air 04/30/17 21:14 99 04/30/17 18:30 97.3 99 24 117/63 99 Room Air Physical Exam GENERAL: Well-nourished, well-developed patient. SKIN: Warm and dry. HEAD: Normocephalic. EYES: No scleral icterus. No injection or drainage. NECK: Supple, trachea midline. No JVD or lymphadenopathy. CARDIOVASCULAR: Regular rate and rhythm without murmurs, gallops, or rubs. RESPIRATORY: Breath sounds equal bilaterally. No accessory muscle use. GASTROINTESTINAL: Abdomen soft, non-tender, nondistended. MUSCULOSKELETAL: No cyanosis, or edema. BACK: Nontender without obvious deformity. No CVA tenderness. EXTREMITIES: No clubbing cyanosis or edema Laboratory Laboratory Tests Test 04/30/17 04/30/17 04/30/17 05/01/17 21:05 22:10 22:40 00:05 Prothrombin Time 12.8 Prothromb Time International 1.2 Ratio Activated Partial 28.6 Thromboplast Time White Blood Count 29.4 Red Blood Count 4.24 Hemoglobin 12.4 Hematocrit 38.6 Mean Corpuscular Volume 91.1 Mean Corpuscular Hemoglobin 29.3 Mean Corpuscular Hemoglobin 32.2 Concent Red Cell Distribution Width 15.5 Platelet Count 594 Mean Platelet Volume 6.8 Neutrophils (%) (Auto) 88.9 Lymphocytes (%) (Auto) 5.8 Monocytes (%) (Auto) 4.8 Eosinophils (%) (Auto) 0.1 Basophils (%) (Auto) 0.4 Neutrophils # (Auto) 26.1 Lymphocytes # (Auto) 1.7 Monocytes # (Auto) 1.4 Eosinophils # (Auto) 0.0 Basophils # (Auto) 0.1 CBC Comment DIFF FINAL Differential Comment Sodium Level 123 Potassium Level 4.8 Chloride Level 91 Carbon Dioxide Level 14.5 Anion Gap 18 Blood Urea Nitrogen 8 Creatinine 0.56 Estimat Glomerular Filtration 146 Rate Random Glucose 75 Calcium Level 8.2 Total Bilirubin 0.4 Aspartate Amino Transf 56 (AST/SGOT) Alanine Aminotransferase 41 (ALT/SGPT) Alkaline Phosphatase 183 Total Creatine Kinase 84 Troponin I 0.06 Total Protein 7.4 Albumin 1.8 Lipase 79 Lactic Acid Level 1.8 Urine Color YELLOW Urine Turbidity CLOUDY Urine pH 5.5 Urine Specific [place] 1.011 Urine Protein 30 Urine Glucose (UA) NEG Urine Ketones NEG Urine Occult Blood MOD Urine Nitrite POS Urine Bilirubin NEG Urine Urobilinogen LESS THAN 2.0 Urine Leukocyte Esterase LARGE Urine RBC 158 Urine WBC Urine WBC Clumps MANY Urine Squamous Epithelial 1 Cells Urine Bacteria MANY Microscopic Urinalysis Comment CULTURE INDICATED Date/Time Procedure Status Source Growth 05/01/17 00:05 Urine Culture Received Urine Clean Catch Pending 04/30/17 22:40 Aerobic Blood Culture Received Blood Peripheral Pending 04/30/17 22:40 Anaerobic Blood Culture Received Blood Peripheral Pending Result Diagram: 04/30/17210404/30/170 Imaging Last 24 hours Impressions Chest X-Ray 04/30/172034 Signed Impressions: Service Date/Time: Sunday, April 30, 2017 20:48 - CONCLUSION: Focal right upper lobe opacity, mass and localized infiltrate both in the differential. CT the chest recommended, preferably with intravenous contrast. Unchanged elevation of the left hemidiaphragm. Hi Kirkpatrick MD Abdomen/Pelvis CT 04/30/172034 Signed Impressions: Service Date/Time: Sunday, April 30, 2017 21:31 - CONCLUSION: 1. Subacute appearing right perinephric hematomas. Please see above. 2. Large heterogeneous stone in the right renal pelvis. Right ureteral stent present. There is moderate to severe hydronephrosis, similar to before. 3. Persistent bladder stone, appears to be intramural. There is air in the wall focally adjacent to the stone and also air in the lumen. There could be a colovesical fistula. Sigmoid colon diverticulosis present but no acute inflammatory changes are seen. 4. Atherosclerosis of the abdominal aorta. 5. Mild atelectasis and small effusion of the visualized right lung base. Hi Kirkpatrick MD Assessment and Plan Assessment and Plan Urosepsis - Obstructive hydronephrosis - Broad spectrum antibiotics - Pancultures - De-escalate per sensitivity - Aggressive IV fluid hydration Hyponatremia - Chronic - Likely due to chronic beer consumption - Sodium level in January 2017 at 122 - IV hydration with normal saline Obstructive hydronephrosis - Urology consult History of hypertension - Hold home antihypertensive meds due to borderline blood pressure and sepsis - Resume when hemodynamically stable COPD - No exacerbation - No indication for steroids - DuoNeb's when necessary Atypical chest pain - Follow-up trend of troponins - First troponin negative DVT GI prophylaxis - Teds SCDs - Hold pharmacological DVT prophylaxis due to perinephritic hematoma's on the CT - Start when okay by urology - IV Pepcid Critical Care: The total critical care time was 36 minutes. Time to perform other separately billable procedures was not included in the critical care time. Adeel Jama MD May 01, 2017 01:44
[2017-05-01] MEDS: HYDROCORTISONE SOD SUCCINATE 100 MG VIAL IV SCH ×4 (02:03→17:18)
[2017-05-01] MEDS: CHLORHEXIDINE GLUCONATE 2 % 1 PACK (2 CLOTHS) TOP SCH (04:00)
[2017-05-01] MEDS: RESP: ALBUTEROL 2.5 MG/IPRATROPIUM 0.5 MG NEB (SCH) INH ×4 (04:03→20:40)
[2017-05-01] MEDS: PIPERACIL-TAZO 4.5 GM PREMIX 100 ML IV SCH ×4 (04:17→23:17)
[2017-05-01 04:53] LABS: AUTOMATED NEUTROPHIL # 18.9 TH/MM3 (1.8-7.7); BASOPHIL % 0.1 % (0.0-2.0); EOSINOPHIL % 0.1 % (0.0-4.0); LYMPH % 3.5 % (9.0-44.0); LYMPHOCYTE # 0.7 TH/MM3 (1.0-4.8); MEAN CELL VOLUME 90.1 FL (80.0-100.0); MEAN CORPUSCULAR HEMOGLOBIN 28.9 PG (27.0-34.0); MONO % 4.6 % (0.0-8.0); NEUT % 91.7 % (16.0-70.0); PLATELET COUNT 549 TH/MM3 (150-450); RED BLOOD COUNT 3.33 MIL/MM3 (4.50-5.90); RED CELL DISTRIBUTION WIDTH 14.9 % (11.6-17.2); WHITE BLOOD COUNT 20.6 TH/MM3 (4.0-11.0)
[2017-05-01 05:04] LABS: HEMO FLAGS AUTO DIFF
[2017-05-01 05:13] LABS: ALKALINE PHOSPHATASE 128 U/L (45-117); ALT (GPT) 25 U/L (12-78); ANION GAP 13 MEQ/L (5-15); AST (GOT) 18 U/L (15-37); BICARBONATE 19.2 MEQ/L (21.0-32.0); BLOOD UREA NITROGEN 9 MG/DL (7-18); CHLORIDE 98 MEQ/L (98-107); GLOMERULAR FILTRATION RATE 170 ML/MIN (>89); POTASSIUM 3.9 MEQ/L (3.5-5.1); SODIUM (NA) 130 MEQ/L (136-145); TOTAL BILIRUBIN ADULT 0.4 MG/DL (0.2-1.0)
[2017-05-01 05:59] LABS: BANDS 1 % (0-6); EOSINOPHILS 1 % (0-4); METAMYELOCYTES 1 % (0-1); MYELOCYTES 1 % (0-0); PLATELET ESTIMATE SMEAR HIGH (NORMAL); PLATELET MORPHOLOGY NORMAL (NORMAL); POLYS (SEG NEUTROPHILS) 89 % (16-70); SCAN/DIFF FINAL DIFF MANUAL; WBC DIFF SAMPLE 100
[2017-05-01 06:08] LABS: BLOOD GAS BASE EXCESS -6.5 mmol/L (-2-2); BLOOD GAS CARBOXYHEMOGLOBIN 1.4 % (0-4); BLOOD GAS HCO3 17 mmol/L (22-26); BLOOD GAS O2 HGB SATURATION 92 % (90-100); BLOOD GAS OXYGEN CONTENT 13.3 Vol % (12.0-20.0); BLOOD GAS PCO2 28 mmHg (38-42); BLOOD GAS PO2 78 mmHg (61-120); BLOOD GAS TOTAL HGB 10.3 G/DL (12.0-16.0); TEMP CORR TO 98.6
[2017-05-01 06:09] LABS: CRITICAL VALUE NO; DRAW SITE LT BRACHIAL; LITER FLOW 2 L/M; NUMBER OF ARTERIAL PUNCTURES 2; OXYGEN DEVICE NASAL CANNULA; STAT NO; ULNAR PULSE PRESENT
--- NOTE | 2017-05-01 07:56 | EKG ---
Date Performed: 04/30/2017 Time Performed: 22:11:59 PTAGE: 66 years EKG: SINUS TACHYCARDIA POSSIBLE LEFT ATRIAL ENLARGEMENT POSSIBLE RIGHT VENTRICULAR CONDUCTION DE LAY LEFT ANTERIOR FASCICULAR BLOCK ANTEROSEPTAL MYOCARDIAL INFARCTION ACUTE VA NO PREVIOUS TRACING DOCTOR: Wyatt Barakat Interpretating Date/Time 05/01/2017 07:54:18
[2017-05-01] MEDS ORDERED: PILL SPLITTER OTHER PRN (08:45)
[2017-05-01] MEDS: SODIUM CHLORIDE 0.9% FLUSH 10 ML FLUSH IV FLUSH SCH ×2 (08:51→20:27)
[2017-05-01] MEDS: METOPROLOL TARTRATE 25 MG TAB PO SCH ×2 (08:51→20:27)
[2017-05-01] MEDS: ASPIRIN 81 MG CHEW TAB PO SCH (08:51)
[2017-05-01] MEDS: PANTOPRAZOLE SODIUM 40 MG VIAL IV SCH (08:51)
[2017-05-01] MEDS ORDERED: ASPIRIN 325 MG TAB PO SCH (09:00)
[2017-05-01 09:15] LABS: HDL CHOLESTEROL 20.4 MG/DL (40.0-60.0)
--- NOTE | 2017-05-01 09:26 | MB ---
cc: RAYNA LOCKHART M.D. DATE OF CONSULTATION: 05/01/2017 REASON FOR CONSULTATION Evaluation of abnormal EKG and abnormal troponin. HISTORY OF PRESENT ILLNESS Kelton Lehman is a 66-year-old man previously known to me. I saw him once in the office November 10, 2016. The patient has known atherosclerotic disease. He was a former heavy smoker but has quit. He has established peripheral arterial disease with an aortobifemoral operation in [place] [address] Kraft. At that time the infrarenal and iliac arteries were totally occluded. The left renal artery had a greater than 50% stenosis. At the time of seeing the patient he had signs and symptoms of COPD with marked dyspnea on exertion and regular use of a nebulizer which improved his symptoms. He had some pressure in his chest that was infrequent. The patient was ordered to have a nuclear stress test and echocardiogram Doppler study. The patient cancelled both tests and did not come back for follow-up. He is admitted now with a problem related to kidney stones. He has had a ureteral stent. He has had lithotripsy. He has an obstructive hydronephrosis. He came in with markedly elevated white count and pain in the flank and is receiving IV antibiotics. The patient denies any chest pain or sepsis, says that his lungs hurt when he takes a deep breath sometimes. He does not have any classical anginal symptoms and no history that fits with him having had a myocardial infarction which is suggested by the EKG. PAST MEDICAL HISTORY 1. Significant alcohol use. He admits to three beers a day. 2. Coronary artery disease suspected. 3. COPD. 4. Type 2 diabetes. 5. Hyperlipidemia. 6. Hypertension. 7. Old VT 30 years ago. 8. Peripheral arterial disease. 9. Rotator cuff of shoulder. 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 PAST SURGICAL HISTORY Aortobifemoral bypass January 2011. MEDICATIONS Medications prior to admission include: 1. Aspirin 325 mg. 2. Pravastatin 20 mg. 3. He has not been taking any of his amlodipine, benazepril or Toprol blood pressure medicines. 4. He uses an albuterol nebulizer machine. ALLERGIES CODEINE. FAMILY HISTORY Positive for CHF in siblings, hypertension in siblings, lung cancer in his mother, pneumonia in his father who is . SOCIAL HISTORY He smoked from age 8 to age 66. 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 Drinks beer daily. PHYSICAL EXAMINATION GENERAL: A very thin white male who does not appear to be in acute distress. VITAL SIGNS: The vital signs are charted. HEENT: Exam unremarkable. NECK: No JVD. No bruits. CHEST: Diminished breath sounds. CARDIAC: S1, S2, with a loud gallop. Regular rate and rhythm. I do not hear any murmurs. ABDOMEN: Mild tenderness. EXTREMITIES: No clubbing, cyanosis or edema. I cannot feel a right radial pulse. I can palpate a left radial pulse that is weak. Femoral pulses which are grafts actually are strong. Pedal pulses are weak to non-existent. EKG His EKG shows sinus rhythm with an anteroseptal VT, age indeterminate, possibly acute. These changes are new from the EKG from my office in October. IMPRESSION This is a 66-year-old man with known extensive vascular disease. He has a previous aortobifemoral bypass. He has an absent right radial artery pulse. He has an EKG showing a new anteroseptal VT. The timing of when this occurred is unclear. Troponin is 0.06 which is just slightly out of normal range and the troponin curve is flat. This may suggest an VT that might have occurred has been more than a week ago. He has a markedly elevated white count which is improving. He is on antibiotics. PLAN I am going to order a 2-D echo Doppler study to check his LV function. I am going to reduce his aspirin to 81 mg plain daily, re-add beta aden, metoprolol 12.5 b.i.d. and start low dose because of the low blood pressure. Further therapy to be determined. I am probably going to hold off on doing any heart cath this admission in view of the perinephric hematoma. MD LEENA Butt/AMY /8:42 AM /9:01 AM
[2017-05-01] MEDS: ACETAMINOPHEN/HYDROcodone 325 MG/5 MG TAB PO PRN ×3 (10:04→21:17)
--- NOTE | 2017-05-01 10:26 | EKG ---
Date Performed: 05/01/2017 Time Performed: 09:50:11 PTAGE: 66 years EKG: Sinus rhythm POSSIBLE LEFT ATRIAL ENLARGEMENT POSSIBLE RIGHT VENTRICULAR CONDUCTION DELAY LEFT ANTERIOR FASCICULA R BLOCK INFERIOR MYOCARDIAL INFARCTION , OF INDETERMINATE AGE ANTEROSEPTAL MYOCARDIAL INFARCTION , LA OBABLY RECENT ACUTE [place] NO SIGNIFICANT CHANGE FROM PRIOR ELECTROCARDIOGRAM. PREVIOUS TRACING : 04/30/2017 22.11 DOCTOR: Wyatt Barakat Interpretating Date/Time 05/01/2017 10:25:51
[2017-05-01 11:25] LABS: HEMATOCRIT 25.6 % (39.0-51.0); REVIEW FLAG FINAL
[2017-05-01] MEDS: TAMSULOSIN HCL 0.4 MG CAP PO SCH (12:19)
[2017-05-01] MEDS: VANCOMYCIN INJ 1,250 MG in SODIUM CHLOR 0.9% 250 ML INJ 250 ML IV SCH (12:20)
--- NOTE | 2017-05-01 13:02 | MB ---
cc: NEVILLE TONG MD DATE OF CONSULTATION 05/01/2017 REASON FOR CONSULTATION 1. Right perinephric hematoma. 2. Right flank pain 3. History of right UPJ stone status post cystoscopy, stent placement and ESWL 4. UTI HISTORY OF PRESENT ILLNESS The patient is a 66-year-old male with a history of kidney stones who underwent a cystoscopy, stent placed by Dr. Herman with a subsequent he ESWL by Dr. Coates in February for a right UPJ stone who presented to the emergency department yesterday evening with complaints of right flank pain, dysuria, cloudy urine and chest pain. The patient said he has had this right flank pain off and on since he has had the surgery two months ago, but came to a head last night when it was 08/28. He called Dr. Herman's office and yesterday afternoon and was told to come to the ER due to his worsening flank pain. In the ER, he had a CT of the abdomen and pelvis without contrast done which showed multiple right perinephric hematomas as well as a large stone in the right renal pelvis and the patient was also found to have white count of 29,000. He was subsequently admitted to the ICU and urology was consulted for these findings. Currently the patient still complains of right flank pain, but it is improved with IV pain medicine. He does feel lightheaded and dizzy the last couple of days as well and felt like he was going to pass out. He last saw Dr. Herman a few weeks ago who recommended leaving the stent in place due to the recurrent infection that he was having. The patient takes aspirin 325 mg daily for his significant heart disease. He does feel achy. He is urinating better, but he is not feeling he is emptying his bladder completely. He denies hematuria, urgency or frequency at this time. REVIEW OF SYSTEMS See HPI, otherwise a 14 point review of systems is negative. ALLERGIES CODEINE PAST MEDICAL HISTORY Significant for: 1. Kidney stones 2. Hypertension 3. Hyperlipidemia 4. Peripheral vascular disease 5. COPD 6. Urinary tract infections PAST SURGICAL HISTORY 1. He has a bilateral femoral bypass. 1. He had an ESWL. MEDICATIONS Home medications include: 1. Aspirin 325 mg daily 1. Albuterol nebulizer 2. Metoprolol 50 mg p.o. daily 3. Pravastatin 20 mg p.o. daily FAMILY HISTORY Negative for urolithiasis, negative for prostate cancer. SOCIAL HISTORY A history of tobacco use. Drinks four to five beers a day. Denies illicit drug use. PHYSICAL EXAMINATION VITAL SIGNS: Temperature 98, pulse 82, respiratory rate 17, blood pressure 112/57, sating 100% on room air. GENERAL: He is alert and oriented times x3 in no apparent distress, pleasant and cooperative gentleman who appears older than his stated age. HEAD: Normocephalic, atraumatic. EYES: No scleral icterus. Extraocular muscles intact. SKIN: No ulcers or rashes. Mucous membranes moist and pink. LUNGS: Nonlabored respirations. No wheezes, rales or rhonchi. HEART: Regular rate and rhythm. No murmur, gallops or rubs. ABDOMEN: Soft, nontender, and nondistended. Positive bowel sounds. The bladder appears to be palpable. GENITOURINARY: His penis is circumcised. Testes are descended bilaterally, normal size and consistency without mass. EXTREMITIES: Nontender. No clubbing, cyanosis, edema. PSYCH: Normal affect. NEUROLOGIC: Cranial nerves II-XII intact. Strength 05/05 in all four extremities. LABORATORY DATA The most recent hemoglobin is 8.5 down from 12.4. White count is 20.69 back at 25.6, platelet count 549. Chemistry sodium 130, potassium 3.9 chloride 98, bicarb 19.2, BUN 9, creatinine 0.49, Alk phos 128. Urine, specific gravity 1.01, pH of 5.5, moderate blood, positive nitrates, large leukocyte esterase, many bacteria. Culture is currently pending. IMAGING STUDIES CT of the abdomen and pelvis without contrast. Images reviewed, agree with radiologist report. The patient has a large heterogeneous stone in the right renal pelvis with a right ureteral stent placement with mild to moderate hydronephrosis, multiple subacute perinephric hematomas. ASSESSMENT AND PLAN The patient is a 66-year-old male with history of kidney stones who presents with right flank pain and dysuria who was found to have some perinephric hematomas with residual right renal stone and a UTI. PLAN Recommend continuing IV antibiotics pending cultures. We will manage the perinephric hematoma conservatively for now, follow H&H and transfuse as needed. Keep him on bedrest. If the patient continues to bleed or worsen, he may need to go to interventional radiology for possible embolization. It is unclear whether the bleed, the perinephric hematoma, is from his ESWL from two months ago which would be very unusual or if he has an underlying renal mass that has bled on that side. He would need repeat imaging in three to four weeks with IV contrast to further evaluate that kidney. However if his symptoms do change in the next couple of days with his clinical picture, then he may need a repeat CT with contrast sooner. We will also check a postvoid residuals to make sure that he is emptying his bladder and that he does not need a Arnold catheter. Thank you for this consult. We will follow him with you. MD TYRONE Ortiz/JOVANI /11:57 AM /12:46 PM
[2017-05-01] MEDS ORDERED: ACETAMINOPHEN 1000 MG/100 ML VIAL IV ONE (15:00)
[2017-05-01 16:21] LABS: HEMATOCRIT 30.3 % (39.0-51.0); REVIEW FLAG FINAL
--- NOTE | 2017-05-01 17:02 | ECHRPT ---
Indication: Atherosclerotic heart disease of [place] coronary artery with unstable angina pectoris CONCLUSIONS The left ventricular systolic function is severely reduced with an estimated ejection fraction in th e range of 30-35%. Anteroapical akinesis/ Normal left ventricular size. Wall thickness is measured at the upper limits of normal. Trace mitral valve regurgitation. The pulmonary valve is not well visualized. There is a small pericardial effusion present. BP: 112 / 57 HR: 82 Rhythm: Sinus MEASUREMENTS (Male / Female) Normal Values Technical Quality:Fair 2D ECHO LV Diastolic Diameter PLAX 4.3 cm 4.2 - 5.9 / 3.9 - 5.3 cm LV Systolic Diameter PLAX 3.8 cm IVS Diastolic Thickness 1.0 cm 0.6 - 1.0 / 0.6 - 0.9 cm LVPW Diastolic Thickness 1.0 cm 0.6 - 1.0 / 0.6 - 0.9 cm LV Relative Wall Thickness 0.5 LVOT Diameter 1.9 cm M-MODE Aortic Root Diameter MM 3.3 cm LA Systolic Diameter MM 4.0 cm LA Ao Ratio MM 1.2 AV Cusp Separation MM 2.0 cm DOPPLER AV Peak Velocity 97.7 cm/s AV Peak Gradient 3.8 mmHg LVOT Peak Velocity 84.4 cm/s LVOT Peak Gradient 2.8 mmHg AV Area Cont Eq pk 2.4 cm MR Peak Velocity 330.5 cm/s MR Peak Gradient 43.7 mmHg Mitral E Point Velocity 102.0 cm/s Mitral A Point Velocity 89.8 cm/s Mitral E to A Ratio 1.1 LV E' Lateral Velocity 5.9 cm/s Mitral E to LV E' Lateral Ratio 17.1 LV E' Septal Velocity 4.3 cm/s Mitral E to LV E' Septal Ratio 23.8 PV Peak Velocity 76.0 cm/s PV Peak Gradient 2.3 mmHg FINDINGS LEFT VENTRICLE The left ventricular systolic function is severely reduced with an estimated ejection fraction in th e range of 30-35%. Anteroapical akinesis. Normal left ventricular size. Wall thickness is measured at the upper limits of normal. RIGHT VENTRICLE Normal right ventricular size and systolic function. LEFT ATRIUM The left atrial size is normal. RIGHT ATRIUM The right atrial size is normal. ATRIAL SEPTUM Normal atrial septal thickness without atrial level shunting by limited color doppler interrogation. AORTA The aortic root and proximal ascending aorta are normal in size on limited imaging. MITRAL VALVE Structurally normal mitral valve. Trace mitral valve regurgitation. AORTIC VALVE Trileaflet aortic valve. No aortic valve stenosis or regurgitation. TRICUSPID VALVE Structurally normal tricuspid valve. No tricuspid valve stenosis or regurgitation. PULMONARY VALVE The pulmonary valve is not well visualized. VESSELS The inferior vena cava is normal in size. PERICARDIUM There is a small pericardial effusion present. Beverly Knight MD, FACC (Electronically Signed) Final Date:01 May 2017 17:01
[2017-05-01 19:35] LABS: HEMATOCRIT 27.2 % (39.0-51.0); REVIEW FLAG FINAL
[2017-05-01] MEDS: PRAVASTATIN SOD 20 MG TAB PO SCH (20:27)
[2017-05-02] VITALS (21 sets, daily range): BP systolic 94–131; BP diastolic 57–87; PULSE 79–114; RESP 15–32; TEMP 97.5–98.6; O2SAT 87–100
[2017-05-02] MEDS: VANCOMYCIN INJ 1,250 MG in SODIUM CHLOR 0.9% 250 ML INJ 250 ML IV SCH ×2 (00:13→15:55)
[2017-05-02] MEDS: HYDROCORTISONE SOD SUCCINATE 100 MG VIAL IV SCH ×4 (00:14→20:55)
[2017-05-02] MEDS: ACETAMINOPHEN/HYDROcodone 325 MG/5 MG TAB PO PRN ×3 (00:54→20:56)
[2017-05-02] MEDS: RESP: ALBUTEROL 2.5 MG/IPRATROPIUM 0.5 MG NEB (PRN) INH ×2 (01:37→23:03)
[2017-05-02] MEDS: RESP: ALBUTEROL 2.5 MG/IPRATROPIUM 0.5 MG NEB (SCH) INH ×4 (03:07→19:14)
[2017-05-02] MEDS: SODIUM CHLOR 0.9% 1000 ML INJ 1,000 ML IV SCH (03:22)
[2017-05-02] MEDS: CHLORHEXIDINE GLUCONATE 2 % 1 PACK (2 CLOTHS) TOP SCH (03:28)
[2017-05-02] MEDS ORDERED: METOPROLOL TARTRATE 5 MG/5 ML VIAL IV PUSH ONE (03:30)
[2017-05-02] MEDS ORDERED: ACETAMINOPHEN 1000 MG/100 ML VIAL IV ONE (03:30)
--- NOTE | 2017-05-02 04:24 | RADRPT ---
EXAM DATE/TIME: 05/02/2017 03:40 [facility] COMPARISON: CHEST SINGLE AP, April 30, 2017, 20:48. INDICATIONS : Short of breath. MEDICAL HISTORY : None. SURGICAL HISTORY : None. ENCOUNTER: Subsequent ACUITY: 2 weeks PAIN SCORE: 0/10 LOCATION: Bilateral chest FINDINGS: The previously seen density in the right upper lung overlapping the second rib is not reproduced. The re is however extensive mixed interstitial and alveolar process in both lungs not present previously. Heart and mediastinum are unremarkable for technique. CONCLUSION: Interval development of fairly extensive mixed interstitial and alveolar process in both lungs may re present pulmonary edema. Gisell Magaña MD on May 02, 2017 at 4:20 Board Certified Radiologist. This report was verified electronically.
[2017-05-02 05:43] LABS: BLOOD GAS BASE EXCESS -8.6 mmol/L (-2-2); BLOOD GAS CARBOXYHEMOGLOBIN 1.1 % (0-4); BLOOD GAS HCO3 16 mmol/L (22-26); BLOOD GAS METHEMOGLOBIN 0.9 % (0-2); BLOOD GAS O2 HGB SATURATION 92 % (90-100); BLOOD GAS OXYGEN CONTENT 13.5 Vol % (12.0-20.0); BLOOD GAS PCO2 32 mmHg (38-42); BLOOD GAS PO2 83 mmHg (61-120); BLOOD GAS TOTAL HGB 10.3 G/DL (12.0-16.0); TEMP CORR TO 98.6
[2017-05-02 05:45] LABS: CRITICAL VALUE YES; DRAW SITE LT BRACHIAL; FIO2 40 %; NUMBER OF ARTERIAL PUNCTURES 1; OXYGEN DEVICE BiPAP; STAT NO; ULNAR PULSE PRESENT; VENT SETTINGS IPAP10/EPAP5
[2017-05-02] MEDS: PIPERACIL-TAZO 4.5 GM PREMIX 100 ML IV SCH ×4 (05:45→22:36)
[2017-05-02 07:09] LABS: AUTOMATED NEUTROPHIL # 24.6 TH/MM3 (1.8-7.7); BASOPHIL # 0.1 TH/MM3 (0-0.2); BASOPHIL % 0.3 % (0.0-2.0); HEMATOCRIT 35.6 % (39.0-51.0); LYMPH % 2.3 % (9.0-44.0); LYMPHOCYTE # 0.6 TH/MM3 (1.0-4.8); MEAN CELL VOLUME 91.9 FL (80.0-100.0); MEAN CORPUSCULAR HEMOGLOBIN 29.3 PG (27.0-34.0); MEAN CORPUSCULAR HGB CONC 31.9 % (32.0-36.0); NEUT % 95.4 % (16.0-70.0); PLATELET COUNT 607 TH/MM3 (150-450); RED BLOOD COUNT 3.87 MIL/MM3 (4.50-5.90); RED CELL DISTRIBUTION WIDTH 15.6 % (11.6-17.2); WHITE BLOOD COUNT 25.8 TH/MM3 (4.0-11.0)
[2017-05-02 07:10] LABS: HEMO FLAGS AUTO DIFF
[2017-05-02 07:13] LABS: ALKALINE PHOSPHATASE 132 U/L (45-117); ALT (GPT) 21 U/L (12-78); ANION GAP 13 MEQ/L (5-15); AST (GOT) 16 U/L (15-37); BICARBONATE 19.9 MEQ/L (21.0-32.0); CHLORIDE 98 MEQ/L (98-107); GLOMERULAR FILTRATION RATE 88 ML/MIN (>89); MAGNESIUM 2.1 MG/DL (1.5-2.5); POTASSIUM 4.9 MEQ/L (3.5-5.1); SODIUM (NA) 131 MEQ/L (136-145); TOTAL BILIRUBIN ADULT 0.3 MG/DL (0.2-1.0)
[2017-05-02 07:22] LABS: BLOOD UREA NITROGEN 14 MG/DL (7-18)
[2017-05-02 07:49] LABS: BANDS 10 % (0-6); BURR CELLS 1+ (NORMAL); METAMYELOCYTES 2 % (0-1); MYELOCYTES 2 % (0-0); NEUTROPHIL # MANUAL DIFF 24.5 TH/MM3 (1.8-7.7); PLATELET ESTIMATE SMEAR HIGH (NORMAL); PLATELET MORPHOLOGY ENLARGED (NORMAL); POLYS (SEG NEUTROPHILS) 81 % (16-70); SCAN/DIFF FINAL DIFF MANUAL; WBC DIFF SAMPLE 100
--- NOTE | 2017-05-02 07:57 | EKG ---
Date Performed: 05/02/2017 Time Performed: 02:57:26 PTAGE: 66 years EKG: BASELINE ARTIFACT PRESENT. Sinus tachycardia. Left axis deviation ANTEROSEPTAL INFARCT - POSSIBLY ACUTE Inferior infarct - age undetermined Lateral ST-T changes may be due to myocardia l ischemia Low QRS voltages in limb leads Abnormal ECG COMPARED TO PRIOR ELECTROCARDIOGRAM, Rate has increased and ST elevation is more prominent in lead V2. Clinical correlation suggested. PREVIOUS TRACING : 05/01/2017 09.50 DOCTOR: Wyatt Barakat Interpretating Date/Time 05/02/2017 07:55:10
[2017-05-02] MEDS ORDERED: FUROSEMIDE 40 MG/4 ML VIAL IV PUSH ONE ×2 (08:15→19:00)
--- NOTE | 2017-05-02 08:40 | HHI.CCPN ---
Subjective Remarks/Hospital Course 66-year-old male with a history of hypertension, hyperlipidemia, COPD, kidney stones presents to the emergency department for evaluation of right flank pain and chest pain. The patient states that he has kidney stones on his right side and had a stent placed by Dr. Herman 3 months ago with following lithotripsy. Per patient he never saw any stones pass in his urine after these procedures were done. States that he's been seeing him in the office recently for a recurrent urinary tract infection, finished Cipro one week ago. Over the past 4 days he's had worsening right flank pain and was told to come to the ED if his symptoms ever worsened. He also had for last 2 days multiple episodes of nonbloody nonbilious emesis with nausea. He's had loss of appetite. He states that since last night he's had lower bilateral chest pain intermittently that he describes as "feeling as though my lungs hurt." He denies any shortness of breath, difficulty breathing, lightheadedness, dizziness, fever, chills, diarrhea, constipation, hematuria. States that he does have burning with urination and cloudy urine which has been present for several weeks. He is scheduled to have the urinary stent removed at the end of this month. Subjective: 05/02: Tmax 97.6. Hemoglobin appears stabilized with the last 24 hours. Patient denies any pain, urine output is adequate. Overnight the patient became short of breath, when attempting to get up out of bed to bedside commode. Chest x-ray revealed this a.m., pulmonary edema, diuretic given. Physical therapy has been consulted for strengthening exercises and evaluation. Objective Vital Signs Date Time Temp Pulse Resp B/P Pulse Ox O2 Delivery O2 Flow Rate FiO2 05/02/17 07:26 95 40 05/02/17 06:00 114 05/02/17 04:00 97.7 28 115/72 05/02/17 01:37 Nasal Cannula 2.00 Intake and Output 05/01/17 05/01/17 05/02/17 08:00 16:00 00:00 Intake Total 618 ml 1200 ml 1542 ml Output Total 250 ml 300 ml 2 ml Balance 368 ml 900 ml 1540 ml Result Diagram: 05/02/17 0511 05/02/17 0511 Other Results Laboratory Tests Test 05/02/17 05:29 Blood Gas Puncture Site LT BRACHIAL Blood Gas Patient Temperature 98.6 Blood Gas HCO3 16 mmol/L (22-26) Blood Gas Base Excess -8.6 mmol/L (-2-2) Blood Gas Oxygen Saturation 92 % (90-100) Arterial Blood pH 7.33 (7.380-7.420) Arterial Blood Partial 32 mmHg (38-42) Pressure CO2 Arterial Blood Partial 83 mmHg Pressure O2 (61-120) Arterial Blood Oxygen Content 13.5 Vol % (12.0-20.0) Arterial Blood 1.1 % (0-4) Carboxyhemoglobin Arterial Blood Methemoglobin 0.9 % (0-2) Blood Gas Hemoglobin 10.3 G/DL (12.0-16.0) Oxygen Delivery Device BiPAP Blood Gas Ventilator Setting IPAP10/EPAP5 Blood Gas Inspired Oxygen 40 % Imaging Last Impressions Chest X-Ray 05/02/17 0000 Signed Impressions: Service Date/Time: Tuesday, May 02, 2017 03:40 - CONCLUSION: Interval development of fairly extensive mixed interstitial and alveolar process in both lungs may represent pulmonary edema. Gisell Magaña MD Abdomen/Pelvis CT 04/30/172034 Signed Impressions: Service Date/Time: Sunday, April 30, 2017 21:31 - CONCLUSION: 1. Subacute appearing right perinephric hematomas. Please see above. 2. Large heterogeneous stone in the right renal pelvis. Right ureteral stent present. There is moderate to severe hydronephrosis, similar to before. 3. Persistent bladder stone, appears to be intramural. There is air in the wall focally adjacent to the stone and also air in the lumen. There could be a colovesical fistula. Sigmoid colon diverticulosis present but no acute inflammatory changes are seen. 4. Atherosclerosis of the abdominal aorta. 5. Mild atelectasis and small effusion of the visualized right lung base. Hi Kirkpatrick MD Last 24 hours Impressions Chest X-Ray 04/30/172034 Signed Impressions: Service Date/Time: Sunday, April 30, 2017 20:48 - CONCLUSION: Focal right upper lobe opacity, mass and localized infiltrate both in the differential. CT the chest recommended, preferably with intravenous contrast. Unchanged elevation of the left hemidiaphragm. Hi Kirkpatrick MD Abdomen/Pelvis CT 04/30/172034 Signed Impressions: Service Date/Time: Sunday, April 30, 2017 21:31 - CONCLUSION: 1. Subacute appearing right perinephric hematomas. Please see above. 2. Large heterogeneous stone in the right renal pelvis. Right ureteral stent present. There is moderate to severe hydronephrosis, similar to before. 3. Persistent bladder stone, appears to be intramural. There is air in the wall focally adjacent to the stone and also air in the lumen. There could be a colovesical fistula. Sigmoid colon diverticulosis present but no acute inflammatory changes are seen. 4. Atherosclerosis of the abdominal aorta. 5. Mild atelectasis and small effusion of the visualized right lung base. Hi Kirkpatrick MD Objective Remarks GENERAL: Well-nourished, well-developed patient currently on BiPAP SKIN: Warm and dry. HEAD: Normocephalic. EYES: No scleral icterus. No injection or drainage. NECK: Supple, trachea midline. No JVD or lymphadenopathy. CARDIOVASCULAR: Regular rate and rhythm without murmurs, gallops, or rubs. RESPIRATORY: Breath sounds equal bilaterally. No accessory muscle use. GASTROINTESTINAL: Abdomen soft, non-tender, nondistended. MUSCULOSKELETAL: No cyanosis, or edema. BACK: Nontender without obvious deformity. No CVA tenderness. EXTREMITIES: No clubbing cyanosis or edema NEURO: GCS 15, alert and oriented moves extremities 4 Urinary Catheter: No Vascular Central Line Catheter: No A/P Assessment and Plan Urosepsis - Obstructive hydronephrosis - Broad spectrum antibiotics-vancomycin and Zosyn (day 2) - 05/01 Pancultures-NGTD - De-escalate per sensitivity - IV fluid place to KVO -Check postvoid residuals Hyponatremia - Chronic - Likely due to chronic beer consumption - Sodium level in January 2017 at 122 - Sodium level 131 today from 130 Obstructive hydronephrosis Right perinephric hematoma S/P right UPJ stone status post cystoscopy with stent placement and ESWL (2016) - Urology following-Dr. Ewing -Conservative management-serial H&H monitoring -Check postvoid residual History of hypertension - Hold home antihypertensive meds due to borderline blood pressure and sepsis - Resume when hemodynamically stable COPD Pulmonary edema - No exacerbation - No indication for steroids - DuoNeb's when necessary -Lasix 40 mg IV 1 dose Atypical chest pain - 05/01 troponins .06->.06->.04 - Cardiology following Dr. De Leon -metoprolol 12.5 twice a day, ASA decreased to 81 mg/day -05/01 ECHO EF 3035 percent, small pericardial effusion, anterolateral apical akinesis Alcohol dependency - Ativan 1mg q 4 hr for agitation -Monitor for delirium tremens DVT GI prophylaxis - Teds SCDs - Hold pharmacological DVT prophylaxis due to perinephritic hematoma's on the CT - Start upon approval by urology - TRANG Freire Dispo: Discussed with patient and ASSOCIATE DRAFTER at bedside. Critical Care: This patient remains critically ill with one or more organ systems which are or may become a threat to life. I have spent in excess of 30 minutes discontinuously in the care and management of this patient. This time is exclusive of procedures, and includes, but is not limited to, evaluation of the patient, review of the medical record, discussions with family, consultants, nursing staff, or respiratory therapy, and documentation in the medical record. Physician Nicolle Vides MD May 02, 2017 08:40
[2017-05-02] MEDS: TAMSULOSIN HCL 0.4 MG CAP PO SCH (08:56)
[2017-05-02] MEDS: ASPIRIN 81 MG CHEW TAB PO SCH (08:56)
[2017-05-02] MEDS: PANTOPRAZOLE SODIUM 40 MG VIAL IV SCH (08:56)
[2017-05-02] MEDS: METOPROLOL TARTRATE 25 MG TAB PO SCH ×2 (08:57→20:55)
[2017-05-02] MEDS: SODIUM CHLORIDE 0.9% FLUSH 10 ML FLUSH IV FLUSH SCH ×2 (08:57→20:55)
[2017-05-02] MEDS ORDERED: PHARMACY ORDERED LAB ONE (11:45)
--- NOTE | 2017-05-02 12:11 | PD.CARD.PN ---
Subjective Subjective Remarks no angina Objective Medications Current Medications Medications (Trade) Dose Ordered Sig/Evelyne Route Start Time Stop Time Status Last Admin (NS 1000 ml Inj) 1,000 ml @ 30 mls/hr Q24H IV 05/01/17 00:42 05/02/17 03:22 (NS Flush) 2 ml UNSCH PRN IV FLUSH 05/01/17 00:45 (NS Flush) 2 ml BID IV FLUSH 05/01/17 09:00 05/01/17 20:27 (SoluCORTEF INJ) 50 mg Q6H IV 05/01/17 01:00 05/02/17 05:46 Pantoprazole Sodium 40 mg 40 mg DAILY IV 05/01/17 09:00 05/02/17 08:56 Piperacillin Sod/ Tazobactam Sod 100 ml @ 200 mls/hr Q6H IV 05/01/17 05:00 05/02/17 05:45 (Vancomycin Consult Pharmacy) 0 ml @ 0 mls/hr UNSCH OTHER 05/01/17 00:45 Miscellaneous Information 1 Q361D XX 05/01/17 00:45 05/01/17 00:45 (Chlorhexidine 2% Cloth) 3 pack Taper DAILY@04 TOP 05/01/17 04:00 04/27/18 03:59 05/02/17 03:28 (Chlorhexidine 2% Cloth) 3 pack UNSCH PRN TOP 05/01/17 00:45 ([place] 5-325 Mg) 1 tab Q4H PRN PO 05/01/17 01:15 05/02/17 05:45 (Pravachol) 20 mg HS PO 05/01/17 21:00 05/01/17 20:27 (Aspirin Chew) 81 mg DAILY PO 05/01/17 09:00 05/02/17 08:56 (Lopressor) 12.5 mg Q12HR PO 05/01/17 09:00 05/02/17 08:57 Miscellaneous 1 ea 1 ea UNSCH PRN OTHER 05/01/17 08:45 (Vancomycin Inj/ NS 250 ml Inj) 262.5 ml @ 250 mls/hr Q12H IV 05/01/17 12:00 05/02/17 00:13 (Flomax) 0.4 mg DAILY PO 05/01/17 12:00 05/02/17 08:56 Vital Signs / I&O Vital Signs Date Time Temp Pulse Resp B/P Pulse Ox O2 Delivery O2 Flow Rate FiO2 05/02/17 11:40 100 40 05/02/17 10:00 91 05/02/17 08:22 91 Nasal Cannula 3.00 05/02/17 08:00 91 05/02/17 08:00 98.0 82 15 102/61 95 05/02/17 07:26 95 40 05/02/17 06:00 114 05/02/17 04:00 97.7 103 28 115/72 97 05/02/17 04:00 103 05/02/17 03:28 95 40 05/02/17 02:00 82 05/02/17 01:37 93 Nasal Cannula 2.00 05/02/17 00:00 97.5 79 21 94/57 87 05/02/17 00:00 79 05/01/17 22:00 84 05/01/17 20:40 93 21 05/01/17 20:00 97.6 83 22 93/56 91 05/01/17 20:00 83 05/01/17 18:00 93 05/01/17 16:00 100 05/01/17 16:00 97.9 98 25 94/51 100 05/01/17 14:00 99 I/O 05/01/17 05/01/17 05/01/17 05/02/17 05/02/17 05/02/17 07:00 15:00 23:00 07:00 15:00 23:00 Intake Total 618 ml 1200 ml 1542 ml 686 ml Output Total 250 ml 300 ml 2 ml 2 ml Balance 368 ml 900 ml 1540 ml 684 ml Intake Oral 600 ml 840 ml 100 ml IV Total 618 ml 600 ml 586 ml TPN/PPN 702 ml Output Urine Total 250 ml 300 ml Stool Total 0 ml 2 ml 2 ml # Voids 1 3 # Bowel Movements 2 Physical Exam On BIpap Not in acute distress Chest: diminished BS CV [id number] RRR No edema Laboratory Laboratory Tests Test 05/01/17 05/01/17 05/02/17 05/02/17 15:53 19:09 05:11 05:29 Hemoglobin 9.9 GM/DL 8.9 GM/DL 11.3 GM/DL Hematocrit 30.3 % 27.2 % 35.6 % White Blood Count 25.8 TH/MM3 Red Blood Count 3.87 MIL/MM3 Mean Corpuscular Volume 91.9 FL Mean Corpuscular Hemoglobin 29.3 PG Mean Corpuscular Hemoglobin 31.9 % Concent Red Cell Distribution Width 15.6 % Platelet Count 607 TH/MM3 Mean Platelet Volume 7.2 FL Neutrophils (%) (Auto) 95.4 % Lymphocytes (%) (Auto) 2.3 % Monocytes (%) (Auto) 2.0 % Eosinophils (%) (Auto) 0.0 % Basophils (%) (Auto) 0.3 % Neutrophils # (Auto) 24.6 TH/MM3 Lymphocytes # (Auto) 0.6 TH/MM3 Monocytes # (Auto) 0.5 TH/MM3 Eosinophils # (Auto) 0.0 TH/MM3 Basophils # (Auto) 0.1 TH/MM3 CBC Comment AUTO DIFF Differential Total Cells 100 Counted Neutrophils % (Manual) 81 % Band Neutrophils % 10 % Lymphocytes % 3 % Monocytes % 2 % Neutrophils # (Manual) 24.5 TH/MM3 Metamyelocytes 2 % Myelocytes 2 % Differential Comment FINAL DIFF MANUAL Platelet Estimate HIGH Platelet Morphology Comment ENLARGED [place] Cells 1+ Hematology Comments Sodium Level 131 MEQ/L Potassium Level 4.9 MEQ/L Chloride Level 98 MEQ/L Carbon Dioxide Level 19.9 MEQ/L Anion Gap 13 MEQ/L Blood Urea Nitrogen 14 MG/DL Creatinine 0.87 MG/DL Estimat Glomerular Filtration 88 ML/MIN Rate Random Glucose 182 MG/DL Calcium Level 7.7 MG/DL Phosphorus Level 4.7 MG/DL Magnesium Level 2.1 MG/DL Total Bilirubin 0.3 MG/DL Aspartate Amino Transf 16 U/L (AST/SGOT) Alanine Aminotransferase 21 U/L (ALT/SGPT) Alkaline Phosphatase 132 U/L Troponin I 0.04 NG/ML Total Protein 5.8 GM/DL Albumin 1.8 GM/DL Blood Gas Puncture Site LT BRACHIAL Blood Gas Patient Temperature 98.6 Blood Gas HCO3 16 mmol/L Blood Gas Base Excess -8.6 mmol/L Blood Gas Oxygen Saturation 92 % Arterial Blood pH 7.33 Arterial Blood Partial 32 mmHg Pressure CO2 Arterial Blood Partial 83 mmHg Pressure O2 Arterial Blood Oxygen Content 13.5 Vol % Arterial Blood 1.1 % Carboxyhemoglobin Arterial Blood Methemoglobin 0.9 % Blood Gas Hemoglobin 10.3 G/DL Oxygen Delivery Device BiPAP Blood Gas Ventilator Setting IPAP10/EPAP5 Blood Gas Inspired Oxygen 40 % Imaging Last 48 hours Impressions Chest X-Ray 05/02/17 0000 Signed Impressions: Service Date/Time: Tuesday, May 02, 2017 03:40 - CONCLUSION: Interval development of fairly extensive mixed interstitial and alveolar process in both lungs may represent pulmonary edema. Gisell Magaña MD Chest X-Ray 04/30/172034 Signed Impressions: Service Date/Time: Sunday, April 30, 2017 20:48 - CONCLUSION: Focal right upper lobe opacity, mass and localized infiltrate both in the differential. CT the chest recommended, preferably with intravenous contrast. Unchanged elevation of the left hemidiaphragm. Hi Kirkpatrick MD Abdomen/Pelvis CT 04/30/172034 Signed Impressions: Service Date/Time: Sunday, April 30, 2017 21:31 - CONCLUSION: 1. Subacute appearing right perinephric hematomas. Please see above. 2. Large heterogeneous stone in the right renal pelvis. Right ureteral stent present. There is moderate to severe hydronephrosis, similar to before. 3. Persistent bladder stone, appears to be intramural. There is air in the wall focally adjacent to the stone and also air in the lumen. There could be a colovesical fistula. Sigmoid colon diverticulosis present but no acute inflammatory changes are seen. 4. Atherosclerosis of the abdominal aorta. 5. Mild atelectasis and small effusion of the visualized right lung base. Hi Kirkpatrick MD Assessment and Plan Problem List: (1) Ischemic cardiomyopathy Assessment and Plan: EF 30-35% (2) Anteroapical myocardial infarction Assessment and Plan: Timing unknown. At least 1 week PORTFOLIO LEAD (3) Acute systolic (congestive) heart failure Assessment and Plan: suspect due to IV fluids. Repeat furosemide IV tonight (4) Peripheral arterial occlusive disease Assessment and Plan: s/p aortobifem bypass. Absent right radial pulse (5) COPD (chronic obstructive pulmonary disease) Chao De Leon MD May 02, 2017 12:11
--- NOTE | 2017-05-02 16:39 | HHI.PR ---
Subjective Patient symptoms today having breathing issues since last night. Diuresing well. Flank pain improved. Denies hematuria. Denies fevers. Bladder Scan showed 240 ml. Objective Vital Signs Vital Signs Date Time Temp Pulse Resp B/P Pulse Ox O2 Delivery O2 Flow Rate FiO2 05/02/17 14:02 92 Venturi Mask 50 05/02/17 14:00 91 05/02/17 12:00 91 05/02/17 12:00 98.5 93 32 131/87 97 05/02/17 11:40 100 40 05/02/17 10:00 91 05/02/17 08:22 91 Nasal Cannula 3.00 05/02/17 08:00 91 05/02/17 08:00 98.0 82 15 102/61 95 05/02/17 07:26 95 40 05/02/17 06:00 114 05/02/17 04:00 97.7 103 28 115/72 97 05/02/17 04:00 103 05/02/17 03:28 95 40 05/02/17 02:00 82 05/02/17 01:37 93 Nasal Cannula 2.00 05/02/17 00:00 97.5 79 21 94/57 87 05/02/17 00:00 79 05/01/17 22:00 84 05/01/17 20:40 93 21 05/01/17 20:00 97.6 83 22 93/56 91 05/01/17 20:00 83 05/01/17 18:00 93 Intake & Output 05/02/17 05/02/17 07:00 19:00 Intake Total 1628 ml 553 ml Output Total 3 ml 1300 ml Balance 1625 ml -747 ml Intake Oral 340 ml 240 ml IV Total 586 ml 313 ml TPN/PPN 702 ml Output Urine Total 1300 ml Stool Total 3 ml # Voids 4 # Bowel Movements 1 Result Diagram: 05/02/17 0511 05/02/17 0511 Imaging Last 24 hours Impressions Chest X-Ray 05/02/17 0000 Signed Impressions: Service Date/Time: Tuesday, May 02, 2017 03:40 - CONCLUSION: Interval development of fairly extensive mixed interstitial and alveolar process in both lungs may represent pulmonary edema. Gisell Magaña MD Objective Remarks NAD. abd soft, No CVAT Medications and IVs Current Medications Medications (Trade) Dose Ordered Sig/Evelyne Route Start Time Stop Time Status Last Admin (NS 1000 ml Inj) 1,000 ml @ 30 mls/hr Q24H IV 05/01/17 00:42 05/02/17 03:22 (NS Flush) 2 ml UNSCH PRN IV FLUSH 05/01/17 00:45 (NS Flush) 2 ml BID IV FLUSH 05/01/17 09:00 05/01/17 20:27 (SoluCORTEF INJ) 50 mg Q6H IV 05/01/17 01:00 05/02/17 13:09 Pantoprazole Sodium 40 mg 40 mg DAILY IV 05/01/17 09:00 05/02/17 08:56 Piperacillin Sod/ Tazobactam Sod 100 ml @ 200 mls/hr Q6H IV 05/01/17 05:00 05/02/17 13:09 (Vancomycin Consult Pharmacy) 0 ml @ 0 mls/hr UNSCH OTHER 05/01/17 00:45 Miscellaneous Information 1 Q361D XX 05/01/17 00:45 05/01/17 00:45 (Chlorhexidine 2% Cloth) 3 pack Taper DAILY@04 TOP 05/01/17 04:00 04/27/18 03:59 05/02/17 03:28 (Chlorhexidine 2% Cloth) 3 pack UNSCH PRN TOP 05/01/17 00:45 ([place] 5-325 Mg) 1 tab Q4H PRN PO 05/01/17 01:15 05/02/17 05:45 (Pravachol) 20 mg HS PO 05/01/17 21:00 05/01/17 20:27 (Aspirin Chew) 81 mg DAILY PO 05/01/17 09:00 05/02/17 08:56 (Lopressor) 12.5 mg Q12HR PO 05/01/17 09:00 05/02/17 08:57 Miscellaneous 1 ea 1 ea UNSCH PRN OTHER 05/01/17 08:45 (Vancomycin Inj/ NS 250 ml Inj) 262.5 ml @ 250 mls/hr Q12H IV 05/01/17 12:00 Hold 05/02/17 15:55 (Flomax) 0.4 mg DAILY PO 05/01/17 12:00 05/02/17 08:56 (Lasix Inj) 40 mg ONCE ONCE IV PUSH 05/02/17 19:00 05/02/17 19:01 Assessment and Plan Problem List: (1) Nephrolithiasis ICD Code: N20.0 Status: Acute (2) Hydronephrosis ICD Code: N13.30 Status: Acute (3) Renal hematoma ICD Code: S37.019A Status: Acute Assessment and Plan Hgb stable. Ok to come off bed rest. continue antibiotics until cultures are final. PVRs acceptable. Continue Flomax F/U as outpatient with Dr. Herman for treatment of stones. Rg Ewing MD May 02, 2017 16:39
[2017-05-02] MEDS: PRAVASTATIN SOD 20 MG TAB PO SCH (20:55)
[2017-05-03] VITALS (15 sets, daily range): BP systolic 109–132; BP diastolic 58–72; PULSE 76–103; RESP 16–25; TEMP 97.5–98.5; O2SAT 92–99
[2017-05-03] MEDS: SODIUM CHLOR 0.9% 1000 ML INJ 1,000 ML IV SCH (02:24)
[2017-05-03] MEDS: HYDROCORTISONE SOD SUCCINATE 100 MG VIAL IV SCH ×4 (02:24→18:11)
[2017-05-03] MEDS: ACETAMINOPHEN/HYDROcodone 325 MG/5 MG TAB PO PRN (02:24)
[2017-05-03] MEDS: RESP: ALBUTEROL 2.5 MG/IPRATROPIUM 0.5 MG NEB (SCH) INH ×4 (03:16→20:37)
[2017-05-03] MEDS: CHLORHEXIDINE GLUCONATE 2 % 1 PACK (2 CLOTHS) TOP SCH (04:00)
--- NOTE | 2017-05-03 04:48 | RADRPT ---
EXAM DATE/TIME: 05/03/2017 02:23 [place] COMPARISON: CHEST SINGLE AP, May 02, 2017, 3:40. INDICATIONS : Shortness of breath, possible pulmonary disease. MEDICAL HISTORY : None. SURGICAL HISTORY : None. ENCOUNTER: Subsequent ACUITY: 2 weeks PAIN SCORE: 0/10 LOCATION: Bilateral chest FINDINGS: Bibasilar opacities are present may be due to a combination of consolidation and or pleural effusion. Perivascular pulmonary edema is seen as well. CONCLUSION: Bibasilar opacities are present may be due to a combination of consolidation and or pleural effusion and perivascular pulmonary edema slightly improved on the right side and appears slightly worse on th e left could be technical. Gisell Magaña MD on May 03, 2017 at 4:45 Board Certified Radiologist. This report was verified electronically.
[2017-05-03] MEDS: PIPERACIL-TAZO 4.5 GM PREMIX 100 ML IV SCH ×3 (05:49→18:11)
[2017-05-03] MEDS: PANTOPRAZOLE SODIUM 40 MG VIAL IV SCH (07:50)
[2017-05-03] MEDS: METOPROLOL TARTRATE 25 MG TAB PO SCH ×2 (07:51→20:43)
[2017-05-03] MEDS: ASPIRIN 81 MG CHEW TAB PO SCH (07:51)
[2017-05-03] MEDS: TAMSULOSIN HCL 0.4 MG CAP PO SCH (07:51)
[2017-05-03] MEDS: SODIUM CHLORIDE 0.9% FLUSH 10 ML FLUSH IV FLUSH SCH ×2 (07:52→20:42)
[2017-05-03 11:57] LABS: HEMATOCRIT 27.9 % (39.0-51.0); MEAN CELL VOLUME 90.2 FL (80.0-100.0); MEAN CORPUSCULAR HEMOGLOBIN 29.2 PG (27.0-34.0); MEAN CORPUSCULAR HGB CONC 32.4 % (32.0-36.0); PLATELET COUNT 499 TH/MM3 (150-450); REVIEW FLAG FINAL; WHITE BLOOD COUNT 12.6 TH/MM3 (4.0-11.0)
[2017-05-03 12:09] LABS: BICARBONATE 24.7 MEQ/L (21.0-32.0); MAGNESIUM 1.9 MG/DL (1.5-2.5)
[2017-05-03 12:13] LABS: POTASSIUM 2.7 MEQ/L (3.5-5.1)
[2017-05-03] MEDS ORDERED: POTASSIUM CHLORIDE 25 MEQ EFFERVESCENT TAB PO ONE (14:15)
--- NOTE | 2017-05-03 14:15 | HHI.CCPN ---
Subjective Remarks/Hospital Course 66-year-old male with a history of hypertension, hyperlipidemia, COPD, kidney stones presents to the emergency department for evaluation of right flank pain and chest pain. The patient states that he has kidney stones on his right side and had a stent placed by Dr. Herman 3 months ago with following lithotripsy. Per patient he never saw any stones pass in his urine after these procedures were done. States that he's been seeing him in the office recently for a recurrent urinary tract infection, finished Cipro one week ago. Over the past 4 days he's had worsening right flank pain and was told to come to the ED if his symptoms ever worsened. He also had for last 2 days multiple episodes of nonbloody nonbilious emesis with nausea. He's had loss of appetite. He states that since last night he's had lower bilateral chest pain intermittently that he describes as "feeling as though my lungs hurt." He denies any shortness of breath, difficulty breathing, lightheadedness, dizziness, fever, chills, diarrhea, constipation, hematuria. States that he does have burning with urination and cloudy urine which has been present for several weeks. He is scheduled to have the urinary stent removed at the end of this month. Subjective: 05/02: Tmax 97.6. Hemoglobin appears stabilized with the last 24 hours. Patient denies any pain, urine output is adequate. Overnight the patient became short of breath, when attempting to get up out of bed to bedside commode. Chest x-ray revealed this a.m., pulmonary edema, diuretic given. Physical therapy has been consulted for strengthening exercises and evaluation. 05/03: The patient underwent gentle diuresis with a total of Lasix yesterday. Resolution of dyspnea .IV heparin locked. The patient still complains of back pain, receiving [place] when necessary. Will add morphine PRN to medication regimen. Objective Vital Signs Date Time Temp Pulse Resp B/P Pulse Ox O2 Delivery O2 Flow Rate FiO2 05/03/17 12:00 103 05/03/17 12:00 97.8 22 109/59 97 05/03/17 07:45 Nasal Cannula 2.00 05/02/17 19:15 50 Intake and Output 05/02/17 05/02/17 05/03/17 08:00 16:00 00:00 Intake Total 686 ml 553 ml 659 ml Output Total 2 ml 1300 ml 400 ml Balance 684 ml -747 ml 259 ml Result Diagram: 05/03/17 1115 05/03/17 1115 Other Results Microbiology Date/Time Procedure Status Source Growth 05/01/17 00:05 Urine Culture - Final Complete Urine Clean Catch Adelina Albicans Imaging Last Impressions Chest X-Ray 05/02/17 0000 Signed Impressions: Service Date/Time: Tuesday, May 02, 2017 03:40 - CONCLUSION: Interval development of fairly extensive mixed interstitial and alveolar process in both lungs may represent pulmonary edema. Gisell Magaña MD Abdomen/Pelvis CT 04/30/172034 Signed Impressions: Service Date/Time: Sunday, April 30, 2017 21:31 - CONCLUSION: 1. Subacute appearing right perinephric hematomas. Please see above. 2. Large heterogeneous stone in the right renal pelvis. Right ureteral stent present. There is moderate to severe hydronephrosis, similar to before. 3. Persistent bladder stone, appears to be intramural. There is air in the wall focally adjacent to the stone and also air in the lumen. There could be a colovesical fistula. Sigmoid colon diverticulosis present but no acute inflammatory changes are seen. 4. Atherosclerosis of the abdominal aorta. 5. Mild atelectasis and small effusion of the visualized right lung base. Hi Kirkpatrick MD Last 24 hours Impressions Chest X-Ray 04/30/172034 Signed Impressions: Service Date/Time: Sunday, April 30, 2017 20:48 - CONCLUSION: Focal right upper lobe opacity, mass and localized infiltrate both in the differential. CT the chest recommended, preferably with intravenous contrast. Unchanged elevation of the left hemidiaphragm. Hi Kirkpatrick MD Abdomen/Pelvis CT 04/30/172034 Signed Impressions: Service Date/Time: Sunday, April 30, 2017 21:31 - CONCLUSION: 1. Subacute appearing right perinephric hematomas. Please see above. 2. Large heterogeneous stone in the right renal pelvis. Right ureteral stent present. There is moderate to severe hydronephrosis, similar to before. 3. Persistent bladder stone, appears to be intramural. There is air in the wall focally adjacent to the stone and also air in the lumen. There could be a colovesical fistula. Sigmoid colon diverticulosis present but no acute inflammatory changes are seen. 4. Atherosclerosis of the abdominal aorta. 5. Mild atelectasis and small effusion of the visualized right lung base. Hi Kirkpatrick MD Objective Remarks GENERAL: Well-nourished, well-developed patient currently on nasal cannula 2 L/m SKIN: Warm and dry. Minor ecchymotic bruising at IV sites noted HEAD: Normocephalic. EYES: No scleral icterus. No injection or drainage. NECK: Supple, trachea midline. No JVD or lymphadenopathy. CARDIOVASCULAR: Regular rate and rhythm without murmurs, gallops, or rubs. RESPIRATORY: Breath sounds equal bilaterally. Diminished in bases .No accessory muscle use. GASTROINTESTINAL: Abdomen soft, non-tender, nondistended. MUSCULOSKELETAL: No cyanosis, or edema. BACK: Nontender without obvious deformity. No CVA tenderness. EXTREMITIES: No clubbing cyanosis or edema NEURO: GCS 15, alert and oriented moves extremities 4 A/P Assessment and Plan Urosepsis - Obstructive hydronephrosis - Broad spectrum antibiotics-vancomycin and Zosyn (day 3/5) Diflucan (day 1) - 05/01 Blood cultures-NGTD --05/01 urine culture-Adelina albicans - De-escalate per sensitivity - Hep-Lock IV -Check postvoid residuals every shift Hyponatremia - Chronic - Likely due to chronic beer consumption - Sodium level in January 2017 at 122 - Sodium level improving Obstructive hydronephrosis Right perinephric hematoma S/P right UPJ stone status post cystoscopy with stent placement and ESWL (2016) - Urology following-Dr. Ewing -Conservative management-serial H&H monitoring-currently stable -Check postvoid residual History of hypertension - Hold home antihypertensive meds due to borderline blood pressure and sepsis - Resume when hemodynamically stable COPD Pulmonary edema - No exacerbation - No indication for steroids - DuoNeb's when necessary -05/02 Lasix 40 mg IV 2 doses Atypical chest pain Anterior apical [place] PAD Acute systolic heart failure - 05/01 troponins .06->.06->.04 - Cardiology following Dr. De Leon -metoprolol 12.5 twice a day, ASA decreased to 81 mg/day -05/01 ECHO EF 3035 percent, small pericardial effusion, anterolateral apical akinesis Alcohol dependency - Ativan 1mg q 4 hr for agitation -Monitor for delirium tremens DVT GI prophylaxis - Teds SCDs - Hold pharmacological DVT prophylaxis due to perinephritic hematoma's on the CT - Start upon approval by urology - IV Pepcid Dispo: Discussed with patient and [employer] ONCOLOGY MANAGER at bedside. Critical Care: Level 3 Physician Nicolle Vides MD May 03, 2017 14:15
[2017-05-03] MEDS: FLUCONAZOLE 400 MG PREMIX BAG 200 ML IV SCH (16:27)
[2017-05-03] MEDS: MORPHINE SULFATE 4 MG/ML INJ IV PUSH PRN ×2 (16:27→20:44)
--- NOTE | 2017-05-03 16:39 | PD.CARD.PN ---
Subjective Subjective Remarks SOB resolved. No angina Objective Medications Current Medications Medications (Trade) Dose Ordered Sig/Evelyne Route Start Time Stop Time Status Last Admin (NS 1000 ml Inj) 1,000 ml @ 30 mls/hr Q24H IV 05/01/17 00:42 05/03/17 02:24 (NS Flush) 2 ml UNSCH PRN IV FLUSH 05/01/17 00:45 (NS Flush) 2 ml BID IV FLUSH 05/01/17 09:00 05/02/17 20:55 (SoluCORTEF INJ) 50 mg Q6H IV 05/01/17 01:00 05/03/17 14:22 Pantoprazole Sodium 40 mg 40 mg DAILY IV 05/01/17 09:00 05/03/17 07:50 Piperacillin Sod/ Tazobactam Sod 100 ml @ 200 mls/hr Q6H IV 05/01/17 05:00 05/05/17 05:00 05/03/17 11:44 (Vancomycin Consult Pharmacy) 0 ml @ 0 mls/hr UNSCH OTHER 05/01/17 00:45 05/05/17 05:00 Miscellaneous Information 1 Q361D XX 05/01/17 00:45 05/01/17 00:45 (Chlorhexidine 2% Cloth) 3 pack Taper DAILY@04 TOP 05/01/17 04:00 04/27/18 03:59 05/03/17 04:00 (Chlorhexidine 2% Cloth) 3 pack UNSCH PRN TOP 05/01/17 00:45 ([place] 5-325 Mg) 1 tab Q4H PRN PO 05/01/17 01:15 05/03/17 02:24 (Pravachol) 20 mg HS PO 05/01/17 21:00 05/02/17 20:55 (Aspirin Chew) 81 mg DAILY PO 05/01/17 09:00 05/03/17 07:51 (Lopressor) 12.5 mg Q12HR PO 05/01/17 09:00 05/03/17 07:51 Miscellaneous 1 ea 1 ea UNSCH PRN OTHER 05/01/17 08:45 (Vancomycin Inj/ NS 250 ml Inj) 262.5 ml @ 250 mls/hr Q12H IV 05/01/17 12:00 Hold 05/02/17 15:55 Tamsulosin HCl 0.4 mg 0.4 mg DAILY PO 05/01/17 12:00 05/03/17 07:51 (Diflucan 400 Mg Premix Bag) 200 ml @ 100 mls/hr Q24H IV 05/03/17 15:00 05/03/17 16:27 (Morphine Inj) 1 mg Q4H PRN IV PUSH 05/03/17 14:45 05/03/17 16:27 Vital Signs / I&O Vital Signs Date Time Temp Pulse Resp B/P Pulse Ox O2 Delivery O2 Flow Rate FiO2 05/03/17 14:00 103 05/03/17 12:00 103 05/03/17 12:00 97.8 92 22 109/59 97 05/03/17 10:00 103 05/03/17 08:00 103 05/03/17 08:00 98.2 76 25 118/65 95 05/03/17 07:45 99 Nasal Cannula 2.00 05/03/17 06:00 95 05/03/17 04:00 97.7 84 16 114/58 92 05/03/17 04:00 84 05/03/17 02:00 83 05/03/17 00:00 87 05/03/17 00:00 97.5 87 19 112/59 94 05/02/17 23:04 95 Nasal Cannula 2.00 05/02/17 22:00 86 05/02/17 20:00 97.9 93 27 111/63 95 05/02/17 20:00 93 05/02/17 19:40 98 Nasal Cannula 3.00 05/02/17 19:15 98 Venturi Mask 6.00 50 05/02/17 18:00 91 I/O 05/02/17 05/02/17 05/02/17 05/03/17 05/03/17 05/03/17 07:00 15:00 23:00 07:00 15:00 23:00 Intake Total 686 ml 553 ml 659 ml 309 ml 816 ml Output Total 2 ml 1300 ml 400 ml 1000 ml 900 ml Balance 684 ml -747 ml 259 ml -691 ml -84 ml Intake Oral 100 ml 240 ml 240 ml 480 ml IV Total 586 ml 313 ml 419 ml 309 ml 336 ml Output Urine Total 1300 ml 400 ml 1000 ml 900 ml Stool Total 2 ml Bladder Scan Volume Amount 3 ml # Voids 3 # Bowel Movements 1 0 2 Physical Exam On nasal cannula Not in acute distress Chest: diminished BS CV S1S2S3 RRR No edema Laboratory Laboratory Tests Test 05/03/17 11:15 White Blood Count 12.6 TH/MM3 Red Blood Count 3.10 MIL/MM3 Hemoglobin 9.1 GM/DL Hematocrit 27.9 % Mean Corpuscular Volume 90.2 FL Mean Corpuscular Hemoglobin 29.2 PG Mean Corpuscular Hemoglobin 32.4 % Concent Red Cell Distribution Width 15.0 % Platelet Count 499 TH/MM3 Mean Platelet Volume 6.5 FL Sodium Level 134 MEQ/L Potassium Level 2.7 MEQ/L Chloride Level 99 MEQ/L Carbon Dioxide Level 24.7 MEQ/L Anion Gap 10 MEQ/L Blood Urea Nitrogen 18 MG/DL Creatinine 1.08 MG/DL Estimat Glomerular Filtration 68 ML/MIN Rate Random Glucose 205 MG/DL Calcium Level 7.5 MG/DL Phosphorus Level 3.6 MG/DL Magnesium Level 1.9 MG/DL Random Vancomycin Level 23.2 COMMENT Imaging Last 48 hours Impressions Chest X-Ray 05/03/17 0600 Signed Impressions: Service Date/Time: April 02:23 - CONCLUSION: Bibasilar opacities are present may be due to a combination of consolidation and or pleural effusion and perivascular pulmonary edema slightly improved on the right side and appears slightly worse on the left could be technical. Gisell Magaña MD Chest X-Ray 05/02/17 0000 Signed Impressions: Service Date/Time: Tuesday, May 02, 2017 03:40 - CONCLUSION: Interval development of fairly extensive mixed interstitial and alveolar process in both lungs may represent pulmonary edema. Gisell Magaña MD Assessment and Plan Problem List: (1) Ischemic cardiomyopathy Assessment and Plan: adding low-dose ACEI. Cont BB (2) Anteroapical myocardial infarction Assessment and Plan: when it occurred is unknown but well before this admit (3) Acute systolic (congestive) heart failure Assessment and Plan: now compensated (4) Peripheral arterial occlusive disease (5) COPD (chronic obstructive pulmonary disease) Chao De Leon MD May 03, 2017 16:39
[2017-05-03] MEDS: PRAVASTATIN SOD 20 MG TAB PO SCH (20:43)
[2017-05-04] VITALS (25 sets, daily range): BP systolic 123–139; BP diastolic 72–91; PULSE 62–132; RESP 18–20; TEMP 97.7–98.2; O2SAT 93–98
[2017-05-04] MEDS: HYDROCORTISONE SOD SUCCINATE 100 MG VIAL IV SCH ×3 (00:08→13:31)
[2017-05-04] MEDS: PIPERACIL-TAZO 4.5 GM PREMIX 100 ML IV SCH ×5 (00:08→22:41)
[2017-05-04] MEDS: MORPHINE SULFATE 4 MG/ML INJ IV PUSH PRN ×3 (01:44→22:41)
[2017-05-04] MEDS: CHLORHEXIDINE GLUCONATE 2 % 1 PACK (2 CLOTHS) TOP SCH (03:14)
[2017-05-04] MEDS: SODIUM CHLOR 0.9% 1000 ML INJ 1,000 ML IV SCH (03:22)
[2017-05-04] MEDS: RESP: ALBUTEROL 2.5 MG/IPRATROPIUM 0.5 MG NEB (SCH) INH ×4 (04:09→20:30)
[2017-05-04 07:22] LABS: HEMATOCRIT 27.9 % (39.0-51.0); MEAN CELL VOLUME 90.2 FL (80.0-100.0); MEAN CORPUSCULAR HEMOGLOBIN 29.5 PG (27.0-34.0); MEAN CORPUSCULAR HGB CONC 32.7 % (32.0-36.0); PLATELET COUNT 468 TH/MM3 (150-450); RED BLOOD COUNT 3.09 MIL/MM3 (4.50-5.90); RED CELL DISTRIBUTION WIDTH 15.3 % (11.6-17.2); REVIEW FLAG FINAL; WHITE BLOOD COUNT 10.2 TH/MM3 (4.0-11.0)
--- NOTE | 2017-05-04 07:27 | PD.CARD.PN ---
Subjective Subjective Remarks No complaints. Asking to go home Objective Medications Current Medications Medications (Trade) Dose Ordered Sig/Evelyne Route Start Time Stop Time Status Last Admin (NS 1000 ml Inj) 1,000 ml @ 30 mls/hr Q24H IV 05/01/17 00:42 05/03/17 02:24 (NS Flush) 2 ml UNSCH PRN IV FLUSH 05/01/17 00:45 (NS Flush) 2 ml BID IV FLUSH 05/01/17 09:00 05/03/17 20:42 (SoluCORTEF INJ) 50 mg Q6H IV 05/01/17 01:00 05/04/17 05:15 Pantoprazole Sodium 40 mg 40 mg DAILY IV 05/01/17 09:00 05/03/17 07:50 Piperacillin Sod/ Tazobactam Sod 100 ml @ 200 mls/hr Q6H IV 05/01/17 05:00 05/05/17 05:00 05/04/17 05:15 (Vancomycin Consult Pharmacy) 0 ml @ 0 mls/hr UNSCH OTHER 05/01/17 00:45 05/05/17 05:00 Miscellaneous Information 1 Q361D XX 05/01/17 00:45 05/01/17 00:45 (Chlorhexidine 2% Cloth) 3 pack Taper DAILY@04 TOP 05/01/17 04:00 04/27/18 03:59 05/03/17 04:00 (Chlorhexidine 2% Cloth) 3 pack UNSCH PRN TOP 05/01/17 00:45 ([place] 5-325 Mg) 1 tab Q4H PRN PO 05/01/17 01:15 05/03/17 02:24 (Pravachol) 20 mg HS PO 05/01/17 21:00 05/03/17 20:43 (Aspirin Chew) 81 mg DAILY PO 05/01/17 09:00 05/03/17 07:51 (Lopressor) 12.5 mg Q12HR PO 05/01/17 09:00 05/03/17 20:43 Miscellaneous 1 ea 1 ea UNSCH PRN OTHER 05/01/17 08:45 (Vancomycin Inj/ NS 250 ml Inj) 262.5 ml @ 250 mls/hr Q12H IV 05/01/17 12:00 Hold 05/02/17 15:55 Tamsulosin HCl 0.4 mg 0.4 mg DAILY PO 05/01/17 12:00 05/03/17 07:51 (Diflucan 400 Mg Premix Bag) 200 ml @ 100 mls/hr Q24H IV 05/03/17 15:00 05/03/17 16:27 (Morphine Inj) 1 mg Q4H PRN IV PUSH 05/03/17 14:45 05/04/17 01:44 (Prinivil) 5 mg DAILY PO 05/04/17 09:00 Vital Signs / I&O Vital Signs Date Time Temp Pulse Resp B/P Pulse Ox O2 Delivery O2 Flow Rate FiO2 05/04/17 06:00 76 05/04/17 05:00 88 05/04/17 04:00 64 05/04/17 04:00 98.2 84 18 130/75 93 05/04/17 04:00 Nasal Cannula 3.00 05/04/17 03:00 62 05/04/17 02:00 70 05/04/17 01:49 20 05/04/17 01:00 68 05/04/17 00:00 Nasal Cannula 2.00 05/04/17 00:00 72 05/04/17 00:00 96 Nasal Cannula 2.00 05/03/17 23:10 97.7 88 20 124/72 94 05/03/17 23:10 94 Nasal Cannula 2.00 05/03/17 22:00 76 05/03/17 20:36 96 Nasal Cannula 2.00 05/03/17 20:00 97.8 78 20 132/69 96 05/03/17 20:00 78 05/03/17 18:00 103 05/03/17 16:00 103 05/03/17 16:00 98.5 83 16 123/67 94 05/03/17 14:00 103 05/03/17 12:00 103 05/03/17 12:00 97.8 92 22 109/59 97 05/03/17 10:00 103 05/03/17 08:00 103 05/03/17 08:00 98.2 76 25 118/65 95 05/03/17 07:45 99 Nasal Cannula 2.00 I/O 05/03/17 05/03/17 05/03/17 05/04/17 05/04/17 05/04/17 07:00 15:00 23:00 07:00 15:00 23:00 Intake Total 309 ml 816 ml 120 ml 680 ml Output Total 1000 ml 900 ml 150 ml Balance -691 ml -84 ml -30 ml 680 ml Intake Oral 480 ml 120 ml 480 ml IV Total 309 ml 336 ml 0 ml 200 ml Output Urine Total 1000 ml 900 ml 150 ml Bladder Scan Volume Amount 3 ml # Voids 2 # Bowel Movements 0 2 1 1 Physical Exam On nasal cannula Not in acute distress Chest: diminished BS CV S1S2S3 RRR No edema Laboratory Laboratory Tests Test 05/03/17 05/04/17 11:15 06:42 White Blood Count 12.6 TH/MM3 10.2 TH/MM3 Red Blood Count 3.10 MIL/MM3 3.09 MIL/MM3 Hemoglobin 9.1 GM/DL 9.1 GM/DL Hematocrit 27.9 % 27.9 % Mean Corpuscular Volume 90.2 FL 90.2 FL Mean Corpuscular Hemoglobin 29.2 PG 29.5 PG Mean Corpuscular Hemoglobin 32.4 % 32.7 % Concent Red Cell Distribution Width 15.0 % 15.3 % Platelet Count 499 TH/MM3 468 TH/MM3 Mean Platelet Volume 6.5 FL 6.9 FL Sodium Level 134 MEQ/L Potassium Level 2.7 MEQ/L Chloride Level 99 MEQ/L Carbon Dioxide Level 24.7 MEQ/L Anion Gap 10 MEQ/L Blood Urea Nitrogen 18 MG/DL Creatinine 1.08 MG/DL Estimat Glomerular Filtration 68 ML/MIN Rate Random Glucose 205 MG/DL Calcium Level 7.5 MG/DL Phosphorus Level 3.6 MG/DL Magnesium Level 1.9 MG/DL Random Vancomycin Level 23.2 COMMENT Imaging Last 48 hours Impressions Chest X-Ray 05/03/17 0600 Signed Impressions: Service Date/Time: April 02:23 - CONCLUSION: Bibasilar opacities are present may be due to a combination of consolidation and or pleural effusion and perivascular pulmonary edema slightly improved on the right side and appears slightly worse on the left could be technical. Gisell Magaña MD Assessment and Plan Problem List: (1) Ischemic cardiomyopathy (2) Anteroapical myocardial infarction (3) Acute systolic (congestive) heart failure (4) Peripheral arterial occlusive disease (5) COPD (chronic obstructive pulmonary disease) Assessment and Plan Check mary-SPECT Chao De Leon MD May 04, 2017 07:27
[2017-05-04 07:51] LABS: BICARBONATE 24.7 MEQ/L (21.0-32.0)
[2017-05-04 08:10] LABS: POTASSIUM 2.8 MEQ/L (3.5-5.1)
[2017-05-04] MEDS ORDERED: POTASSIUM CHLORIDE 20 MEQ CONTROLLED RELEASE TAB PO ONE (08:45)
[2017-05-04] MEDS ORDERED: POTASSIUM CHLOR 20 MEQ PREMIX 100 ML IV ONE ×4 (08:45→13:45)
[2017-05-04] MEDS: TAMSULOSIN HCL 0.4 MG CAP PO SCH (08:46)
[2017-05-04] MEDS: ASPIRIN 81 MG CHEW TAB PO SCH (08:46)
[2017-05-04] MEDS: PANTOPRAZOLE SODIUM 40 MG VIAL IV SCH (08:46)
[2017-05-04] MEDS: LISINOPRIL 5 MG TAB PO SCH (08:46)
[2017-05-04] MEDS: METOPROLOL TARTRATE 25 MG TAB PO SCH ×2 (08:46→20:20)
[2017-05-04] MEDS: SODIUM CHLORIDE 0.9% FLUSH 10 ML FLUSH IV FLUSH SCH ×2 (08:47→20:20)
[2017-05-04] MEDS ORDERED: LISINOPRIL 5 MG TAB PO SCH (09:00)
[2017-05-04] MEDS ORDERED: VANCOMYCIN 1,000 MG/NS 250 ML IV ONE ×2 (12:00)
--- NOTE | 2017-05-04 13:49 | HHI.PR ---
Subjective Remarks Patient reports is feeling okay. No shortness of breath or chest pain. Potassium is 2.8 this morning. Cannot get nuclear stress test. Objective Vitals Vital Signs Date Time Temp Pulse Resp B/P Pulse Ox O2 Delivery O2 Flow Rate FiO2 05/04/17 12:00 92 05/04/17 12:00 97.8 82 18 124/81 95 05/04/17 11:00 86 05/04/17 10:00 86 05/04/17 09:00 100 05/04/17 08:31 96 Nasal Cannula 3.00 05/04/17 08:00 Nasal Cannula 3.00 05/04/17 08:00 97.8 89 18 131/72 95 05/04/17 08:00 132 05/04/17 07:00 72 05/04/17 06:00 76 05/04/17 05:00 88 05/04/17 04:00 64 05/04/17 04:00 98.2 84 18 130/75 93 05/04/17 04:00 Nasal Cannula 3.00 05/04/17 03:00 62 05/04/17 02:00 70 05/04/17 01:49 20 05/04/17 01:00 68 05/04/17 00:00 Nasal Cannula 2.00 05/04/17 00:00 72 05/04/17 00:00 96 Nasal Cannula 2.00 05/03/17 23:10 97.7 88 20 124/72 94 05/03/17 23:10 94 Nasal Cannula 2.00 05/03/17 22:00 76 05/03/17 20:36 96 Nasal Cannula 2.00 05/03/17 20:00 97.8 78 20 132/69 96 05/03/17 20:00 78 05/03/17 18:00 103 05/03/17 16:00 103 05/03/17 16:00 98.5 83 16 123/67 94 05/03/17 14:00 103 I/O 05/03/17 05/03/17 05/03/17 05/04/17 05/04/17 05/04/17 07:00 15:00 23:00 07:00 15:00 23:00 Intake Total 309 ml 816 ml 120 ml 680 ml Output Total 1000 ml 900 ml 150 ml Balance -691 ml -84 ml -30 ml 680 ml Intake Oral 480 ml 120 ml 480 ml IV Total 309 ml 336 ml 0 ml 200 ml Output Urine Total 1000 ml 900 ml 150 ml Bladder Scan Volume Amount 3 ml # Voids 2 # Bowel Movements 0 2 1 1 Result Diagram: 05/04/17 0642 05/04/17 0642 Imaging Last Impressions Chest X-Ray 05/03/17 0600 Signed Impressions: Service Date/Time: April 02:23 - CONCLUSION: Bibasilar opacities are present may be due to a combination of consolidation and or pleural effusion and perivascular pulmonary edema slightly improved on the right side and appears slightly worse on the left could be technical. Gisell Magaña MD Abdomen/Pelvis CT 04/30/172034 Signed Impressions: Service Date/Time: Sunday, April 30, 2017 21:31 - CONCLUSION: 1. Subacute appearing right perinephric hematomas. Please see above. 2. Large heterogeneous stone in the right renal pelvis. Right ureteral stent present. There is moderate to severe hydronephrosis, similar to before. 3. Persistent bladder stone, appears to be intramural. There is air in the wall focally adjacent to the stone and also air in the lumen. There could be a colovesical fistula. Sigmoid colon diverticulosis present but no acute inflammatory changes are seen. 4. Atherosclerosis of the abdominal aorta. 5. Mild atelectasis and small effusion of the visualized right lung base. Hi Kirkpatrick MD Objective Remarks GENERAL: Elderly male in no apparent distress. CARDIOVASCULAR: Normal rate and regular rhythm without murmurs, gallops, or rubs. RESPIRATORY: Good respiratory efforts. Diminished breath sounds at the bases otherwise Breath sounds equal and clear to auscultation bilaterally. GASTROINTESTINAL: Abdomen soft, non-tender, non-distended. Normal active bowel sounds MUSCULOSKELETAL: Extremities without cyanosis, or edema. NEURO: Alert & Oriented x4 to person, place, time, situation. Moves all ext x4 PSYCH: Appropriate mood and affect. A/P Assessment and Plan 66-year-old male with: Sepsis secondary to UTI - Obstructive hydronephrosis - Continue Broad spectrum antibiotics-vancomycin and Zosyn (day 3/5) Diflucan ( day 1) - 05/01 Blood cultures-NGTD --05/01 urine culture-so far growing Adelina albicans - Plan to De-escalate per sensitivity Atypical chest pain Anterior apical [place] PAD Acute systolic heart failure - 05/01 troponins .06->.06->.04 - Cardiology following Dr. De Leon -metoprolol 12.5 twice a day, ASA decreased to 81 mg/day -05/01 ECHO EF 3035 percent, small pericardial effusion, anterolateral apical akinesis - Nuclear stress tests ordered. On hold today due to hypokalemia. Hypokalemia: - Replace aggressively and recheck levels. Hyponatremia - Chronic - Likely due to chronic beer consumption - Sodium level in January 2017 at 122 - Sodium level improving Obstructive hydronephrosis Right perinephric hematoma S/P right UPJ stone status post cystoscopy with stent placement and ESWL (2016) - Urology following-Dr. Ewing -Conservative management-serial H&H monitoring-currently stable -Check postvoid residual History of hypertension - Hold home antihypertensive meds due to borderline blood pressure and sepsis - Resume when hemodynamically stable - Taper his stress dose steroid. Discontinue Solu-Cortef. Prednisone taper. Alcohol dependency - Ativan 1mg q 4 hr for agitation - Monitor for delirium tremens GI prophylaxis: PPI. Stool softener PRN constipation. DVT PPx: Romeo Peterson MD May 04, 2017 13:49
[2017-05-04] MEDS: FLUCONAZOLE 400 MG PREMIX BAG 200 ML IV SCH (15:07)
[2017-05-04] MEDS: PRAVASTATIN SOD 20 MG TAB PO SCH (20:20)
[2017-05-04] MEDS: predniSONE 20 MG TAB PO SCH (20:20)
[2017-05-04] MEDS: RESP: ALBUTEROL 2.5 MG/IPRATROPIUM 0.5 MG NEB (PRN) INH (23:28)
[2017-05-05] VITALS (23 sets, daily range): BP systolic 127–145; BP diastolic 78–96; PULSE 82–150; RESP 18–24; TEMP 97.3–97.9; O2SAT 90–96
[2017-05-05] MEDS: RESP: ALBUTEROL 2.5 MG/IPRATROPIUM 0.5 MG NEB (SCH) INH (03:26)
[2017-05-05] MEDS: CHLORHEXIDINE GLUCONATE 2 % 1 PACK (2 CLOTHS) TOP SCH (04:00)
[2017-05-05] MEDS: PIPERACIL-TAZO 4.5 GM PREMIX 100 ML IV SCH (04:22)
[2017-05-05] MEDS: SODIUM CHLOR 0.9% 1000 ML INJ 1,000 ML IV SCH (04:23)
[2017-05-05 05:46] LABS: HEMATOCRIT 28.6 % (39.0-51.0); MEAN CELL VOLUME 90.7 FL (80.0-100.0); MEAN CORPUSCULAR HEMOGLOBIN 29.8 PG (27.0-34.0); MEAN CORPUSCULAR HGB CONC 32.8 % (32.0-36.0); PLATELET COUNT 491 TH/MM3 (150-450); RED BLOOD COUNT 3.15 MIL/MM3 (4.50-5.90); REVIEW FLAG FINAL; WHITE BLOOD COUNT 13.2 TH/MM3 (4.0-11.0)
[2017-05-05 06:08] LABS: BICARBONATE 22.3 MEQ/L (21.0-32.0); POTASSIUM 4.1 MEQ/L (3.5-5.1)
[2017-05-05] MEDS: METOPROLOL TARTRATE 25 MG TAB PO SCH (08:47)
[2017-05-05] MEDS: LISINOPRIL 5 MG TAB PO SCH (08:47)
[2017-05-05] MEDS: PANTOPRAZOLE SOD 40 MG DELAYED RELEASE TAB PO SCH (08:47)
[2017-05-05] MEDS: ASPIRIN 81 MG CHEW TAB PO SCH (08:47)
[2017-05-05] MEDS: predniSONE 20 MG TAB PO SCH (08:47)
[2017-05-05] MEDS: TAMSULOSIN HCL 0.4 MG CAP PO SCH (08:48)
[2017-05-05] MEDS: SODIUM CHLORIDE 0.9% FLUSH 10 ML FLUSH IV FLUSH SCH ×2 (08:48→21:08)
[2017-05-05] MEDS: RESP: ALBUTEROL 2.5 MG/IPRATROPIUM 0.5 MG NEB (PRN) NEB ×3 (09:02→15:48)
--- NOTE | 2017-05-05 10:48 | HHI.PR ---
Objective Vitals Vital Signs Date Time Temp Pulse Resp B/P Pulse Ox O2 Delivery O2 Flow Rate FiO2 05/05/17 10:29 150 05/05/17 09:35 123 05/05/17 08:14 123 05/05/17 07:32 124 05/05/17 07:32 Nasal Cannula 3.00 05/05/17 07:32 97.7 105 20 144/87 93 05/05/17 06:00 92 05/05/17 05:00 101 05/05/17 04:00 97.9 100 18 129/85 93 05/05/17 04:00 Nasal Cannula 3.00 05/05/17 04:00 100 05/05/17 03:00 91 05/05/17 02:00 89 05/05/17 01:00 87 05/05/17 00:00 Nasal Cannula 3.00 05/05/17 00:00 82 05/05/17 00:00 97.7 82 18 127/78 96 05/04/17 23:00 92 05/04/17 22:00 89 05/04/17 21:00 92 05/04/17 20:31 98 Nasal Cannula 3.00 05/04/17 20:00 98.0 97 20 139/91 95 05/04/17 20:00 97 05/04/17 20:00 Nasal Cannula 3.00 05/04/17 18:00 92 05/04/17 17:00 86 05/04/17 16:00 102 05/04/17 16:00 97.7 99 20 123/72 94 05/04/17 15:08 18 05/04/17 15:00 128 05/04/17 14:00 86 05/04/17 13:00 90 05/04/17 12:00 92 05/04/17 12:00 97.8 82 18 124/81 95 05/04/17 11:00 86 I/O 05/04/17 05/04/17 05/04/17 05/05/17 05/05/17 05/05/17 07:00 15:00 23:00 07:00 15:00 23:00 Intake Total 680 ml 1398 ml 740 ml Output Total 500 ml Balance 680 ml 1398 ml 240 ml Intake Oral 480 ml 240 ml 240 ml IV Total 200 ml 1158 ml 500 ml Output Urine Total 500 ml # Voids 2 5 # Bowel Movements 1 3 0 Result Diagram: 05/05/1751205/05/17512 Objective Remarks GENERAL: Elderly male in no apparent distress. CARDIOVASCULAR: Normal rate and regular rhythm without murmurs, gallops, or rubs. RESPIRATORY: Good respiratory efforts. Diminished breath sounds at the bases otherwise Breath sounds equal and clear to auscultation bilaterally. GASTROINTESTINAL: Abdomen soft, non-tender, non-distended. Normal active bowel sounds MUSCULOSKELETAL: Extremities without cyanosis, or edema. NEURO: Alert & Oriented x4 to person, place, time, situation. Moves all ext x4 PSYCH: Appropriate mood and affect. A/P Assessment and Plan 66-year-old male with: Sepsis secondary to UTI - Obstructive hydronephrosis - Continue Broad spectrum antibiotics-vancomycin and Zosyn (day 3/5) Diflucan ( day 1) - 05/01 Blood cultures-NGTD --05/01 urine culture-so far growing Adelina albicans - Plan to De-escalate per sensitivity Atypical chest pain Anterior apical [place] PAD Acute systolic heart failure - 05/01 troponins .06->.06->.04 - Cardiology following Dr. De Leon -metoprolol 12.5 twice a day, ASA decreased to 81 mg/day -05/01 ECHO EF 3035 percent, small pericardial effusion, anterolateral apical akinesis - Nuclear stress tests ordered. On hold today due to hypokalemia. Hypokalemia: - Replace aggressively and recheck levels. Hyponatremia - Chronic - Likely due to chronic beer consumption - Sodium level in January 2017 at 122 - Sodium level improving Obstructive hydronephrosis Right perinephric hematoma S/P right UPJ stone status post cystoscopy with stent placement and ESWL (2016) - Urology following-Dr. Ewing -Conservative management-serial H&H monitoring-currently stable -Check postvoid residual History of hypertension - Hold home antihypertensive meds due to borderline blood pressure and sepsis - Resume when hemodynamically stable - Taper his stress dose steroid. Discontinue Solu-Cortef. Prednisone taper. Alcohol dependency - Ativan 1mg q 4 hr for agitation - Monitor for delirium tremens GI prophylaxis: PPI. Stool softener PRN constipation. DVT PPx: Romeo Peterson MD May 05, 2017 10:48
--- NOTE | 2017-05-05 10:58 | HHI.PR ---
Subjective Remarks The patient is tachypneic and tachycardic this morning. He denies chest pain. Objective Vitals Vital Signs Date Time Temp Pulse Resp B/P Pulse Ox O2 Delivery O2 Flow Rate FiO2 05/05/17 10:29 150 05/05/17 09:35 123 05/05/17 08:14 123 05/05/17 07:32 124 05/05/17 07:32 Nasal Cannula 3.00 05/05/17 07:32 97.7 105 20 144/87 93 05/05/17 06:00 92 05/05/17 05:00 101 05/05/17 04:00 97.9 100 18 129/85 93 05/05/17 04:00 Nasal Cannula 3.00 05/05/17 04:00 100 05/05/17 03:00 91 05/05/17 02:00 89 05/05/17 01:00 87 05/05/17 00:00 Nasal Cannula 3.00 05/05/17 00:00 82 05/05/17 00:00 97.7 82 18 127/78 96 05/04/17 23:00 92 05/04/17 22:00 89 05/04/17 21:00 92 05/04/17 20:31 98 Nasal Cannula 3.00 05/04/17 20:00 98.0 97 20 139/91 95 05/04/17 20:00 97 05/04/17 20:00 Nasal Cannula 3.00 05/04/17 18:00 92 05/04/17 17:00 86 05/04/17 16:00 102 05/04/17 16:00 97.7 99 20 123/72 94 05/04/17 15:08 18 05/04/17 15:00 128 05/04/17 14:00 86 05/04/17 13:00 90 05/04/17 12:00 92 05/04/17 12:00 97.8 82 18 124/81 95 05/04/17 11:00 86 I/O 05/04/17 05/04/17 05/04/17 05/05/17 05/05/17 05/05/17 07:00 15:00 23:00 07:00 15:00 23:00 Intake Total 680 ml 1398 ml 740 ml Output Total 500 ml Balance 680 ml 1398 ml 240 ml Intake Oral 480 ml 240 ml 240 ml IV Total 200 ml 1158 ml 500 ml Output Urine Total 500 ml # Voids 2 5 # Bowel Movements 1 3 0 Result Diagram: 05/05/1751205/05/17512 Objective Remarks GENERAL: Elderly male, tachypneic, anxious. CARDIOVASCULAR: Rate in the 120s and regular rhythm without murmurs, gallops, or rubs. RESPIRATORY: Poor air movement. There is diffuse wheezing throughout. GASTROINTESTINAL: Abdomen soft, non-tender, non-distended. Normal active bowel sounds MUSCULOSKELETAL: Extremities without cyanosis, or edema. NEURO: Alert & Oriented x4 to person, place, time, situation. Moves all ext x4 PSYCH: Anxious A/P Assessment and Plan 66-year-old male with: Acute on chronic respiratory failure 2/2 COPD exacerbation vs CHF: Patient has severe COPD. - Change back to IV Solumedrol - Breathing treatments and supplemental oxygen - Obtain chest x-ray - Consult Pulmonology Sepsis secondary to UTI - Obstructive hydronephrosis - Continue Diflucan - 05/01 Blood cultures-NGTD --05/01 urine culture-so far growing Adelina albicans Atypical chest pain Anterior apical [place] PAD Sinus tachycardia Acute systolic heart failure - 05/01 troponins .06->.06->.04 - Cardiology following Dr. De Leon -metoprolol 12.5 twice a day, ASA decreased to 81 mg/day - 05/01 ECHO EF 3035 percent, small pericardial effusion, anterolateral apical akinesis - Sinus tachycardia likely related to respiratory status. Give a dose of IV Lopressor and resume home dose Lopressor 50 mg BID. - Nuclear stress tests on hold today given his worsening respiratory status. Hypokalemia: - Replaced Hyponatremia - Chronic - Likely due to chronic beer consumption - Sodium level in January 2017 at 122 - Sodium level improving Obstructive hydronephrosis Right perinephric hematoma S/P right UPJ stone status post cystoscopy with stent placement and ESWL (2016) - Urology following-Dr. Ewing - Conservative management-serial H&H monitoring-currently stable - Check postvoid residual History of hypertension - Continue home meds Alcohol dependency - Ativan 1mg q 4 hr for agitation - Monitor for delirium tremens GI prophylaxis: PPI. Stool softener PRN constipation. DVT PPx: Romeo Peterson MD May 05, 2017 10:58 Romeo Moreno MD May 05, 2017 10:58
[2017-05-05] MEDS ORDERED: METOPROLOL TARTRATE 5 MG/5 ML VIAL IV PUSH ONE (11:00)
[2017-05-05] MEDS ORDERED: LORazepam 0.5 MG TAB PO ONE (11:15)
--- NOTE | 2017-05-05 12:14 | RADRPT ---
EXAM DATE/TIME: 05/05/2017 11:21 [facility] COMPARISON: CHEST SINGLE AP, May 03, 2017, 2:23. INDICATIONS : Difficulty breathing, shortness of breath MEDICAL HISTORY : None. SURGICAL HISTORY : None. ENCOUNTER: Subsequent ACUITY: 2 weeks PAIN SCORE: 0/10 LOCATION: Bilateral chest FINDINGS: Portable AP view of the chest demonstrates a normal-sized cardiac silhouette. There are bibasilar ple ural-parenchymal opacities. No pneumothorax is visualized. Bones and soft tissues demonstrate no acut e finding. CONCLUSION: Stable bibasilar opacities likely representing pleural effusion with associated volume loss and/or co nsolidation. Interstitial opacities may indicate pulmonary edema. Hi Rodriguez MD on May 05, 2017 at 12:10 Board Certified Radiologist. This report was verified electronically.
[2017-05-05] MEDS ORDERED: FUROSEMIDE 40 MG/4 ML VIAL IV PUSH ONE (12:45)
[2017-05-05] MEDS: methylPREDNISolone SOD SUCC 40 MG/1 ML VIAL IV PUSH SCH ×2 (13:40→21:05)
[2017-05-05] MEDS: FLUCONAZOLE 400 MG PREMIX BAG 200 ML IV SCH (15:48)
[2017-05-05] MEDS: METOPROLOL TARTRATE 50 MG TAB PO SCH (21:05)
[2017-05-05] MEDS: PRAVASTATIN SOD 20 MG TAB PO SCH (21:05)
[2017-05-05] MEDS: MORPHINE SULFATE 4 MG/ML INJ IV PUSH PRN (21:08)
[2017-05-06] VITALS (26 sets, daily range): BP systolic 126–143; BP diastolic 76–92; PULSE 82–135; RESP 18; TEMP 97.4–98.3; O2SAT 92–98
[2017-05-06] MEDS: RESP: ALBUTEROL 2.5 MG/IPRATROPIUM 0.5 MG NEB (PRN) NEB ×6 (03:10→23:55)
[2017-05-06] MEDS: CHLORHEXIDINE GLUCONATE 2 % 1 PACK (2 CLOTHS) TOP SCH (04:00)
[2017-05-06 04:07] LABS: HEMATOCRIT 30.3 % (39.0-51.0); MEAN CELL VOLUME 90.2 FL (80.0-100.0); MEAN CORPUSCULAR HEMOGLOBIN 29.8 PG (27.0-34.0); MEAN CORPUSCULAR HGB CONC 33.1 % (32.0-36.0); PLATELET COUNT 427 TH/MM3 (150-450); RED BLOOD COUNT 3.36 MIL/MM3 (4.50-5.90); RED CELL DISTRIBUTION WIDTH 15.1 % (11.6-17.2); REVIEW FLAG FINAL; WHITE BLOOD COUNT 13.9 TH/MM3 (4.0-11.0)
[2017-05-06 04:27] LABS: BICARBONATE 25.7 MEQ/L (21.0-32.0); POTASSIUM 3.5 MEQ/L (3.5-5.1)
[2017-05-06] MEDS: methylPREDNISolone SOD SUCC 40 MG/1 ML VIAL IV PUSH SCH ×3 (05:40→20:55)
[2017-05-06] MEDS: SODIUM CHLOR 0.9% 1000 ML INJ 1,000 ML IV SCH (05:40)
[2017-05-06] MEDS ORDERED: FUROSEMIDE 40 MG/4 ML VIAL IV PUSH ONE (08:30)
[2017-05-06] MEDS ORDERED: POTASSIUM CHLORIDE 20 MEQ CONTROLLED RELEASE TAB PO SCH (09:00)
[2017-05-06] MEDS: PANTOPRAZOLE SOD 40 MG DELAYED RELEASE TAB PO SCH (09:24)
[2017-05-06] MEDS: METOPROLOL TARTRATE 50 MG TAB PO SCH ×2 (09:24→20:55)
[2017-05-06] MEDS: TAMSULOSIN HCL 0.4 MG CAP PO SCH (09:25)
[2017-05-06] MEDS: ASPIRIN 81 MG CHEW TAB PO SCH (09:25)
[2017-05-06] MEDS: LISINOPRIL 5 MG TAB PO SCH (09:25)
[2017-05-06] MEDS: SODIUM CHLORIDE 0.9% FLUSH 10 ML FLUSH IV FLUSH SCH ×2 (09:26→20:55)
[2017-05-06] MEDS: MORPHINE SULFATE 4 MG/ML INJ IV PUSH PRN ×2 (09:35→20:58)
[2017-05-06] MEDS: POTASSIUM CHLORIDE 20 MEQ PWD PACKET PO SCH (09:44)
--- NOTE | 2017-05-06 09:53 | HHI.PR ---
Subjective Remarks Patient reports difficulty breathing again this morning. States he is having a hard time catching his breath. Reports he cannot take the oral potassium because the pills are too big. He denies chest pain. Objective Vitals Vital Signs Date Time Temp Pulse Resp B/P Pulse Ox O2 Delivery O2 Flow Rate FiO2 05/06/17 08:00 94 Nasal Cannula 4.00 05/06/17 07:54 89 05/06/17 07:00 97.6 92 18 143/92 92 05/06/17 07:00 Nasal Cannula 4.00 05/06/17 06:00 87 05/06/17 05:00 84 05/06/17 04:00 86 05/06/17 04:00 98.1 86 18 136/76 93 05/06/17 04:00 Nasal Cannula 3.00 05/06/17 03:00 90 05/06/17 02:00 84 05/06/17 01:00 96 05/06/17 00:00 98.3 92 18 126/83 92 05/06/17 00:00 92 05/06/17 00:00 Nasal Cannula 3.00 05/05/17 23:00 96 05/05/17 22:00 110 05/05/17 21:00 126 05/05/17 20:00 94 05/05/17 20:00 97.9 94 18 145/96 93 05/05/17 20:00 Nasal Cannula 3.00 05/05/17 19:10 Nasal Cannula 3.00 05/05/17 18:13 93 05/05/17 17:04 90 05/05/17 16:13 98 05/05/17 15:25 98 05/05/17 15:25 97.3 107 24 141/96 90 05/05/17 14:03 99 05/05/17 13:03 93 05/05/17 12:01 118 05/05/17 11:24 97.4 117 22 142/93 93 05/05/17 11:24 117 05/05/17 10:29 150 I/O 05/05/17 05/05/17 05/05/17 05/06/17 05/06/17 05/06/17 07:00 15:00 23:00 07:00 15:00 23:00 Intake Total 740 ml 240 ml 240 ml Output Total 500 ml 100 ml 500 ml Balance 240 ml 140 ml -260 ml Intake Oral 240 ml 240 ml 240 ml IV Total 500 ml Output Urine Total 500 ml 100 ml 500 ml # Voids 2 # Bowel Movements 0 1 1 Result Diagram: 05/06/176 05/06/17335 Objective Remarks GENERAL: Elderly male, tachypneic, anxious. CARDIOVASCULAR: Rate about 105 and regular rhythm without murmurs, gallops, or rubs. RESPIRATORY: Poor air movement. There is diffuse expiratory wheezing throughout. GASTROINTESTINAL: Abdomen soft, non-tender, non-distended. Normal active bowel sounds MUSCULOSKELETAL: Extremities without cyanosis, or edema. NEURO: Alert & Oriented x4 to person, place, time, situation. Moves all ext x4 PSYCH: Anxious A/P Assessment and Plan 66-year-old male with: Acute on chronic respiratory failure 2/2 COPD exacerbation and CHF: Patient has severe COPD. BNP 4k - Continue IV Solumedrol - Breathing treatments and supplemental oxygen - Lasix IV - Obtain chest x-ray - Consult Pulmonology. Suspect some component of anxiety as well. Ativan PRN. Sepsis secondary to UTI - Obstructive hydronephrosis - Continue Diflucan - 05/01 Blood cultures-NGTD --05/01 urine culture-so far growing Adelina albicans Atypical chest pain Anterior apical [place] PAD Sinus tachycardia Acute systolic CHF: - 05/01 troponin .06->.06->.04 - Cardiology following Dr. De Leon -metoprolol 12.5 twice a day, ASA decreased to 81 mg/day - 05/01 ECHO EF 3035 percent, small pericardial effusion, anterolateral apical akinesis - On Lasix per Cardiology. Metoprolol. Lisinopril - Nuclear stress tests on hold today again given his respiratory status. Hypokalemia: - Replaced Hyponatremia - Chronic - Likely due to chronic beer consumption - Sodium level in January 2017 at 122 - Sodium level improving Obstructive hydronephrosis Right perinephric hematoma S/P right UPJ stone status post cystoscopy with stent placement and ESWL (2016) - Urology following-Dr. Ewing - Conservative management-serial H&H monitoring-currently stable - Check postvoid residual History of hypertension - Continue home meds Alcohol dependency - Ativan 1mg q 4 hr for agitation - Monitor for delirium tremens GI prophylaxis: PPI. Stool softener PRN constipation. DVT PPx: Start Heparin sq Rimpel,Ricardy MD May 06, 2017 09:53
[2017-05-06] MEDS: HEPARIN SODIUM - SQ 10,000 UNITS/ML VIAL SQ SCH ×2 (11:59→17:53)
[2017-05-06] MEDS: FLUCONAZOLE 400 MG PREMIX BAG 200 ML IV SCH (14:55)
[2017-05-06] MEDS: ACETAMINOPHEN/HYDROcodone 325 MG/5 MG TAB PO PRN (20:55)
[2017-05-06] MEDS: PRAVASTATIN SOD 20 MG TAB PO SCH (20:55)
[2017-05-07] VITALS (26 sets, daily range): BP systolic 131–151; BP diastolic 84–96; PULSE 78–104; RESP 18–20; TEMP 97.3–98.6; O2SAT 92–99
[2017-05-07] MEDS: SODIUM CHLOR 0.9% 1000 ML INJ 1,000 ML IV SCH (02:20)
[2017-05-07] MEDS: HEPARIN SODIUM - SQ 10,000 UNITS/ML VIAL SQ SCH ×3 (02:20→17:33)
[2017-05-07] MEDS: MORPHINE SULFATE 4 MG/ML INJ IV PUSH PRN ×4 (03:31→23:36)
[2017-05-07] MEDS: CHLORHEXIDINE GLUCONATE 2 % 1 PACK (2 CLOTHS) TOP SCH (03:32)
[2017-05-07] MEDS: RESP: ALBUTEROL 2.5 MG/IPRATROPIUM 0.5 MG NEB (PRN) NEB ×4 (03:40→18:56)
[2017-05-07] MEDS: methylPREDNISolone SOD SUCC 40 MG/1 ML VIAL IV PUSH SCH ×3 (06:02→21:27)
[2017-05-07 06:15] LABS: HEMATOCRIT 27.5 % (39.0-51.0); MEAN CELL VOLUME 90.5 FL (80.0-100.0); MEAN CORPUSCULAR HEMOGLOBIN 29.5 PG (27.0-34.0); MEAN CORPUSCULAR HGB CONC 32.6 % (32.0-36.0); PLATELET COUNT 366 TH/MM3 (150-450); RED BLOOD COUNT 3.04 MIL/MM3 (4.50-5.90); RED CELL DISTRIBUTION WIDTH 15.6 % (11.6-17.2); REVIEW FLAG FINAL; WHITE BLOOD COUNT 9.7 TH/MM3 (4.0-11.0)
[2017-05-07 06:22] LABS: BICARBONATE 26.4 MEQ/L (21.0-32.0); MAGNESIUM 2.2 MG/DL (1.5-2.5); POTASSIUM 3.7 MEQ/L (3.5-5.1)
[2017-05-07] MEDS: METOPROLOL TARTRATE 50 MG TAB PO SCH ×2 (08:48→21:27)
[2017-05-07] MEDS: ASPIRIN 81 MG CHEW TAB PO SCH (08:49)
[2017-05-07] MEDS: POTASSIUM CHLORIDE 20 MEQ PWD PACKET PO SCH (08:49)
[2017-05-07] MEDS: LISINOPRIL 5 MG TAB PO SCH (08:49)
[2017-05-07] MEDS: PANTOPRAZOLE SOD 40 MG DELAYED RELEASE TAB PO SCH (08:49)
[2017-05-07] MEDS: FUROSEMIDE 40 MG TAB PO SCH (08:49)
[2017-05-07] MEDS: TAMSULOSIN HCL 0.4 MG CAP PO SCH (08:49)
[2017-05-07] MEDS: SODIUM CHLORIDE 0.9% FLUSH 10 ML FLUSH IV FLUSH SCH ×2 (08:51→21:28)
--- NOTE | 2017-05-07 09:53 | PD.CARD.PN ---
Subjective Subjective Remarks no complaints Objective Medications Current Medications Medications (Trade) Dose Ordered Sig/Evelyne Route Start Time Stop Time Status Last Admin (NS 1000 ml Inj) 1,000 ml @ 30 mls/hr Q24H IV 05/01/17 00:42 05/07/17 02:20 (NS Flush) 2 ml UNSCH PRN IV FLUSH 05/01/17 00:45 (NS Flush) 2 ml BID IV FLUSH 05/01/17 09:00 05/07/17 08:51 Miscellaneous Information 1 Q361D XX 05/01/17 00:45 05/01/17 00:45 (Chlorhexidine 2% Cloth) Taper DAILY@04 TOP 05/01/17 04:00 04/27/18 03:59 05/03/17 04:00 (Chlorhexidine 2% Cloth) 3 pack UNSCH PRN TOP 05/01/17 00:45 ([place] 5-325 Mg) 1 tab Q4H PRN PO 05/01/17 01:15 05/06/17 20:55 (Pravachol) 20 mg HS PO 05/01/17 21:00 05/06/17 20:55 (Aspirin Chew) 81 mg DAILY PO 05/01/17 09:00 05/07/17 08:49 (Pill Splitter) 1 ea UNSCH PRN OTHER 05/01/17 08:45 Tamsulosin HCl 0.4 mg 0.4 mg DAILY PO 05/01/17 12:00 05/07/17 08:49 (Diflucan 400 Mg Premix Bag) 200 ml @ 100 mls/hr Q24H IV 05/03/17 15:00 05/06/17 14:55 (Morphine Inj) 1 mg Q4H PRN IV PUSH 05/03/17 14:45 05/07/17 09:30 (Prinivil) 5 mg DAILY PO 05/04/17 09:00 05/07/17 08:49 (Protonix) 40 mg DAILY PO 05/05/17 09:00 05/07/17 08:49 (Lopressor) 50 mg Q12HR PO 05/05/17 21:00 05/07/17 08:48 (SoluMEDROL INJ) 40 mg Q8HR IV PUSH 05/05/17 14:00 05/07/17 06:02 (Lasix) 40 mg DAILY PO 05/07/17 09:00 05/07/17 08:49 (KCl Powder) 40 meq DAILY PO 05/06/17 09:44 05/07/17 08:49 (Heparin Inj) 5,000 units Q8H SQ 05/06/17 10:00 05/07/17 09:30 Vital Signs / I&O Vital Signs Date Time Temp Pulse Resp B/P Pulse Ox O2 Delivery O2 Flow Rate FiO2 05/07/17 09:38 99 05/07/17 09:37 18 05/07/17 08:08 104 05/07/17 07:54 96 Nasal Cannula 6.00 05/07/17 07:48 98 05/07/17 07:48 98.6 98 18 142/96 99 05/07/17 07:48 92 Nasal Cannula 3.00 05/07/17 06:00 86 05/07/17 05:00 89 05/07/17 04:00 Nasal Cannula 3.00 05/07/17 04:00 78 05/07/17 04:00 98.4 78 18 131/84 94 05/07/17 03:40 95 Nasal Cannula 6.00 05/07/17 03:00 88 05/07/17 02:00 85 05/07/17 01:00 91 05/07/17 00:00 98.0 86 18 135/89 92 05/07/17 00:00 Nasal Cannula 3.00 05/07/17 00:00 86 05/06/17 23:00 96 05/06/17 22:00 84 05/06/17 21:00 96 05/06/17 20:03 98 Nasal Cannula 6.00 05/06/17 20:00 82 05/06/17 20:00 Nasal Cannula 3.00 05/06/17 20:00 97.9 82 18 136/79 93 05/06/17 18:09 97 05/06/17 17:10 95 05/06/17 16:03 97 05/06/17 15:51 87 05/06/17 15:23 97.4 93 18 133/82 95 05/06/17 14:00 89 05/06/17 13:00 98 05/06/17 12:19 108 05/06/17 11:00 117 05/06/17 11:00 97.6 94 18 136/87 94 05/06/17 10:04 134 I/O 05/06/17 05/06/17 05/06/17 05/07/17 05/07/17 05/07/17 07:00 15:00 23:00 07:00 15:00 23:00 Intake Total 240 ml 450 ml 540 ml Output Total 500 ml 480 ml 500 ml Balance -260 ml -30 ml 40 ml Intake Oral 240 ml 450 ml 240 ml IV Total 300 ml Output Urine Total 500 ml 480 ml 500 ml # Bowel Movements 1 1 1 Physical Exam On nasal cannula Not in acute distress Chest: diminished BS CV [id number] RRR No edema Laboratory Laboratory Tests Test 05/07/17 05:10 White Blood Count 9.7 TH/MM3 Red Blood Count 3.04 MIL/MM3 Hemoglobin 9.0 GM/DL Hematocrit 27.5 % Mean Corpuscular Volume 90.5 FL Mean Corpuscular Hemoglobin 29.5 PG Mean Corpuscular Hemoglobin 32.6 % Concent Red Cell Distribution Width 15.6 % Platelet Count 366 TH/MM3 Mean Platelet Volume 7.1 FL Sodium Level 139 MEQ/L Potassium Level 3.7 MEQ/L Chloride Level 103 MEQ/L Carbon Dioxide Level 26.4 MEQ/L Anion Gap 10 MEQ/L Blood Urea Nitrogen 30 MG/DL Creatinine 0.85 MG/DL Estimat Glomerular Filtration 90 ML/MIN Rate Random Glucose 147 MG/DL Calcium Level 7.6 MG/DL Magnesium Level 2.2 MG/DL Assessment and Plan Problem List: (1) Ischemic cardiomyopathy (2) Anteroapical myocardial infarction (3) Acute systolic (congestive) heart failure Assessment and Plan: more stable now (4) Peripheral arterial occlusive disease (5) COPD (chronic obstructive pulmonary disease) Chao De Leon MD May 07, 2017 09:53
--- NOTE | 2017-05-07 10:41 | HHI.PR ---
Subjective Remarks Much better today. Breathing status have improved. No chest pain. Feels comfortable with doing a stress test today. Hoping to go home soon. Objective Vitals Vital Signs Date Time Temp Pulse Resp B/P Pulse Ox O2 Delivery O2 Flow Rate FiO2 05/07/17 10:16 92 05/07/17 09:38 99 05/07/17 09:37 18 05/07/17 08:08 104 05/07/17 07:54 96 Nasal Cannula 6.00 05/07/17 07:48 98 05/07/17 07:48 98.6 98 18 142/96 99 05/07/17 07:48 92 Nasal Cannula 3.00 05/07/17 06:00 86 05/07/17 05:00 89 05/07/17 04:00 Nasal Cannula 3.00 05/07/17 04:00 78 05/07/17 04:00 98.4 78 18 131/84 94 05/07/17 03:40 95 Nasal Cannula 6.00 05/07/17 03:00 88 05/07/17 02:00 85 05/07/17 01:00 91 05/07/17 00:00 98.0 86 18 135/89 92 05/07/17 00:00 Nasal Cannula 3.00 05/07/17 00:00 86 05/06/17 23:00 96 05/06/17 22:00 84 05/06/17 21:00 96 05/06/17 20:03 98 Nasal Cannula 6.00 05/06/17 20:00 82 05/06/17 20:00 Nasal Cannula 3.00 05/06/17 20:00 97.9 82 18 136/79 93 05/06/17 18:09 97 05/06/17 17:10 95 05/06/17 16:03 97 05/06/17 15:51 87 05/06/17 15:23 97.4 93 18 133/82 95 05/06/17 14:00 89 05/06/17 13:00 98 05/06/17 12:19 108 05/06/17 11:00 117 05/06/17 11:00 97.6 94 18 136/87 94 I/O 6/18/17 6/18/17 6/18/17 6/19/17 6/19/17 6/19/17 07:00 15:00 23:00 07:00 15:00 23:00 Intake Total 240 ml 450 ml 540 ml Output Total 500 ml 480 ml 500 ml Balance -260 ml -30 ml 40 ml Intake Oral 240 ml 450 ml 240 ml IV Total 300 ml Output Urine Total 500 ml 480 ml 500 ml # Bowel Movements 1 1 1 Result Diagram: 05/07/17 0510 05/07/17509 Objective Remarks GENERAL: Elderly male in no acute distress CARDIOVASCULAR: Rate about 90 and regular rhythm without murmurs, gallops, or rubs. RESPIRATORY: Better air movement. Diminished breath sounds at the bases. Faint expiratory wheezing. GASTROINTESTINAL: Abdomen soft, non-tender, non-distended. Normal active bowel sounds MUSCULOSKELETAL: Extremities without cyanosis, or edema. NEURO: Alert & Oriented x4 to person, place, time, situation. Moves all ext x4 PSYCH: Calm A/P Assessment and Plan 66-year-old male with: Acute on chronic respiratory failure 2/2 COPD exacerbation and CHF: Patient has severe COPD. BNP 4k - Continue IV Solumedrol - Breathing treatments and supplemental oxygen -Continue Lasix Sepsis secondary to UTI - Obstructive hydronephrosis - Continue Diflucan - 05/01 Blood cultures-NGTD --05/01 urine culture-so far growing Adelina albicans. Transition to oral Diflucan Atypical chest pain Anterior apical [place] PAD Sinus tachycardia Acute systolic CHF: - 05/01 troponin .06->.06->.04 - Cardiology following Dr. De Leon -metoprolol 12.5 twice a day, ASA decreased to 81 mg/day - 05/01 ECHO EF 3035 percent, small pericardial effusion, anterolateral apical akinesis - On Lasix per Cardiology. Metoprolol. Lisinopril - Nuclear stress tests today Hypokalemia: - Replaced Hyponatremia - Chronic - Likely due to chronic beer consumption - Sodium level in January 2017 at 122 - Sodium level improving Obstructive hydronephrosis Right perinephric hematoma S/P right UPJ stone status post cystoscopy with stent placement and ESWL (2016) - Urology following-Dr. Ewing - Conservative management-serial H&H monitoring-currently stable History of hypertension - Continue home meds Alcohol dependency - Ativan 1mg q 4 hr for agitation - Monitor for delirium tremens GI prophylaxis: PPI. Stool softener PRN constipation. DVT PPx: Heparin sq Rimpel,Ricardy MD May 07, 2017 10:41
[2017-05-07] MEDS ORDERED: REGADENOSON INJ 0.4 MG/5 ML SYR ONE (11:56)
--- NOTE | 2017-05-07 13:54 | RADRPT ---
EXAM DATE/TIME: 05/07/2017 11:24 [facility] COMPARISON: No previous studies available for comparison. INDICATIONS : Right chest and flank pain for one day. Coronary atherosclerosis. DOSE: 27.0 mCi Tc99m Myoview at stress. 8.5 mCi Tc99m Myoview at rest. 0.4 mg Lexiscan STRESS SYMPTOMS: Dyspnea. EJECTION FRACTION: 36% MEDICAL HISTORY : Hypertension. Peripheral vascular disease. Chronic obstructive pulmonary disease. SURGICAL HISTORY : Renal stent. ENCOUNTER: Initial ACUITY: 1 day PAIN SCALE: 10/10 LOCATION: Right chest TECHNIQUE: The patient underwent pharmacologic stress with infusion of prescribed dose. Continuous ECG tracing was monitored during stress. Gated SPECT imaging was performed after stress and conventional SPECT i maging was performed at rest. The examination was performed on a SPECT/CT scanner, both attenuation and non-corrected datasets were reviewed. FINDINGS: DISTRIBUTION: The maximum perfused segment at stress is in the anterior wall. PERFUSION STUDY: There is a large fixed matched defect on the stress and rest images involving much of the apical port ion of the left ventricle. There is some decreased activity on the stress images at the periphery of this large fixed defect at the septum and inferior lateral perkins near the base. The decreased activit y is in the order of 20% which is borderline for ischemia. GATED STUDY: There is global hypokinesis and a decreased ejection fraction. CONCLUSION: Large fixed defect involving much the apex with some peripheral mild suspected ischemia at the septum and inferolateral perkins. There is a decreased ejection fraction and global hypokinesis. RISK CATEGORY: High (>3% Annual Mortality Rate) Hi Newman MD on May 07, 2017 at 13:48 Board Certified Radiologist. This report was verified electronically.
[2017-05-07] MEDS: FLUCONAZOLE 200 MG TAB PO SCH (15:58)
[2017-05-07] MEDS: PRAVASTATIN SOD 20 MG TAB PO SCH (21:27)
[2017-05-08] VITALS (16 sets, daily range): BP systolic 139–153; BP diastolic 85–90; PULSE 72–99; RESP 18–20; TEMP 97.5–97.7; O2SAT 94–96
[2017-05-08] MEDS: RESP: ALBUTEROL 2.5 MG/IPRATROPIUM 0.5 MG NEB (PRN) NEB ×5 (01:48→11:58)
[2017-05-08] MEDS: HEPARIN SODIUM - SQ 10,000 UNITS/ML VIAL SQ SCH ×2 (01:54→09:08)
[2017-05-08] MEDS: CHLORHEXIDINE GLUCONATE 2 % 1 PACK (2 CLOTHS) TOP SCH (01:54)
[2017-05-08] MEDS: methylPREDNISolone SOD SUCC 40 MG/1 ML VIAL IV PUSH SCH ×2 (05:06→14:21)
--- NOTE | 2017-05-08 08:13 | PD.CARD.PN ---
Subjective Subjective Remarks No angina Objective Medications Current Medications Medications (Trade) Dose Ordered Sig/Evelyne Route Start Time Stop Time Status Last Admin (NS Flush) 2 ml UNSCH PRN IV FLUSH 05/01/17 00:45 (NS Flush) 2 ml BID IV FLUSH 05/01/17 09:00 05/07/17 21:28 Miscellaneous Information 1 Q361D XX 05/01/17 00:45 05/01/17 00:45 (Chlorhexidine 2% Cloth) Taper DAILY@04 TOP 05/01/17 04:00 04/27/18 03:59 05/03/17 04:00 (Chlorhexidine 2% Cloth) 3 pack UNSCH PRN TOP 05/01/17 00:45 ([place] 5-325 Mg) 1 tab Q4H PRN PO 05/01/17 01:15 05/06/17 20:55 (Pravachol) 20 mg HS PO 05/01/17 21:00 05/07/17 21:27 (Aspirin Chew) 81 mg DAILY PO 05/01/17 09:00 05/07/17 08:49 (Pill Splitter) 1 ea UNSCH PRN OTHER 05/01/17 08:45 (Flomax) 0.4 mg DAILY PO 05/01/17 12:00 05/07/17 08:49 (Morphine Inj) 1 mg Q4H PRN IV PUSH 05/03/17 14:45 05/07/17 23:36 (Prinivil) 5 mg DAILY PO 05/04/17 09:00 05/07/17 08:49 (Protonix) 40 mg DAILY PO 05/05/17 09:00 05/07/17 08:49 (Lopressor) 50 mg Q12HR PO 05/05/17 21:00 05/07/17 21:27 (SoluMEDROL INJ) 40 mg Q8HR IV PUSH 05/05/17 14:00 05/08/17 05:06 (Lasix) 40 mg DAILY PO 05/07/17 09:00 05/07/17 08:49 (KCl Powder) 40 meq DAILY PO 05/06/17 09:44 05/07/17 08:49 (Heparin Inj) 5,000 units Q8H SQ 05/06/17 10:00 05/08/17 01:54 (Diflucan) 400 mg Q24H PO 05/07/17 15:00 05/17/17 14:59 05/07/17 15:58 Vital Signs / I&O Vital Signs Date Time Temp Pulse Resp B/P Pulse Ox O2 Delivery O2 Flow Rate FiO2 05/08/17 06:00 78 05/08/17 05:00 72 05/08/17 04:00 74 05/08/17 04:00 97.5 97 18 148/88 94 05/08/17 04:00 94 Nasal Cannula 3.00 05/08/17 03:00 74 05/08/17 02:00 98 05/08/17 01:58 139/85 05/08/17 01:00 86 05/08/17 00:00 76 05/07/17 23:41 20 05/07/17 23:35 98.2 91 20 151/95 96 05/07/17 23:35 95 Nasal Cannula 3.00 05/07/17 23:00 82 05/07/17 22:00 86 05/07/17 21:00 82 05/07/17 20:00 97.5 95 18 144/93 95 05/07/17 20:00 95 Nasal Cannula 3.00 05/07/17 20:00 100 05/07/17 19:00 84 05/07/17 18:10 85 05/07/17 17:08 81 05/07/17 16:03 96 05/07/17 15:48 89 05/07/17 15:48 89 05/07/17 15:48 97.3 89 18 141/94 99 05/07/17 15:48 82 05/07/17 15:26 93 Nasal Cannula 3.00 05/07/17 14:45 82 05/07/17 11:34 101 05/07/17 11:34 98.0 101 18 146/87 97 05/07/17 10:16 92 05/07/17 09:38 99 I/O 05/07/17 05/07/17 05/07/17 05/08/17 05/08/17 05/08/17 06:59 14:59 22:59 06:59 14:59 22:59 Intake Total 540 ml 640 ml 580 ml Output Total 500 ml 900 ml 380 ml Balance 40 ml -260 ml 200 ml Intake Oral 240 ml 640 ml 220 ml IV Total 300 ml 360 ml Output Urine Total 500 ml 900 ml 380 ml # Voids 3 # Bowel Movements 1 2 1 Physical Exam On nasal cannula Not in acute distress Chest: diminished BS CV [id number] RRR No edema Laboratory Laboratory Tests Test 05/04/17 05/05/17 05/07/17 06:42 05:13 05:10 Phosphorus Level 2.9 MG/DL B-Type Natriuretic Peptide 4477 PG/ML Random Vancomycin Level 17.1 COMMENT White Blood Count 9.7 TH/MM3 Red Blood Count 3.04 MIL/MM3 Hemoglobin 9.0 GM/DL Hematocrit 27.5 % Mean Corpuscular Volume 90.5 FL Mean Corpuscular Hemoglobin 29.5 PG Mean Corpuscular Hemoglobin 32.6 % Concent Red Cell Distribution Width 15.6 % Platelet Count 366 TH/MM3 Mean Platelet Volume 7.1 FL Sodium Level 139 MEQ/L Potassium Level 3.7 MEQ/L Chloride Level 103 MEQ/L Carbon Dioxide Level 26.4 MEQ/L Anion Gap 10 MEQ/L Blood Urea Nitrogen 30 MG/DL Creatinine 0.85 MG/DL Estimat Glomerular Filtration 90 ML/MIN Rate Random Glucose 147 MG/DL Calcium Level 7.6 MG/DL Magnesium Level 2.2 MG/DL Imaging Last 48 hours Impressions Myocardial Perfusion Scan Nuc Med 05/07/17 0000 Signed Impressions: Service Date/Time: Sunday, May 07, 2017 11:24 - CONCLUSION: Large fixed defect involving much the apex with some peripheral mild suspected ischemia at the septum and inferolateral perkins. There is a decreased ejection fraction and global hypokinesis. RISK CATEGORY: High (>3%% Annual Mortality Rate) Hi Newman MD Assessment and Plan Problem List: (1) Ischemic cardiomyopathy Assessment and Plan: severe (2) Anteroapical myocardial infarction Assessment and Plan: mostly scar by SPECT. He declines cardiac cath (3) Acute systolic (congestive) heart failure Assessment and Plan: compensated (4) Peripheral arterial occlusive disease Assessment and Plan: severe (5) COPD (chronic obstructive pulmonary disease) Assessment and Plan: severe (6) Consumes three beers daily Assessment and Plan: advised to stop drinking Assessment and Plan Prognosis is poor due to poor nutrional status, CAD, extensive RI, O2 dependent COPD. Needs OV 2 weeks Chao De Leon MD May 08, 2017 08:13
[2017-05-08] MEDS ORDERED: PRED20 PO (08:54)
[2017-05-08] MEDS ORDERED: FURO40TA PO (08:54)
[2017-05-08] MEDS ORDERED: TAMS5CAP PO (08:54)
[2017-05-08] MEDS ORDERED: DIFL200T PO (08:54)
[2017-05-08] MEDS ORDERED: METO50TA PO (08:54)
[2017-05-08] MEDS ORDERED: LISI-519 PO (08:54)
[2017-05-08] MEDS ORDERED: PANT40TA3 PO (08:54)
--- NOTE | 2017-05-08 08:56 | HHI.DCPOC ---
Discharge Care Plan Diagnosis: (1) Ischemic cardiomyopathy (2) Acute systolic (congestive) heart failure (3) Hydronephrosis (4) Renal calculus, right (5) UTI (urinary tract infection) (6) Sepsis Goals to Promote Your Health * To prevent worsening of your condition and complications * To maintain your health at the optimal level Directions to Meet Your Goals Take your medications as prescribed Follow your dietary instruction Follow activity as directed Keep your appointments as scheduled Take your immunizations and boosters as scheduled If your symptoms worsen call your PCP, if no PCP go to Urgent Care Center or Emergency Room Smoking is Dangerous to Your Health. Avoid second hand smoke Call the 24-hour hour crisis hotline for domestic abuse at Romeo Moreno MD May 08, 2017 08:56
--- NOTE | 2017-05-08 08:56 | HHI.DS ---
Discharge Summary Admission Date Apr 30, 2017 at 23:59 Discharge Date: May 08, 2017 Admitting Diagnosis Sepsis (PNA, ), NSTEMI, Dyspnea, Acidosis (1) Sepsis ICD Code: A41.9 (2) Ischemic cardiomyopathy ICD Code: I25.5 (3) Acute systolic (congestive) heart failure ICD Code: I50.21 (4) Hydronephrosis ICD Code: N13.30 (5) Nephrolithiasis ICD Code: N20.0 (6) Renal hematoma ICD Code: S37.019A (7) COPD (chronic obstructive pulmonary disease) ICD Code: J44.9 (8) Renal calculus, right ICD Code: N20.0 (9) HTN (hypertension) ICD Code: I10 Procedures None Brief History - From Admission History of present illness from the admitting physician 66-year-old male with a history of hypertension, hyperlipidemia, COPD, kidney stones presents to the emergency department for evaluation of right flank pain and chest pain. The patient states that he has kidney stones on his right side and had a stent placed by Dr. Herman 3 months ago with following lithotripsy. Per patient he never saw any stones pass in his urine after these procedures were done. States that he's been seeing him in the office recently for a recurrent urinary tract infection, finished Cipro one week ago. Over the past 4 days he's had worsening right flank pain and was told to come to the ED if his symptoms ever worsened. He also had for last 2 days multiple episodes of nonbloody nonbilious emesis with nausea. He's had loss of appetite. He states that since last night he's had lower bilateral chest pain intermittently that he describes as "feeling as though my lungs hurt." He denies any shortness of breath, difficulty breathing, lightheadedness, dizziness, fever, chills, diarrhea, constipation, hematuria. States that he does have burning with urination and cloudy urine which has been present for several weeks. He is scheduled to have the urinary stent removed at the end of this month. CBC/BMP: 05/07/17 0510 05/07/17 0510 Significant Findings Laboratory Tests Test 05/06/17 05/07/17 03:36 05:10 White Blood Count 13.9 TH/MM3 (4.0-11.0) Red Blood Count 3.36 MIL/MM3 3.04 MIL/MM3 (4.50-5.90) (4.50-5.90) Hemoglobin 10.0 GM/DL 9.0 GM/DL (13.0-17.0) (13.0-17.0) Hematocrit 30.3 % 27.5 % (39.0-51.0) (39.0-51.0) Mean Platelet Volume 6.9 FL (7.0-11.0) Blood Urea Nitrogen 25 MG/DL (7-18) 30 MG/DL (7-18) Estimat Glomerular Filtration 75 ML/MIN (>89) Rate Random Glucose 162 MG/DL 147 MG/DL (74-106) (74-106) Calcium Level 8.2 MG/DL 7.6 MG/DL (8.5-10.1) (8.5-10.1) Imaging Last Impressions Myocardial Perfusion Scan Nuc Med 05/07/17 0000 Signed Impressions: Service Date/Time: Sunday, May 07, 2017 11:24 - CONCLUSION: Large fixed defect involving much the apex with some peripheral mild suspected ischemia at the septum and inferolateral perkins. There is a decreased ejection fraction and global hypokinesis. RISK CATEGORY: High (>3%% Annual Mortality Rate) Hi Newman MD Chest X-Ray 05/05/17 0000 Signed Impressions: Service Date/Time: Friday, May 05, 2017 11:21 - CONCLUSION: Stable bibasilar opacities likely representing pleural effusion with associated volume loss and/or consolidation. Interstitial opacities may indicate pulmonary edema. Hi Rodriguez MD Abdomen/Pelvis CT 04/30/[id number] Signed Impressions: Service Date/Time: Sunday, April 30, 2017 21:31 - CONCLUSION: 1. Subacute appearing right perinephric hematomas. Please see above. 2. Large heterogeneous stone in the right renal pelvis. Right ureteral stent present. There is moderate to severe hydronephrosis, similar to before. 3. Persistent bladder stone, appears to be intramural. There is air in the wall focally adjacent to the stone and also air in the lumen. There could be a colovesical fistula. Sigmoid colon diverticulosis present but no acute inflammatory changes are seen. 4. Atherosclerosis of the abdominal aorta. 5. Mild atelectasis and small effusion of the visualized right lung base. Hi Kirkpatrick MD PE at Discharge GENERAL: Elderly male in no acute distress CARDIOVASCULAR: Rate about 90 and regular rhythm without murmurs, gallops, or rubs. RESPIRATORY: Better air movement. Diminished breath sounds at the bases. Faint expiratory wheezing. GASTROINTESTINAL: Abdomen soft, non-tender, non-distended. Normal active bowel sounds MUSCULOSKELETAL: Extremities without cyanosis, or edema. NEURO: Alert & Oriented x4 to person, place, time, situation. Moves all ext x4 PSYCH: Calm Pt update on day of discharge Patient reports is feeling great. States he is going home today. He denies chest pain. Shortness of breath is at baseline but notes that he will need oxygen to go home with. Hospital Course 66-year-old male with multiple comorbid conditions initially admitted for sepsis secondary to UTI. Evaluation and treatment course detailed below: Sepsis secondary to UTI - Obstructive hydronephrosis - Urine culture grew Adelina. The patient was treated with Diflucan. He is to continue on oral Diflucan to complete the course of treatment. - 05/01 Blood negative Acute on chronic respiratory failure 2/2 COPD exacerbation and CHF: Patient has severe COPD. he also went into acute systolic CHF exacerbation with BNP 4k - Patient followed by cardiology. He was diuresed with IV Lasix with improvement in symptoms. He was treated with IV Solu-Medrol and transitioned to oral prednisone on discharge. - Breathing treatments and supplemental oxygen. He will have a walk oxygen tests done and if qualified he will be sent home with oxygen. - Continue Lasix Atypical chest pain Anterior apical IL PAD Sinus tachycardia Acute systolic CHF: - 05/01 troponin .06->.06->.04 - Cardiology followed Dr. De Leon -metoprolol 50 mg twice a day, ASA decreased to 81 mg/day - 05/01 ECHO EF 3035 percent, small pericardial effusion, anterolateral apical akinesis - On Lasix per Cardiology. Metoprolol. Lisinopril - Nuclear stress tests revealed fixed perfusion defects. Patient declined heart catheterization. Continue medical management. Hypokalemia: - Replaced. Resolved Hyponatremia - Chronic - Likely due to chronic beer consumption - Sodium level in January 2017 at 122 - Sodium level improved. Asymptomatic. Obstructive hydronephrosis Right perinephric hematoma S/P right UPJ stone status post cystoscopy with stent placement and ESWL (2016) - Urology followed-Dr. Ewing - Conservative management-serial H&H remained stable. Aspirin dose decreased as above. Follow up outpatient with urology History of hypertension - Continue home meds Alcohol dependency - Ativan 1mg q 4 hr for agitation -Patient was counseled on cessation. GI prophylaxis: PPI. Stool softener PRN constipation. Pt Condition on Discharge: Stable Discharge Disposition: Discharge Home Discharge Time: > 30 minutes Discharge Instructions DIET: Follow Instructions for: Heart Healthy Diet Activities you can perform: Regular-No Restrictions Follow up Referrals: Cardiology - 2 Weeks with Chao De Leon MD Urology - 2 Weeks with Rg Ewing MD New Medications: Oxygen (O2) (Oxygen (O2)) Device 2 LITER LUZ.CANULA CONTINUOUS Oxygen Concentrator Portable Gaseous 2 L/min via Nasal Canula Continuous For 99 months Prevent Hypoxemia #2 CYLINDER Prednisone (Prednisone) 20 Mg Tab 20 MG PO DIRECTED Take 60 MG daily x 4 days, then 40 MG x 4 days, then 20 MG daily x 4 days. #24 Ref 0 TAB Fluconazole (Diflucan) 200 Mg Tab 400 MG PO Q24H #9 TAB Furosemide (Furosemide) 40 Mg Tab 40 MG PO DAILY #30 TAB Lisinopril (Lisinopril) 5 Mg Tab 5 MG PO DAILY #30 TAB Pantoprazole (Pantoprazole) 40 Mg Tab 40 MG PO DAILY #30 TAB Tamsulosin (Flomax) 0.4 Mg Cap 0.4 MG PO DAILY #30 CAP Changed Medications: Metoprolol Tartrate (Metoprolol Tartrate) 50 Mg Tab 50 MG PO BID #60 Ref 0 TAB (Changed from: DAILY; 30) Continued Medications: Albuterol Neb (Albuterol Neb) 2.5 Mg/0.5 Ml Neb 2.5 MG NEB BID Note: The Albuterol Sulfate Inhalation Solution is concentrated and must be diluted. Read complete instructions carefully before using. Breathing Treatment #1 Ref 0 NEBULE Aspirin (Aspirin) 81 Mg Chew 81 MG CHEW DAILY #30 Ref 0 TAB Guaifenesin ER 12 HR (Mucinex ER 12 HR) 600 Mg Kaylen 600 MG PO BID COPD #30 Ref 0 TAB Hydrocodone-Acetaminophen (Lortab) 5-325 Mg Tab 1 TAB PO Q4H Do not take this medicine if you will drive a car or use a machine , only use it when resting at home. PRN PAIN #20 Ref 0 TAB Pravastatin (Pravastatin) 20 Mg Tab 20 MG PO HS Cholesterol Management #30 Ref 0 TAB Sucralfate (Carafate) 1 Gm Tab 1 GM PO ACHS GERD #120 Ref 0 TAB Discontinued Medications: Amlodipine-Benazepril (Amlodipine-Benazepril) 2.5-10 Mg Cap 1 CAP PO DAILY Blood Pressure Management #30 Ref 0 CAP Ciprofloxacin (Cipro) 500 Mg Tab 500 MG PO BID Infection #14 Ref 0 TAB Romeo Moreno MD May 08, 2017 08:56
[2017-05-08] MEDS ORDERED: OXYGENDME NAS.CANULA (08:57)
[2017-05-08] MEDS: SODIUM CHLORIDE 0.9% FLUSH 10 ML FLUSH IV FLUSH SCH (09:00)
[2017-05-08] MEDS: ASPIRIN 81 MG CHEW TAB PO SCH (09:07)
[2017-05-08] MEDS: POTASSIUM CHLORIDE 20 MEQ PWD PACKET PO SCH (09:07)
[2017-05-08] MEDS: PANTOPRAZOLE SOD 40 MG DELAYED RELEASE TAB PO SCH (09:07)
[2017-05-08] MEDS: TAMSULOSIN HCL 0.4 MG CAP PO SCH (09:07)
[2017-05-08] MEDS: METOPROLOL TARTRATE 50 MG TAB PO SCH (09:07)
[2017-05-08] MEDS: FUROSEMIDE 40 MG TAB PO SCH (09:07)
[2017-05-08] MEDS: LISINOPRIL 5 MG TAB PO SCH (09:08)
[2017-05-08] MEDS: ACETAMINOPHEN/HYDROcodone 325 MG/5 MG TAB PO PRN (09:15)
[2017-05-08] MEDS ORDERED: ASPI81CH CHEW (09:24)
[2017-05-08] MEDS: FLUCONAZOLE 200 MG TAB PO SCH (14:21)
[2017-05-08] MEDS ORDERED: WALKER WHEELS/F1 MIS (17:42)
== END 2017-05-08 15:23 | disposition home or self-care (01) | DRG 871 ==
LOC: NEPE 18:28 → NEDA 23:59 → HIMW 05-01 01:45 → HCIS 05-03 23:01
PROVIDERS: ADMIT Family Medicine; ATTEND Family Medicine
DX: A41.9 Sepsis, unspecified organism (principal); I21.4 Non-ST elevation (NSTEMI) myocardial infarction; J96.20 Acute and chronic respiratory failure, unspecified whether with hypoxia or hypercapnia; J81.1 Chronic pulmonary edema; I50.23 Acute on chronic systolic (congestive) heart failure; I31.3 Pericardial effusion (noninflammatory); E87.1 Hypo-osmolality and hyponatremia; N13.2 Hydronephrosis with renal and ureteral calculous obstruction; S37.011A Minor contusion of right kidney, initial encounter; N39.0 Urinary tract infection, site not specified; J98.11 Atelectasis; J44.1 Chronic obstructive pulmonary disease with (acute) exacerbation; R63.0 Anorexia; E11.9 Type 2 diabetes mellitus without complications; D64.9 Anemia, unspecified; I73.9 Peripheral vascular disease, unspecified; I25.10 Atherosclerotic heart disease of native coronary artery without angina pectoris; I11.0 Hypertensive heart disease with heart failure; I25.5 Ischemic cardiomyopathy; M19.90 Unspecified osteoarthritis, unspecified site; N21.0 Calculus in bladder; E78.5 Hyperlipidemia, unspecified; I25.2 Old myocardial infarction; E87.6 Hypokalemia; R00.0 Tachycardia, unspecified; F10.20 Alcohol dependence, uncomplicated; Z80.1 Family history of malignant neoplasm of trachea, bronchus and lung; Z82.49 Family history of ischemic heart disease and other diseases of the circulatory system; Z87.891 Personal history of nicotine dependence; Z99.81 Dependence on supplemental oxygen
CPT/HCPCS: 36600; 71010; 74176; 76937; 78452; 80048; 80053; 80061; 80202; 81001; 82550; 82805; 83605; 83690; 83735; 83880; 84100; 84132; 84484; 85007; 85014; 85018; 85025; 85027; 85610; 85730; 86850; 86900; 86901; 87040; 87086; 87641; 93005; 93017; 93306; 94002; 94150; 94620; 94640; 94664; 96365; 96375; A9502; C9113; J0131; J1170; J1450; J1644; J1720; J1940; J2270; J2405; J2543; J2785; J2920; J3370; J3480; J7030; J7040; J7050; J7512; J7613